=== PATIENT | female | born 1930 | race Two or more races ===

== ENCOUNTER 2017-08-10 12:53 | Inpatient (IN) | payer MEDICARE ==
[2017-08-10] MEDS ORDERED: DILTIAZEM 50 MG in SODIUM CHLORIDE 0.9% 40 ML IV ONE (13:19)
[2017-08-10 13:50] LABS: Basophils % (A) 0 %; Eosinophils % (A) 0 %; HCT 41.1 % (34.0-46.0); HGB 13.3 gm/dL (11.4-16.0); Lymphocytes # (A) 1.3 k/uL (1.0-4.8); Lymphocytes % (A) 13 %; MCH 30.1 pg (25.0-35.0); MCHC 32.3 g/dL (31.0-37.0); Mean Platelet Volume 7.3; Monocytes # (A) 0.6 k/uL (0-1.0); Monocytes % (A) 6 %; Neutrophils % (A) 80 %; Platelet Count 189 k/uL (150-450); RBC 4.42 m/uL (3.80-5.40); RDW 12.9 % (11.5-15.5)
[2017-08-10 13:56] LABS: Prothrombin Time 9.9 sec (9.0-12.0)
--- NOTE | 2017-08-10 13:57 | XR ---
EXAMINATION TYPE: XR chest 2V DATE OF EXAM: 08/10/2017 HISTORY: difficulty breathing. REFERENCE: Previous study dated 08/07/2014. FINDINGS: Lung volumes are prominent. There are chronic interstitial changes. There is no superimpose d pneumonia or edema. Pleural spaces are clear. The heart is mildly enlarged. IMPRESSION: 1. COPD AND CHRONIC INTERSTITIAL CHANGE. 2. MILD CARDIOMEGALY.
[2017-08-10 14:00] LABS: Albumin 3.7 g/dL (3.5-5.0); Potassium 3.9 mmol/L (3.5-5.1); Total Bilirubin 0.5 mg/dL (0.2-1.3); Total Protein 6.3 g/dL (6.3-8.2)
[2017-08-10 14:06] LABS: Partial Thromboplastin Time 19.4 sec (22.0-30.0)
--- NOTE | 2017-08-10 14:07 | ED ---
General Adult HPI - General Chief complaint: Shortness of Breath Stated complaint: AIMEE Time Seen by Provider: 08/10/17 12:54 Source: patient, EMS, RN notes reviewed, old records reviewed Mode of arrival: EMS - History of Present Illness Initial comments: This is an 87 female to the ER for evasive shortness of breath increased cough and congestion positive COPD no chest pain. Patient has multiple recent hospital admissions. No recent fevers. Patient denies active chest pain. She does admit to again continue shortness of breath, feels lightheaded, feels like her heart is racing. Patient does have history of atrial fibrillation, not currently on blood thinners - Related Data Home Medications Medication Instructions Recorded Confirmed Atenolol [Tenormin] 25 mg PO DAILY 08/07/14 08/10/17 Digoxin [Lanoxin] 125 mcg PO DAILY 08/07/14 08/10/17 Furosemide [Lasix] 40 mg PO DAILY 08/07/14 08/10/17 Insulin Glargine [Lantus] 32 unit SQ DAILY 08/07/14 08/10/17 Potassium Chloride [Klor-Con 10] 10 meq PO DAILY 08/07/14 08/10/17 clonazePAM [KlonoPIN] 1 mg PO TID 08/07/14 08/10/17 Allergies Allergy/AdvReac Type Severity Reaction Status Date / Time amoxicillin [From Augmentin] Allergy Unknown Verified 08/10/17 13:54 clavulanic acid Allergy Unknown Verified 08/10/17 13:54 [From Augmentin] levofloxacin [From Levaquin] Allergy Hives/Vomit Verified 08/10/17 13:54 ing Penicillins Allergy Rash/Hives Verified 08/10/17 13:54 Sulfa (Sulfonamide Allergy Confusion Verified 08/10/17 13:54 Antibiotics) MEGHAN Inhibitors AdvReac COUGHING Verified 08/10/17 13:54 albuterol AdvReac Rapid Verified 08/10/17 13:54 Heart Rate alprazolam [From Xanax] AdvReac Unknown Verified 08/10/17 13:54 candesartan [From Atacand] AdvReac Blood Verified 08/10/17 13:54 pressure drops carvedilol [From Coreg] AdvReac Hallucinati Verified 08/10/17 13:54 ons ciprofloxacin [From Cipro] AdvReac Vomiting Verified 08/10/17 13:54 ciprofloxacin HCl AdvReac Vomiting Verified 08/10/17 13:54 [From Cipro] clindamycin AdvReac Nausea & Verified 08/10/17 13:54 Vomiting codeine AdvReac Nausea Verified 08/10/17 13:54 doxycycline AdvReac shaking Verified 08/10/17 13:54 midazolam HCl [From Versed] AdvReac Confusion Verified 08/10/17 13:54 spironolactone AdvReac ANXIETY Verified 08/10/17 13:54 steroids AdvReac Confusion Uncoded 08/10/17 13:09 Review of Systems ROS Statement: Those systems with pertinent positive or pertinent negative responses have been documented in the HPI. ROS Other: All systems not noted in ROS Statement are negative. Past Medical History Past Medical History: Atrial Fibrillation, Chest Pain / Angina, Heart Failure, Diabetes Mellitus, Hyperlipidemia, Hypertension, Myocardial Infarction ([place]) Additional Past Medical History / Comment(s): bronchitis Last Myocardial Infarction Date:: 1994 History of Any Multi-Drug Resistant Organisms: None Reported Past Surgical History: Breast Surgery, Joint Replacement, Orthopedic Surgery, Tonsillectomy, Tubal Ligation Additional Past Surgical History / Comment(s): "negative stress test years ago" , benign breast tumors removed, total knee replacement right leg Past Anesthesia/Blood Transfusion Reactions: No Reported Reaction Past Psychological History: Anxiety Smoking Status: Never smoker Past Alcohol Use History: None Reported Past Drug Use History: None Reported - Past Family History Daughter(s) Family Medical History: Pulmonary Embolus General Exam General appearance: alert, anxious, in distress Head exam: Present: atraumatic, normocephalic, normal inspection Eye exam: Present: normal appearance, PERRL, EOMI. Absent: scleral icterus, conjunctival injection, periorbital swelling ENT exam: Present: normal exam, mucous membranes moist Neck exam: Present: normal inspection. Absent: tenderness, meningismus, lymphadenopathy Respiratory exam: Present: respiratory distress, wheezes, accessory muscle use, decreased breath sounds, prolonged expiratory. Absent: rales, rhonchi, stridor Cardiovascular Exam: Present: tachycardia, irregular rhythm, normal heart sounds. Absent: systolic murmur, diastolic murmur, rubs, gallop, clicks GI/Abdominal exam: Present: soft, normal bowel sounds. Absent: distended, tenderness, guarding, rebound, rigid Extremities exam: Present: normal inspection, full ROM, normal capillary refill. Absent: tenderness, pedal edema, joint swelling, calf tenderness Back exam: Present: normal inspection Neurological exam: Present: alert, oriented X3, CN II-XII intact Psychiatric exam: Present: normal affect, normal mood Skin exam: Present: warm, dry, intact, normal color. Absent: rash Course Vital Signs 08/10/17 13:09 Temperature 97.3 F L Pulse Rate 150 H Respiratory 26 H Rate O2 Sat by Pulse 99 Oximetry EKG Findings - EKG Comments: EKG Findings:: EKG shows A. fib with RVR rate 149, QRS 142, QTc 444 Medical Decision Making - Medical Decision Making 87 female the ER for evaluation of positive shortness of breath, and A. fib with RVR with active COPD. Patient be admitted for cardiopulmonary monitoring and evaluation treatment - Lab Data Result diagrams: 08/10/17 13:36 08/10/17 13:36 Lab Results 08/10/17 08/10/17 08/10/17 Range/Units 13:36 13:36 13:36 WBC 10.0 (3.8-10.6) k/uL RBC 4.42 (3.80-5.40) m/uL Hgb 13.3 (11.4-16.0) gm/dL Hct 41.1 (34.0-46.0) % MCV 93.0 (80.0-100.0) fL MCH 30.1 (25.0-35.0) pg MCHC 32.3 (31.0-37.0) g/dL RDW 12.9 (11.5-15.5) % Plt Count 189 (150-450) k/uL Neutrophils % 80 % Lymphocytes % 13 % Monocytes % 6 % Eosinophils % 0 % Basophils % 0 % Neutrophils # 8.0 H (1.3-7.7) k/uL Lymphocytes # 1.3 (1.0-4.8) k/uL Monocytes # 0.6 (0-1.0) k/uL Eosinophils # 0.0 (0-0.7) k/uL Basophils # 0.0 (0-0.2) k/uL PT 9.9 (9.0-12.0) sec INR 1.0 (<1.2) APTT 19.4 L (22.0-30.0) sec Sodium 139 (137-145) mmol/L Potassium 3.9 (3.5-5.1) mmol/L Chloride 102 (98-107) mmol/L Carbon Dioxide 24 (22-30) mmol/L Anion Gap 13 mmol/L BUN 31 H (7-17) mg/dL Creatinine 0.81 (0.52-1.04) mg/dL Est GFR (CKD-EPI)AfAm 77 (>60 ml/min/1.73 sqM) Est GFR (CKD-EPI)NonAf 67 (>60 ml/min/1.73 sqM) Glucose 316 H (74-99) mg/dL Calcium 9.0 (8.4-10.2) mg/dL Total Bilirubin 0.5 (0.2-1.3) mg/dL AST 220 H (14-36) U/L ALT 236 H (9-52) U/L Alkaline Phosphatase 56 (38-126) U/L Total Protein 6.3 (6.3-8.2) g/dL Albumin 3.7 (3.5-5.0) g/dL - Radiology Data Radiology results: report reviewed (Chest x-ray negative), image reviewed Critical Care Time Critical Care Time: Yes Total Critical Care Time: 31 Disposition Clinical Impression: Acute exacerbation of chronic obstructive airways disease, Atrial fibrillation with RVR Disposition: ADMITTED IP TO THIS HOSP Condition: Fair Referrals: Tamiko Lee MD [Primary Care Provider] - 1-2 days
[2017-08-10 14:23] LABS: Creatine Kinase MB 1.3 ng/mL (0.0-2.4)
[2017-08-10 14:25] LABS: Troponin I 0.051 ng/mL (0.000-0.034)
[2017-08-10] MEDS ORDERED: NITROGLYCERIN SL TABS 0.4 MG TAB SUBLINGUAL PRN (14:25)
[2017-08-10] MEDS ORDERED: ASPIRIN 81 MG PO STA (14:25)
[2017-08-10 15:23] LABS: Appearance,Urine Clear (Clear); Bilirubin,Urine Negative (Negative); Blood,Urine Negative (Negative); Color,Urine Colorless; Glucose,Urine (UA) 3+ (Negative); Ketones,Urine Negative (Negative); Leukocyte Esterase,Urine Negative (Negative); Nitrite,Urine Negative (Negative); Protein,Urine Negative (Negative); Specific Gravity,Urine 1.007 (1.001-1.035); Urobilinogen,Urine <2.0 mg/dL (<2.0)
[2017-08-10 17:24] LABS: Glucose,Whole Blood 220 mg/dL (75-99)
[2017-08-10] MEDS ORDERED: clonazePAM 1 MG TAB PO PRN (18:12)
[2017-08-10 20:49] LABS: Glucose,Whole Blood 256 mg/dL (75-99)
[2017-08-10 20:57] LABS: Creatine Kinase MB 1.6 ng/mL (0.0-2.4)
[2017-08-10 20:59] LABS: Troponin I 0.087 ng/mL (0.000-0.034)
[2017-08-10] MEDS: DILTIAZEM 50 MG in SODIUM CHLORIDE 0.9% 40 ML IV SCH (21:12)
[2017-08-10] MEDS ORDERED: DEXTROSE 5% IN WATER 100 ML with AMIODARONE 150 MG IV ONE (23:08)
[2017-08-10] MEDS ORDERED: LORazepam 2 MG/ML INJ IV PRN (23:58)
[2017-08-11 00:34] LABS: Glucose,Whole Blood 217 mg/dL (75-99)
[2017-08-11] MEDS: AMIODARONE 450 MG in DEXTROSE 5% IN WATER 250 ML IV SCH ×8 (00:38→22:13)
[2017-08-11] MEDS ORDERED: FUROSEMIDE 10 MG/ML 4 ML VIAL ONE (00:59)
[2017-08-11 01:32] LABS: Basophils # (A) 0.1 k/uL (0-0.2); Basophils % (A) 0 %; Eosinophils # (A) 0.1 k/uL (0-0.7); Eosinophils % (A) 0 %; HCT 43.3 % (34.0-46.0); HGB 14.3 gm/dL (11.4-16.0); Lymphocytes # (A) 3.8 k/uL (1.0-4.8); Lymphocytes % (A) 20 %; MCH 30.5 pg (25.0-35.0); MCHC 32.9 g/dL (31.0-37.0); MCV 92.5 fL (80.0-100.0); Mean Platelet Volume 7.2; Monocytes # (A) 1.3 k/uL (0-1.0); Monocytes % (A) 7 %; Neutrophils # (A) 13.6 k/uL (1.3-7.7); Neutrophils % (A) 71 %; Platelet Count 222 k/uL (150-450); RBC 4.68 m/uL (3.80-5.40); RDW 12.9 % (11.5-15.5); WBC 19.1 k/uL (3.8-10.6)
[2017-08-11 01:38] LABS: ABG Base Excess -3.4 mmol/L; ABG HCO3 25 mmol/L (21-25); ABG Oxygen Saturation 92.2 % (94-97); ABG PCO2 64 mmHg (35-45); ABG PO2 77 mmHg (83-108); ABG TCO2 27 mmol/L (19-24)
[2017-08-11 01:43] LABS: Calcium 9.7 mg/dL (8.4-10.2); Potassium 4.1 mmol/L (3.5-5.1)
[2017-08-11] MEDS ORDERED: PROPOFOL 100 ML IV ONE (01:55)
[2017-08-11 01:59] LABS: Glucose,Whole Blood 290 mg/dL (75-99)
[2017-08-11] MEDS ORDERED: ETOMIDATE 2 MG/ML 10 ML VIAL ONE (02:00)
[2017-08-11] MEDS ORDERED: SUCCINYLCHOLINE CHLORIDE 100 MG/5 ML SYR IV ONE (02:00)
--- NOTE | 2017-08-11 02:02 | XR ---
EXAMINATION TYPE: XR chest 1V portable DATE OF EXAM: 08/11/2017 COMPARISON: Yesterday HISTORY: Short of breath TECHNIQUE: Single frontal view of the chest is obtained. FINDINGS: There is pulmonary vascular congestion and pulmonary interstitial and alveolar edema. Thor acic aorta is atheromatous. There are chest leads. Heart appears not grossly enlarged. IMPRESSION: There is new pulmonary edema compared to yesterday and consistent with acute heart failu re.
[2017-08-11] MEDS ORDERED: SODIUM BICARB 8.4% 50 ML SYR (1 MEQ/ML) IV ONE (02:05)
[2017-08-11] MEDS ORDERED: SODIUM BICARB 8.4% 50 ML SYR (1 MEQ/ML) ONE (02:07)
[2017-08-11 02:10] LABS: Creatine Kinase MB 1.7 ng/mL (0.0-2.4)
[2017-08-11 02:17] LABS: Troponin I 0.081 ng/mL (0.000-0.034)
[2017-08-11] MEDS ORDERED: NALOXONE 0.4 MG/ML 1 ML VIAL IV PRN (02:41)
--- NOTE | 2017-08-11 02:42 | XR ---
EXAMINATION TYPE: XR chest 1V DATE OF EXAM: 08/11/2017 COMPARISON: 08/11/2017, 1 hour ago HISTORY: Check tube placement TECHNIQUE: Single frontal view of the chest is obtained. FINDINGS: Endotracheal tube is present and is 7 cm from the forrest. Nasogastric tube appears in good position. There is some pulmonary edema. There are chest leads. IMPRESSION: Pulmonary edema probably due to heart failure without change compared to the exam one ho ur ago. Endotracheal tube is somewhat high and could be advanced 2 cm.
[2017-08-11] MEDS ORDERED: NOREPINEPHRIN 4 MG-0.9% NS PMX 4 MG/250 ML ML IV ONE (03:06)
[2017-08-11] MEDS ORDERED: HEPARIN SODIUM,PORCINE 10,000 UNIT/ML 1 ML VIAL IV ONE (03:23)
[2017-08-11] MEDS ORDERED: HEPARIN SODIUM,PORCINE 5,000 UNIT/ML 1 ML VIAL IV PRN (03:23)
[2017-08-11] MEDS ORDERED: INSULIN ASPART 100 UNIT/ML 1 ML 10 ML VIAL SQ SCH ×2 (03:27→06:13)
[2017-08-11 03:30] LABS: Glucose,Whole Blood 285 mg/dL (75-99)
[2017-08-11 03:36] LABS: Cholesterol 186 mg/dL (<200); HDL Cholesterol 48 mg/dL (40-60); LDL Cholesterol,Calculated 100 mg/dL (0-99); Triglycerides 189 mg/dL (<150)
[2017-08-11] MEDS: DILTIAZEM 50 MG in SODIUM CHLORIDE 0.9% 40 ML IV SCH ×5 (03:46→19:56)
[2017-08-11] MEDS: PROPOFOL 1,000 MG in EMPTY BAG 1 BAG IV SCH ×4 (03:49→17:01)
[2017-08-11] MEDS: NOREPINEPHRIN 4 MG-0.9% NS PMX 4 MG/250 ML ML IV SCH ×4 (03:49→16:29)
[2017-08-11 03:59] LABS: Prothrombin Time 9.9 sec (9.0-12.0)
[2017-08-11] MEDS: HEPARIN SOD,PORK IN 0.45% NACL 25,000 UNIT in 0.45% NACL 1 500ML.BAG IV SCH ×2 (04:23→21:06)
[2017-08-11 04:47] LABS: Basophils % (A) 0 %; Eosinophils # (A) 0.1 k/uL (0-0.7); Eosinophils % (A) 0 %; HCT 39.4 % (34.0-46.0); HGB 13.1 gm/dL (11.4-16.0); Lymphocytes # (A) 0.8 k/uL (1.0-4.8); Lymphocytes % (A) 4 %; MCH 30.8 pg (25.0-35.0); MCHC 33.2 g/dL (31.0-37.0); MCV 92.7 fL (80.0-100.0); Mean Platelet Volume 7.1; Monocytes # (A) 1.8 k/uL (0-1.0); Monocytes % (A) 10 %; Neutrophils # (A) 15.5 k/uL (1.3-7.7); Neutrophils % (A) 85 %; Platelet Count 211 k/uL (150-450); RBC 4.25 m/uL (3.80-5.40); RDW 12.9 % (11.5-15.5); WBC 18.3 k/uL (3.8-10.6)
[2017-08-11 05:42] LABS: Magnesium 1.8 mg/dL (1.6-2.3); Phosphorus 4.1 mg/dL (2.5-4.5); Potassium 4.2 mmol/L (3.5-5.1)
[2017-08-11] MEDS ORDERED: RX INFO: IV CONTRAST WAS GIVEN 1 EACH MISC MISCELLANE PRN (05:58)
[2017-08-11 06:22] LABS: Glucose,Whole Blood 302 mg/dL (75-99)
--- NOTE | 2017-08-11 06:49 | XR ---
EXAMINATION TYPE: XR chest 1V portable DATE OF EXAM: 08/11/2017 HISTORY: Tube placement. REFERENCE: Previous study dated 08/11/2017. FINDINGS: The patient is ET tube has been advanced. Its tip is now 6 cm from the forrest. Lung volumes are prominent. Heart size is upper limits of normal. There is vascular congestion and mi ld interstitial change. There is some left basilar airspace disease. IMPRESSION: 1. COPD. 2. CONTINUING CHANGES OF CONGESTIVE HEART FAILURE. 3. LEFT BASILAR AIRSPACE DISEASE.
[2017-08-11 07:05] LABS: ABG Base Excess -0.1 mmol/L; ABG HCO3 25 mmol/L (21-25); ABG Oxygen Saturation 98.3 % (94-97); ABG PCO2 39 mmHg (35-45); ABG PH 7.41 (7.35-7.45); ABG PO2 97 mmHg (83-108); ABG TCO2 26 mmol/L (19-24)
[2017-08-11] MEDS ORDERED: Magnesium Replacement Protocol 1 EACH MISC MISCELLANE PRN (07:57)
[2017-08-11] MEDS ORDERED: INSULIN REGULAR BOLUS (FROM DRIP BAG) IV PRN (08:04)
[2017-08-11] MEDS: MAGNESIUM SULFATE-D5W PMX 1 GM in DEXTROSE/WATER 1 100ML.BAG IVPB SCH ×2 (08:50→09:59)
[2017-08-11] MEDS ORDERED: INSULIN DETEMIR 100 UNIT/ML 10 ML VIAL SQ SCH (09:00)
[2017-08-11] MEDS ORDERED: ATENOLOL 25 MG TAB PO SCH (09:00)
[2017-08-11] MEDS ORDERED: FUROSEMIDE 40 MG TAB PO SCH (09:00)
[2017-08-11] MEDS: FUROSEMIDE 10 MG/ML 4 ML VIAL IV SCH (09:14)
[2017-08-11] MEDS: cefTRIAXone IN SWFI 1,000 MG/10 ML SYRINGE IVP SCH (09:14)
[2017-08-11] MEDS: PANTOPRAZOLE 40 MG/10 ML VIAL IVP SCH (09:15)
[2017-08-11] MEDS: CHLORHEXIDINE GLUCONATE 15 ML CUP MUCOUS MEM SCH ×2 (09:15→21:06)
[2017-08-11] MEDS: POTASSIUM CHLORIDE ER 10 MEQ TAB.ER.PRT PO SCH (09:15)
[2017-08-11] MEDS: AZITHROMYCIN 500 MG in SODIUM CHLORIDE 0.9% 250 ML IVPB SCH (09:15)
[2017-08-11] MEDS: ASPIRIN 325 MG TAB PO SCH (09:16)
[2017-08-11] MEDS: DIGOXIN 125 MCG TAB PO SCH (09:16)
[2017-08-11] MEDS: ATORVASTATIN 80 MG TAB PO SCH (09:16)
[2017-08-11] MEDS: INSULIN REGULAR 100 UNIT in SODIUM CHLORIDE 0.9% 100 ML IV SCH (09:25)
[2017-08-11 09:26] LABS: Glucose,Whole Blood 218 mg/dL (75-99)
--- NOTE | 2017-08-11 09:45 | P.HPIM ---
History of Present Illness H&P Date: 08/11/17 Chief Complaint: Shortness of breath Yomaira Mcdonnell is an 87-year-old female well known to my practice who presented to [facility] emergency room with a chief complaint of worsening shortness of breath. She was evaluated in emergency room and was found to have atrial fibrillation with rapid ventricular response and evidence of acute exacerbation of congestive heart failure was pulmonary edema she was started on IV Cardizem drip and IV Lasix and was admitted to telemetry floor, cardiology consultation was requested. While on the telemetry floor patient continued to have rapid ventricular response with heart rate up to 140 bpm, Cardizem drip was increased from 5 mg/h to 10 mg/h, patient continued to have worsening shortness of breath through the night. Around 3 AM patient was having severe shortness of breath and evidence of oxygen desaturation, she was transferred to intensive care unit she was intubated and started on mechanical ventilation. consultation for Dr. Mark pulmonary critical care was initiated. Patient was seen on 08/11/2017 in intensive care unit she is intubated sedated maintained on mechanical ventilation she is requiring pressure support with IV levo fed, she is also on amiodarone drip, Cardizem drip, insulin drip, and IV heparin drip. Chest x-ray is revealing evidence of pulmonary edema, and by basilar infiltrates, patient is maintained on IV Lasix, she is also receiving IV Zithromax and IV Rocephin. EKG revealed atrial fibrillation was rapid ventricular response was a heart rate of 149, also revealed left bundle branch block, troponin level was slightly elevated at 0.087. Past Medical History Past Medical History: Atrial Fibrillation, Chest Pain / Angina, Heart Failure, Diabetes Mellitus, Hyperlipidemia, Hypertension, Myocardial Infarction ([place]) Additional Past Medical History / Comment(s): bronchitis Last Myocardial Infarction Date:: 1994 History of Any Multi-Drug Resistant Organisms: None Reported Past Surgical History: Breast Surgery, Joint Replacement, Orthopedic Surgery, Tonsillectomy, Tubal Ligation Additional Past Surgical History / Comment(s): "negative stress test years ago" , benign breast tumors removed, total knee replacement right leg Past Anesthesia/Blood Transfusion Reactions: No Reported Reaction Past Psychological History: Anxiety Smoking Status: Never smoker Past Alcohol Use History: None Reported Past Drug Use History: None Reported - Past Family History Daughter(s) Family Medical History: Pulmonary Embolus Medications and Allergies Home Medications Medication Instructions Recorded Confirmed Type Atenolol [Tenormin] 25 mg PO DAILY 08/07/14 08/10/17 History Digoxin [Lanoxin] 125 mcg PO DAILY 08/07/14 08/10/17 History Furosemide [Lasix] 40 mg PO DAILY 08/07/14 08/10/17 History Insulin Glargine [Lantus] 32 unit SQ DAILY 08/07/14 08/10/17 History Potassium Chloride [Klor-Con 10] 10 meq PO DAILY 08/07/14 08/10/17 History clonazePAM [KlonoPIN] 1 mg PO TID PRN 08/07/14 08/10/17 History Allergies Allergy/AdvReac Type Severity Reaction Status Date / Time amoxicillin [From Augmentin] Allergy Unknown Verified 08/10/17 13:54 clavulanic acid Allergy Unknown Verified 08/10/17 13:54 [From Augmentin] levofloxacin [From Levaquin] Allergy Hives/Vomit Verified 08/10/17 13:54 ing Penicillins Allergy Rash/Hives Verified 08/10/17 13:54 Sulfa (Sulfonamide Allergy Confusion Verified 08/10/17 13:54 Antibiotics) MEGHAN Inhibitors AdvReac COUGHING Verified 08/10/17 13:54 albuterol AdvReac Rapid Verified 08/10/17 13:54 Heart Rate alprazolam [From Xanax] AdvReac Unknown Verified 08/10/17 13:54 candesartan [From Atacand] AdvReac Blood Verified 08/10/17 13:54 pressure drops carvedilol [From Coreg] AdvReac Hallucinati Verified 08/10/17 13:54 ons ciprofloxacin [From Cipro] AdvReac Vomiting Verified 08/10/17 13:54 ciprofloxacin HCl AdvReac Vomiting Verified 08/10/17 13:54 [From Cipro] clindamycin AdvReac Nausea & Verified 08/10/17 13:54 Vomiting codeine AdvReac Nausea Verified 08/10/17 13:54 doxycycline AdvReac shaking Verified 08/10/17 13:54 midazolam HCl [From Versed] AdvReac Confusion Verified 08/10/17 13:54 spironolactone AdvReac ANXIETY Verified 08/10/17 13:54 steroids AdvReac Confusion Uncoded 08/10/17 13:09 Physical Exam Vitals: Vital Signs Temp Pulse Pulse Pulse Resp BP BP 08/11/17 07:00 94 28 H 08/11/17 06:30 77 27 H 08/11/17 06:00 100 28 H 08/11/17 05:30 99 27 H 08/11/17 05:00 108 H 146 H 148 H 27 H 08/11/17 04:30 91 24 08/11/17 04:00 98.2 F 139 H 26 H 08/11/17 03:30 113 H 26 H 08/11/17 03:00 139 H 31 H 79/59 08/11/17 02:30 142 H 19 82/51 08/11/17 02:00 148 H 135/80 08/11/17 01:46 145 H 08/11/17 01:30 154/105 08/11/17 00:45 148 H 22 124/74 08/11/17 00:30 150 H 22 123/78 08/11/17 00:15 150 H 22 127/90 08/10/17 23:00 98.6 F 138 H 22 93/60 08/10/17 20:00 97.9 F 146 H 140 H 20 123/80 08/10/17 16:00 97.6 F 146 H 16 105/78 08/10/17 14:57 97.7 F 140 H 16 148/78 08/10/17 14:56 97.6 F 144 H 18 105/78 08/10/17 14:26 08/10/17 13:15 26 H 08/10/17 13:09 97.3 F L 150 H 26 H Pulse Ox 08/11/17 07:00 97 08/11/17 06:30 97 08/11/17 06:00 96 08/11/17 05:30 99 08/11/17 05:00 98 08/11/17 04:30 98 08/11/17 04:00 100 08/11/17 03:30 100 08/11/17 03:00 99 08/11/17 02:30 97 08/11/17 02:00 95 08/11/17 01:46 08/11/17 01:30 08/11/17 00:45 08/11/17 00:30 08/11/17 00:15 08/10/17 23:00 94 L 08/10/17 20:00 92 L 08/10/17 16:00 94 L 08/10/17 14:57 96 08/10/17 14:56 94 L 08/10/17 14:26 95 08/10/17 13:15 08/10/17 13:09 99 Intake and Output 08/10/17 08/11/17 08/11/17 22:59 06:59 14:59 Intake Total 360 315.084 Output Total 295 Balance 360 20.084 Intake: Intake, IV Titration 315.084 Amount Amiodarone 450 mg In 203.151 Dextrose 5% in Water 250 ml @ 1 MG/MIN 34.53 mls/ hr IV .Q7H31M [facility] Rx#: [id number] Diltiazem 50 mg In Sodium 73.667 Chloride 0.9% 40 ml @ 10 MG/HR 10 mls/hr IV .Q5H [facility] Rx#:[id number] Propofol 1,000 mg In 38.266 Empty Bag 1 bag @ Titrate IV .Q0M [facility] Rx#: [id number] Oral 360 Output: Urine 295 Other: Voiding Method Bedside Commode Bedside Commode Incontinent Incontinent ABP, PAP, CO, CI - Last 8 Hours Arterial Blood Pressure 93/51 Arterial Blood Pressure 114/55 Arterial Blood Pressure 101/45 Arterial Blood Pressure 93/57 Arterial Blood Pressure 99/53 Arterial Blood Pressure 108/59 Arterial Blood Pressure 83/63 Arterial Blood Pressure 99/60 Arterial Blood Pressure 73/40 Patient is intubated sedated maintained on mechanical ventilation HEENT head normocephalic and atraumatic Neck is supple no JVD no goiter no lymphadenopathy Chest exam reveals a few scattered crackles bilaterally no wheezing Cardiac exam reveals irregular heart sounds no gallops no murmurs Abdomen is soft nontender no organomegaly with normal bowel sounds Extremity exam reveals no edema with palpable peripheral pulses Results CBC & Chem 7: 08/11/17 04:35 08/11/17 04:35 Labs: Abnormal Lab Results - Last 24 Hours (Table) 08/10/17 08/10/17 08/10/17 Range/Units 13:30 13:36 13:36 WBC (3.8-10.6) k/uL Neutrophils # 8.0 H (1.3-7.7) k/uL Lymphocytes # (1.0-4.8) k/uL Monocytes # (0-1.0) k/uL APTT (22.0-30.0) sec D-Dimer (<0.60) mg/L FEU ABG pH (7.35-7.45) ABG pCO2 (35-45) mmHg ABG pO2 (83-108) mmHg ABG Total CO2 (19-24) mmol/L ABG O2 Saturation (94-97) % BUN (7-17) mg/dL Glucose (74-99) mg/dL POC Glucose (mg/dL) (75-99) mg/dL Phosphorus (2.5-4.5) mg/dL AST (14-36) U/L ALT (9-52) U/L Total Creatine Kinase (30-135) U/L Troponin I 0.051 H* (0.000-0.034) ng/mL Triglycerides (<150) mg/dL LDL Cholesterol, Calc (0-99) mg/dL Urine Glucose (UA) 3+ H (Negative) 08/10/17 08/10/17 08/10/17 Range/Units 13:36 13:36 17:19 WBC (3.8-10.6) k/uL Neutrophils # (1.3-7.7) k/uL Lymphocytes # (1.0-4.8) k/uL Monocytes # (0-1.0) k/uL APTT 19.4 L (22.0-30.0) sec D-Dimer (<0.60) mg/L FEU ABG pH (7.35-7.45) ABG pCO2 (35-45) mmHg ABG pO2 (83-108) mmHg ABG Total CO2 (19-24) mmol/L ABG O2 Saturation (94-97) % BUN 31 H (7-17) mg/dL Glucose 316 H (74-99) mg/dL POC Glucose (mg/dL) 220 H (75-99) mg/dL Phosphorus (2.5-4.5) mg/dL AST 220 H (14-36) U/L ALT 236 H (9-52) U/L Total Creatine Kinase (30-135) U/L Troponin I (0.000-0.034) ng/mL Triglycerides (<150) mg/dL LDL Cholesterol, Calc (0-99) mg/dL Urine Glucose (UA) (Negative) 08/10/17 08/10/17 08/11/17 Range/Units 19:51 20:44 00:12 WBC (3.8-10.6) k/uL Neutrophils # (1.3-7.7) k/uL Lymphocytes # (1.0-4.8) k/uL Monocytes # (0-1.0) k/uL APTT (22.0-30.0) sec D-Dimer (<0.60) mg/L FEU ABG pH (7.35-7.45) ABG pCO2 (35-45) mmHg ABG pO2 (83-108) mmHg ABG Total CO2 (19-24) mmol/L ABG O2 Saturation (94-97) % BUN (7-17) mg/dL Glucose (74-99) mg/dL POC Glucose (mg/dL) 256 H 217 H (75-99) mg/dL Phosphorus (2.5-4.5) mg/dL AST (14-36) U/L ALT (9-52) U/L Total Creatine Kinase (30-135) U/L Troponin I 0.087 H* (0.000-0.034) ng/mL Triglycerides (<150) mg/dL LDL Cholesterol, Calc (0-99) mg/dL Urine Glucose (UA) (Negative) 08/11/17 08/11/17 08/11/17 Range/Units 01:12 01:12 01:12 WBC (3.8-10.6) k/uL Neutrophils # (1.3-7.7) k/uL Lymphocytes # (1.0-4.8) k/uL Monocytes # (0-1.0) k/uL APTT (22.0-30.0) sec D-Dimer 6.82 H (<0.60) mg/L FEU ABG pH (7.35-7.45) ABG pCO2 (35-45) mmHg ABG pO2 (83-108) mmHg ABG Total CO2 (19-24) mmol/L ABG O2 Saturation (94-97) % BUN (7-17) mg/dL Glucose (74-99) mg/dL POC Glucose (mg/dL) (75-99) mg/dL Phosphorus (2.5-4.5) mg/dL AST (14-36) U/L ALT (9-52) U/L Total Creatine Kinase 147 H (30-135) U/L Troponin I 0.081 H* (0.000-0.034) ng/mL Triglycerides 189 H (<150) mg/dL LDL Cholesterol, Calc 100 H (0-99) mg/dL Urine Glucose (UA) (Negative) 08/11/17 08/11/17 08/11/17 Range/Units 01:12 01:12 01:12 WBC 19.1 H (3.8-10.6) k/uL Neutrophils # 13.6 H (1.3-7.7) k/uL Lymphocytes # (1.0-4.8) k/uL Monocytes # 1.3 H (0-1.0) k/uL APTT 19.0 L (22.0-30.0) sec D-Dimer (<0.60) mg/L FEU ABG pH (7.35-7.45) ABG pCO2 (35-45) mmHg ABG pO2 (83-108) mmHg ABG Total CO2 (19-24) mmol/L ABG O2 Saturation (94-97) % BUN 30 H (7-17) mg/dL Glucose 278 H (74-99) mg/dL POC Glucose (mg/dL) (75-99) mg/dL Phosphorus 5.0 H (2.5-4.5) mg/dL AST (14-36) U/L ALT (9-52) U/L Total Creatine Kinase (30-135) U/L Troponin I (0.000-0.034) ng/mL Triglycerides (<150) mg/dL LDL Cholesterol, Calc (0-99) mg/dL Urine Glucose (UA) (Negative) 08/11/17 08/11/17 08/11/17 Range/Units 01:36 01:46 03:28 WBC (3.8-10.6) k/uL Neutrophils # (1.3-7.7) k/uL Lymphocytes # (1.0-4.8) k/uL Monocytes # (0-1.0) k/uL APTT (22.0-30.0) sec D-Dimer (<0.60) mg/L FEU ABG pH 7.20 L* (7.35-7.45) ABG pCO2 64 H (35-45) mmHg ABG pO2 77 L (83-108) mmHg ABG Total CO2 27 H (19-24) mmol/L ABG O2 Saturation 92.2 L (94-97) % BUN (7-17) mg/dL Glucose (74-99) mg/dL POC Glucose (mg/dL) 290 H 285 H (75-99) mg/dL Phosphorus (2.5-4.5) mg/dL AST (14-36) U/L ALT (9-52) U/L Total Creatine Kinase (30-135) U/L Troponin I (0.000-0.034) ng/mL Triglycerides (<150) mg/dL LDL Cholesterol, Calc (0-99) mg/dL Urine Glucose (UA) (Negative) 08/11/17 08/11/17 08/11/17 Range/Units 04:35 04:35 06:20 WBC 18.3 H (3.8-10.6) k/uL Neutrophils # 15.5 H (1.3-7.7) k/uL Lymphocytes # 0.8 L (1.0-4.8) k/uL Monocytes # 1.8 H (0-1.0) k/uL APTT (22.0-30.0) sec D-Dimer (<0.60) mg/L FEU ABG pH (7.35-7.45) ABG pCO2 (35-45) mmHg ABG pO2 (83-108) mmHg ABG Total CO2 (19-24) mmol/L ABG O2 Saturation (94-97) % BUN 32 H (7-17) mg/dL Glucose 310 H (74-99) mg/dL POC Glucose (mg/dL) 302 H (75-99) mg/dL Phosphorus (2.5-4.5) mg/dL AST (14-36) U/L ALT (9-52) U/L Total Creatine Kinase (30-135) U/L Troponin I (0.000-0.034) ng/mL Triglycerides (<150) mg/dL LDL Cholesterol, Calc (0-99) mg/dL Urine Glucose (UA) (Negative) 08/11/17 08/11/17 Range/Units 07:03 09:25 WBC (3.8-10.6) k/uL Neutrophils # (1.3-7.7) k/uL Lymphocytes # (1.0-4.8) k/uL Monocytes # (0-1.0) k/uL APTT (22.0-30.0) sec D-Dimer (<0.60) mg/L FEU ABG pH (7.35-7.45) ABG pCO2 (35-45) mmHg ABG pO2 (83-108) mmHg ABG Total CO2 26 H (19-24) mmol/L ABG O2 Saturation 98.3 H (94-97) % BUN (7-17) mg/dL Glucose (74-99) mg/dL POC Glucose (mg/dL) 218 H (75-99) mg/dL Phosphorus (2.5-4.5) mg/dL AST (14-36) U/L ALT (9-52) U/L Total Creatine Kinase (30-135) U/L Troponin I (0.000-0.034) ng/mL Triglycerides (<150) mg/dL LDL Cholesterol, Calc (0-99) mg/dL Urine Glucose (UA) (Negative) Thrombosis Risk Factor Assmnt - Choose All That Apply Each Risk Factor Represents 3 Points: Age 75 years or older Thrombosis Risk Factor Assessment Total Risk Factor Score: 3 Thrombosis Risk Factor Assessment Level: Moderate Risk Assessment and Plan Plan: #1 acute hypoxic respiratory failure, requiring intubation and mechanical ventilation #2 atrial fibrillation with rapid ventricular response heart rate is improving currently maintained on amiodarone drip and Cardizem drip #3 acute congestive heart failure exacerbation with evidence of pulmonary edema. Cardiology consultation requested echocardiogram requested the results are still pending #4 Bibasilar infiltrate, rule out pneumonia patient was started on IV Rocephin and IV Zithromax awaiting further evaluation. #5 elevated d-dimer at 6.82 patient is maintained on IV heparin, will have further evaluation for pulmonary embolism once her condition has improved, she will need to be on anticoagulation for atrial fibrillation regardless of testing results for pulmonary embolism. #6 underlying history of hypertension #7 underlying history of diabetes mellitus #8 underlying history of anxiety disorder At this time medication and labs were reviewed continue was current management, case was discussed was critical care this morning Case was also discussed with daughter Saumya at bedside, will continue with full code at this time per daughter.
[2017-08-11 10:14] LABS: Glucose,Whole Blood 187 mg/dL (75-99)
[2017-08-11 11:10] LABS: Glucose,Whole Blood 167 mg/dL (75-99)
[2017-08-11 12:01] LABS: Glucose,Whole Blood 134 mg/dL (75-99)
--- NOTE | 2017-08-11 12:17 | P.CNPUL ---
History of Present Illness Consult date: 08/11/17 Requesting physician: Tamiko Lee Reason for consult: other (Acute hypoxic respiratory failure) Chief complaint: Shortness of breath History of present illness: This is an 87-year-old female with history of multiple medical problems including chronic atrial fibrillation, congestive heart failure, previous [place], hypertension, diabetes, patient presented to the ER with a few days' history of increased shortness of breath. No fever no chills no hemoptysis no chest pain. Patient was noted to be in atrial fibrillation with RVR, and her chest x-ray was suggestive of pulmonary edema. Patient was placed on Cardizem drip, admitted to a monitor bed on telemetry, and cardiac consultation was initiated. Her clinical status course over on selective deteriorated, patient developed worsening atrial fibrillation with RVR rate of 130 up to 150, patient also developed profound shortness of breath, and worsening chest x-ray consistent with worsening pulmonary edema. Patient was transferred to the ICU, I was notified about this patient, and I recommended immediate intubation. Patient was placed on mechanical ventilation, and she remains on mechanical ventilation at this point. Her ventilator settings are tidal volume of 400 assist control rate of 14 FiO2 of 40% and PEEP of 5. Her ABG this morning showed a pO2 of 97 pCO2 of 39 pH of 7.47. Patient is requiring levo fed, she is presently on 16 mcg/m of levo fed, she is also requiring Cardizem drip, amiodarone drip, she is on propofol drip and on insulin drip. Urine output is reasonable. And she is fully sedated at this point. Patient is also on heparin mostly for atrial fibrillation, possibility of thrombus embolic disease and pulmonary embolism is felt to be less likely, however is not entirely ruled out, and the patient is not stable enough at this point to send for CT angiogram of the chest. Hence we 'll continue heparin, and continue ventilatory support. Review of Systems ROS unobtainable: due to endotracheal tube (No family members available at bedside.) Past Medical History Past Medical History: Atrial Fibrillation, Chest Pain / Angina, Heart Failure, Diabetes Mellitus, Hyperlipidemia, Hypertension, Myocardial Infarction ([place]) Additional Past Medical History / Comment(s): bronchitis Last Myocardial Infarction Date:: 1994 History of Any Multi-Drug Resistant Organisms: None Reported Past Surgical History: Breast Surgery, Joint Replacement, Orthopedic Surgery, Tonsillectomy, Tubal Ligation Additional Past Surgical History / Comment(s): "negative stress test years ago" , benign breast tumors removed, total knee replacement right leg Past Anesthesia/Blood Transfusion Reactions: No Reported Reaction Past Psychological History: Anxiety Smoking Status: Never smoker Past Alcohol Use History: None Reported Past Drug Use History: None Reported - Past Family History Daughter(s) Family Medical History: Pulmonary Embolus Medications and Allergies Home Medications Medication Instructions Recorded Confirmed Type Atenolol [Tenormin] 25 mg PO DAILY 08/07/14 08/10/17 History Digoxin [Lanoxin] 125 mcg PO DAILY 08/07/14 08/10/17 History Furosemide [Lasix] 40 mg PO DAILY 08/07/14 08/10/17 History Insulin Glargine [Lantus] 32 unit SQ DAILY 08/07/14 08/10/17 History Potassium Chloride [Klor-Con 10] 10 meq PO DAILY 08/07/14 08/10/17 History clonazePAM [KlonoPIN] 1 mg PO TID PRN 08/07/14 08/10/17 History Allergies Allergy/AdvReac Type Severity Reaction Status Date / Time amoxicillin [From Augmentin] Allergy Unknown Verified 08/10/17 13:54 clavulanic acid Allergy Unknown Verified 08/10/17 13:54 [From Augmentin] levofloxacin [From Levaquin] Allergy Hives/Vomit Verified 08/10/17 13:54 ing Penicillins Allergy Rash/Hives Verified 08/10/17 13:54 Sulfa (Sulfonamide Allergy Confusion Verified 08/10/17 13:54 Antibiotics) MEGHAN Inhibitors AdvReac COUGHING Verified 08/10/17 13:54 albuterol AdvReac Rapid Verified 08/10/17 13:54 Heart Rate alprazolam [From Xanax] AdvReac Unknown Verified 08/10/17 13:54 candesartan [From Atacand] AdvReac Blood Verified 08/10/17 13:54 pressure drops carvedilol [From Coreg] AdvReac Hallucinati Verified 08/10/17 13:54 ons ciprofloxacin [From Cipro] AdvReac Vomiting Verified 08/10/17 13:54 ciprofloxacin HCl AdvReac Vomiting Verified 08/10/17 13:54 [From Cipro] clindamycin AdvReac Nausea & Verified 08/10/17 13:54 Vomiting codeine AdvReac Nausea Verified 08/10/17 13:54 doxycycline AdvReac shaking Verified 08/10/17 13:54 midazolam HCl [From Versed] AdvReac Confusion Verified 08/10/17 13:54 spironolactone AdvReac ANXIETY Verified 08/10/17 13:54 steroids AdvReac Confusion Uncoded 08/10/17 13:09 Physical Exam Vitals: Vital Signs Temp Pulse Pulse Pulse Resp BP BP 08/11/17 11:30 94 28 H 08/11/17 11:00 93 29 H 08/11/17 10:30 87 29 H 08/11/17 10:00 97 28 H 08/11/17 09:30 115 H 29 H 08/11/17 09:00 98 26 H 08/11/17 08:30 111 H 30 H 08/11/17 08:00 98.6 F 90 24 08/11/17 07:00 94 28 H 08/11/17 06:30 77 27 H 08/11/17 06:00 100 28 H 08/11/17 05:30 99 27 H 08/11/17 05:00 108 H 146 H 148 H 27 H 08/11/17 04:30 91 24 08/11/17 04:00 98.2 F 139 H 26 H 08/11/17 03:30 113 H 26 H 08/11/17 03:00 139 H 31 H 79/59 08/11/17 02:30 142 H 19 82/51 08/11/17 02:00 148 H 135/80 08/11/17 01:46 145 H 08/11/17 01:30 154/105 08/11/17 00:45 148 H 22 124/74 08/11/17 00:30 150 H 22 123/78 08/11/17 00:15 150 H 22 127/90 08/10/17 23:00 98.6 F 138 H 22 93/60 08/10/17 20:00 97.9 F 146 H 140 H 20 123/80 08/10/17 16:00 97.6 F 146 H 16 105/78 08/10/17 14:57 97.7 F 140 H 16 148/78 08/10/17 14:56 97.6 F 144 H 18 105/78 08/10/17 14:26 08/10/17 13:15 26 H 08/10/17 13:09 97.3 F L 150 H 26 H Pulse Ox 08/11/17 11:30 99 08/11/17 11:00 99 08/11/17 10:30 99 08/11/17 10:00 99 08/11/17 09:30 100 08/11/17 09:00 98 08/11/17 08:30 98 08/11/17 08:00 98 08/11/17 07:00 97 08/11/17 06:30 97 08/11/17 06:00 96 08/11/17 05:30 99 08/11/17 05:00 98 08/11/17 04:30 98 08/11/17 04:00 100 08/11/17 03:30 100 08/11/17 03:00 99 08/11/17 02:30 97 08/11/17 02:00 95 08/11/17 01:46 08/11/17 01:30 08/11/17 00:45 08/11/17 00:30 08/11/17 00:15 08/10/17 23:00 94 L 08/10/17 20:00 92 L 08/10/17 16:00 94 L 08/10/17 14:57 96 08/10/17 14:56 94 L 08/10/17 14:26 95 08/10/17 13:15 08/10/17 13:09 99 Intake and Output 08/10/17 08/11/17 08/11/17 22:59 06:59 14:59 Intake Total 360 315.084 995.244 Output Total 295 555 Balance 360 20.084 440.244 Intake: IV 550 0.9 KVO Carrier 100 Azithromycin 500 mg In 250 Sodium Chloride 0.9% 250 ml @ 125 mls/hr IVPB DAILY [facility] Rx#:[id number] Magnesium Sulfate-D5w Pmx 200 1 gm In Dextrose/Water 1 100ml.bag @ 100 mls/hr IVPB Q1H [facility] Rx#: [id number] Intake, IV Titration 315.084 445.244 Amount Amiodarone 450 mg In 203.151 55.849 Dextrose 5% in Water 250 ml @ 1 MG/MIN 34.53 mls/ hr IV .Q7H31M [facility] Rx#: [id number] Diltiazem 50 mg In Sodium 73.667 26.333 Chloride 0.9% 40 ml @ 10 MG/HR 10 mls/hr IV .Q5H [facility] Rx#:[id number] Norepinephrin 4 mg-0.9% 265.937 Ns Pmx 4 mg In 250 ml @ Titrate IV .Q0M [facility] Rx#: [id number] Propofol 1,000 mg In 38.266 97.125 Empty Bag 1 bag @ Titrate IV .Q0M [facility] Rx#: [id number] Oral 360 Output: Urine 295 555 Other: Voiding Method Bedside Commode Bedside Commode Indwelling Catheter Incontinent Incontinent Weight 88.451 kg ABP, PAP, CO, CI - Last 8 Hours Arterial Blood Pressure 94/43 Arterial Blood Pressure 99/49 Arterial Blood Pressure 94/49 Arterial Blood Pressure 102/52 Arterial Blood Pressure 111/51 Arterial Blood Pressure 94/53 Arterial Blood Pressure 113/52 Arterial Blood Pressure 114/49 Arterial Blood Pressure 93/51 Arterial Blood Pressure 114/55 Arterial Blood Pressure 101/45 Arterial Blood Pressure 93/57 Arterial Blood Pressure 99/53 Arterial Blood Pressure 108/59 Physical Exam: Revealed a 87-year-old female intubated, on mechanical ventilation, sedated, in no distress. Head: Atraumatic, normocephalic. Eyes: PERRLA, EOMI, no icterus. HEENT:moist mucous membranes.[Neck is supple.] [No neck masses.] [No thyromegaly.] [No JVD.]endotracheal tube is intact. Chest: [fine crackles at the bases, no rhonchi, no wheezes.] Cardiac Exam: [irregular irregular rhythm, tachycardic,Normal S1 and S2, no S3 gallop, 2/6 systolic murmur thought the precordium.r.] Abdomen: [Soft, nontender, no megaly, no rebound, no guarding, normal bowel sounds.] Extremities: [No clubbing, trace of bipedaledema, no cyanosis.] Neurological Exam: patient is fully sedated on propofol, cannot perform neurological examination. Psychiatric: Cannot be performed. Musculoskeletal: Cannot be performed. Results - Laboratory Findings CBC and BMP: 08/11/17 04:35 08/11/17 04:35 ABG ABG pH 7.41 (7.35-7.45) 08/11/17 07:03 ABG pCO2 39 mmHg (35-45) 08/11/17 07:03 ABG pO2 97 mmHg (83-108) 08/11/17 07:03 ABG O2 Saturation 98.3 % (94-97) H 08/11/17 07:03 PT/INR, D-dimer PT 9.9 sec (9.0-12.0) 08/11/17 01:12 INR 1.0 (<1.2) 08/11/17 01:12 D-Dimer 6.82 mg/L FEU (<0.60) H 08/11/17 01:12 Abnormal lab findings: Abnormal Labs 08/10/17 08/10/17 08/10/17 13:30 13:36 13:36 WBC Neutrophils # 8.0 H Lymphocytes # Monocytes # APTT D-Dimer ABG pH ABG pCO2 ABG pO2 ABG Total CO2 ABG O2 Saturation BUN Glucose POC Glucose (mg/dL) Phosphorus AST ALT Total Creatine Kinase Troponin I 0.051 H* Triglycerides LDL Cholesterol, Calc Urine Glucose (UA) 3+ H 08/10/17 08/10/17 08/10/17 13:36 13:36 17:19 WBC Neutrophils # Lymphocytes # Monocytes # APTT 19.4 L D-Dimer ABG pH ABG pCO2 ABG pO2 ABG Total CO2 ABG O2 Saturation BUN 31 H Glucose 316 H POC Glucose (mg/dL) 220 H Phosphorus AST 220 H ALT 236 H Total Creatine Kinase Troponin I Triglycerides LDL Cholesterol, Calc Urine Glucose (UA) 08/10/17 08/10/17 08/11/17 19:51 20:44 00:12 WBC Neutrophils # Lymphocytes # Monocytes # APTT D-Dimer ABG pH ABG pCO2 ABG pO2 ABG Total CO2 ABG O2 Saturation BUN Glucose POC Glucose (mg/dL) 256 H 217 H Phosphorus AST ALT Total Creatine Kinase Troponin I 0.087 H* Triglycerides LDL Cholesterol, Calc Urine Glucose (UA) 08/11/17 08/11/17 08/11/17 01:12 01:12 01:12 WBC Neutrophils # Lymphocytes # Monocytes # APTT D-Dimer 6.82 H ABG pH ABG pCO2 ABG pO2 ABG Total CO2 ABG O2 Saturation BUN Glucose POC Glucose (mg/dL) Phosphorus AST ALT Total Creatine Kinase 147 H Troponin I 0.081 H* Triglycerides 189 H LDL Cholesterol, Calc 100 H Urine Glucose (UA) 08/11/17 08/11/17 08/11/17 01:12 01:12 01:12 WBC 19.1 H Neutrophils # 13.6 H Lymphocytes # Monocytes # 1.3 H APTT 19.0 L D-Dimer ABG pH ABG pCO2 ABG pO2 ABG Total CO2 ABG O2 Saturation BUN 30 H Glucose 278 H POC Glucose (mg/dL) Phosphorus 5.0 H AST ALT Total Creatine Kinase Troponin I Triglycerides LDL Cholesterol, Calc Urine Glucose (UA) 08/11/17 08/11/17 08/11/17 01:36 01:46 03:28 WBC Neutrophils # Lymphocytes # Monocytes # APTT D-Dimer ABG pH 7.20 L* ABG pCO2 64 H ABG pO2 77 L ABG Total CO2 27 H ABG O2 Saturation 92.2 L BUN Glucose POC Glucose (mg/dL) 290 H 285 H Phosphorus AST ALT Total Creatine Kinase Troponin I Triglycerides LDL Cholesterol, Calc Urine Glucose (UA) 08/11/17 08/11/17 08/11/17 04:35 04:35 06:20 WBC 18.3 H Neutrophils # 15.5 H Lymphocytes # 0.8 L Monocytes # 1.8 H APTT D-Dimer ABG pH ABG pCO2 ABG pO2 ABG Total CO2 ABG O2 Saturation BUN 32 H Glucose 310 H POC Glucose (mg/dL) 302 H Phosphorus AST ALT Total Creatine Kinase Troponin I Triglycerides LDL Cholesterol, Calc Urine Glucose (UA) 08/11/17 08/11/17 08/11/17 07:03 09:25 10:11 WBC Neutrophils # Lymphocytes # Monocytes # APTT D-Dimer ABG pH ABG pCO2 ABG pO2 ABG Total CO2 26 H ABG O2 Saturation 98.3 H BUN Glucose POC Glucose (mg/dL) 218 H 187 H Phosphorus AST ALT Total Creatine Kinase Troponin I Triglycerides LDL Cholesterol, Calc Urine Glucose (UA) 08/11/17 08/11/17 08/11/17 10:45 11:09 12:00 WBC Neutrophils # Lymphocytes # Monocytes # APTT 100.8 H* D-Dimer ABG pH ABG pCO2 ABG pO2 ABG Total CO2 ABG O2 Saturation BUN Glucose POC Glucose (mg/dL) 167 H 134 H Phosphorus AST ALT Total Creatine Kinase Troponin I Triglycerides LDL Cholesterol, Calc Urine Glucose (UA) - Diagnostic Findings Chest x-ray: image reviewed (chest x-ray was reviewed, showed mostly COPD, changes of congestive heart failure,difficult to rule out possible underlying bibasilar airspace disease. However I believe the findings are mostly findings of congestive heart failure.) Assessment and Plan Assessment: impression: 1 acute hypoxic respiratory failure requiring intubation and mechanical ventilation. 2 acute congestive heart failure mostly secondary to atrial fibrillation and RVR , and possible underlying systolic dysfunction. 3 atrial fibrillation with RVR, presently on amiodarone and Cardizem drip. Seems to be a bit better controlled since admission to the ICU. 4 possible underlying pneumonia, however clinically it is felt to be less likely. If present, it is likely to be community-acquired, patient is empirically on antibiotics. 5 multiple comorbidities including history of hypertension, type 2 diabetes, and history of underlying anxiety disorder. 6 elevated d-dimer, nonspecific, however the patient is presently on heparin, not stable enough to arrange for CT angiogram of the chest at this point, but this is to be considered in the next 24 hours depending on her overall clinical status and on her renal profile. In the meantime continue heparin as per protocol. Recommendation: Continue ventilatory support, hemodynamic support, patient is requiring norepinephrine presently at 16 g. Nutritional support, antiarrhythmic medications including amiodarone and Cardizem empiric antibiotics for presumptive by basilar airspace disease although clinically felt to be less likely.continue GI prophylaxis. Continue heparin. Will follow closely. Cardiology was consulted. Critical care time is 40 minutes. Time with Patient: Greater than 30
--- NOTE | 2017-08-11 12:22 | P.CRDCN ---
History of Present Illness Consult date: 08/11/17 Chief complaint: Shortness of breath History of present illness: This is a pleasant 87-year-old female patient with a past medical history significant for severe cardiomyopathy based on an echocardiogram was performed in 2014, chronic atrial fibrillation, hypertension, dyslipidemia, presented to the emergency room complaining of shortness of breath. Currently the patient is intubated and she is on ventilatory. The history was taken from the chart as well as from her son who was bit side. The shortness of breath started about 3 days ago and has gotten worse since. She did not have any symptoms of chest pain or chest discomfort. When she presented to the emergency room, she was in mild respiratory distress and she was in A. fib with RVR. Initially the patient was admitted to the selective floor and she was started on Cardizem drip but apparently the shortness of breath get worse and the patient developed acute respiratory failure required intubation and mechanical ventilation. Beside that she was hypotensive requiring vasopressors was Levophed. The chest x-ray showed findings consistent with CHF. The cardiac enzymes are slightly abnormal. Currently the patient continues to be hemodynamically unstable and she continues to be on Levophed. Beside that she is on Cardizem as well as she is on amiodarone. She is in atrial fibrillation with heart rate around 90 beats per minutes. I am going to wean her from the Cardizem drip and continue the amiodarone at this point in view of the hemodynamic instability. Past Medical History Past Medical History: Atrial Fibrillation, Chest Pain / Angina, Heart Failure, Diabetes Mellitus, Hyperlipidemia, Hypertension, Myocardial Infarction (ID) Additional Past Medical History / Comment(s): bronchitis Last Myocardial Infarction Date:: 1994 History of Any Multi-Drug Resistant Organisms: None Reported Past Surgical History: Breast Surgery, Joint Replacement, Orthopedic Surgery, Tonsillectomy, Tubal Ligation Additional Past Surgical History / Comment(s): "negative stress test years ago" , benign breast tumors removed, total knee replacement right leg Past Anesthesia/Blood Transfusion Reactions: No Reported Reaction Past Psychological History: Anxiety Smoking Status: Never smoker Past Alcohol Use History: None Reported Past Drug Use History: None Reported - Past Family History Daughter(s) Family Medical History: Pulmonary Embolus Medications and Allergies Home Medications Medication Instructions Recorded Confirmed Type Atenolol [Tenormin] 25 mg PO DAILY 08/07/14 08/10/17 History Digoxin [Lanoxin] 125 mcg PO DAILY 08/07/14 08/10/17 History Furosemide [Lasix] 40 mg PO DAILY 08/07/14 08/10/17 History Insulin Glargine [Lantus] 32 unit SQ DAILY 08/07/14 08/10/17 History Potassium Chloride [Klor-Con 10] 10 meq PO DAILY 08/07/14 08/10/17 History clonazePAM [KlonoPIN] 1 mg PO TID PRN 08/07/14 08/10/17 History Allergies Allergy/AdvReac Type Severity Reaction Status Date / Time amoxicillin [From Augmentin] Allergy Unknown Verified 08/10/17 13:54 clavulanic acid Allergy Unknown Verified 08/10/17 13:54 [From Augmentin] levofloxacin [From Levaquin] Allergy Hives/Vomit Verified 08/10/17 13:54 ing Penicillins Allergy Rash/Hives Verified 08/10/17 13:54 Sulfa (Sulfonamide Allergy Confusion Verified 08/10/17 13:54 Antibiotics) MEGHAN Inhibitors AdvReac COUGHING Verified 08/10/17 13:54 albuterol AdvReac Rapid Verified 08/10/17 13:54 Heart Rate alprazolam [From Xanax] AdvReac Unknown Verified 08/10/17 13:54 candesartan [From Atacand] AdvReac Blood Verified 08/10/17 13:54 pressure drops carvedilol [From Coreg] AdvReac Hallucinati Verified 08/10/17 13:54 ons ciprofloxacin [From Cipro] AdvReac Vomiting Verified 08/10/17 13:54 ciprofloxacin HCl AdvReac Vomiting Verified 08/10/17 13:54 [From Cipro] clindamycin AdvReac Nausea & Verified 08/10/17 13:54 Vomiting codeine AdvReac Nausea Verified 08/10/17 13:54 doxycycline AdvReac shaking Verified 08/10/17 13:54 midazolam HCl [From Versed] AdvReac Confusion Verified 08/10/17 13:54 spironolactone AdvReac ANXIETY Verified 08/10/17 13:54 steroids AdvReac Confusion Uncoded 08/10/17 13:09 Physical Exam Vitals: Vital Signs Temp Pulse Pulse Pulse Resp BP BP 08/11/17 11:30 94 28 H 08/11/17 11:00 93 29 H 08/11/17 10:30 87 29 H 08/11/17 10:00 97 28 H 08/11/17 09:30 115 H 29 H 08/11/17 09:00 98 26 H 08/11/17 08:30 111 H 30 H 08/11/17 08:00 98.6 F 90 24 08/11/17 07:00 94 28 H 08/11/17 06:30 77 27 H 08/11/17 06:00 100 28 H 08/11/17 05:30 99 27 H 08/11/17 05:00 108 H 146 H 148 H 27 H 08/11/17 04:30 91 24 08/11/17 04:00 98.2 F 139 H 26 H 08/11/17 03:30 113 H 26 H 08/11/17 03:00 139 H 31 H 79/59 08/11/17 02:30 142 H 19 82/51 08/11/17 02:00 148 H 135/80 08/11/17 01:46 145 H 08/11/17 01:30 154/105 08/11/17 00:45 148 H 22 124/74 08/11/17 00:30 150 H 22 123/78 08/11/17 00:15 150 H 22 127/90 08/10/17 23:00 98.6 F 138 H 22 93/60 08/10/17 20:00 97.9 F 146 H 140 H 20 123/80 08/10/17 16:00 97.6 F 146 H 16 105/78 08/10/17 14:57 97.7 F 140 H 16 148/78 08/10/17 14:56 97.6 F 144 H 18 105/78 08/10/17 14:26 08/10/17 13:15 26 H 08/10/17 13:09 97.3 F L 150 H 26 H Pulse Ox 08/11/17 11:30 99 08/11/17 11:00 99 08/11/17 10:30 99 08/11/17 10:00 99 08/11/17 09:30 100 08/11/17 09:00 98 08/11/17 08:30 98 08/11/17 08:00 98 08/11/17 07:00 97 08/11/17 06:30 97 08/11/17 06:00 96 08/11/17 05:30 99 08/11/17 05:00 98 08/11/17 04:30 98 08/11/17 04:00 100 08/11/17 03:30 100 08/11/17 03:00 99 08/11/17 02:30 97 08/11/17 02:00 95 08/11/17 01:46 08/11/17 01:30 08/11/17 00:45 08/11/17 00:30 08/11/17 00:15 08/10/17 23:00 94 L 08/10/17 20:00 92 L 08/10/17 16:00 94 L 08/10/17 14:57 96 08/10/17 14:56 94 L 08/10/17 14:26 95 08/10/17 13:15 08/10/17 13:09 99 Intake and Output 08/10/17 08/11/17 08/11/17 22:59 06:59 14:59 Intake Total 360 315.084 995.244 Output Total 295 555 Balance 360 20.084 440.244 Intake: IV 550 0.9 KVO Carrier 100 Azithromycin 500 mg In 250 Sodium Chloride 0.9% 250 ml @ 125 mls/hr IVPB DAILY [facility] Rx#:[id number] Magnesium Sulfate-D5w Pmx 200 1 gm In Dextrose/Water 1 100ml.bag @ 100 mls/hr IVPB Q1H [facility] Rx#: [id number] Intake, IV Titration 315.084 445.244 Amount Amiodarone 450 mg In 203.151 55.849 Dextrose 5% in Water 250 ml @ 1 MG/MIN 34.53 mls/ hr IV .Q7H31M [facility] Rx#: [id number] Diltiazem 50 mg In Sodium 73.667 26.333 Chloride 0.9% 40 ml @ 10 MG/HR 10 mls/hr IV .Q5H [facility] Rx#:[id number] Norepinephrin 4 mg-0.9% 265.937 Ns Pmx 4 mg In 250 ml @ Titrate IV .Q0M [facility] Rx#: [id number] Propofol 1,000 mg In 38.266 97.125 Empty Bag 1 bag @ Titrate IV .Q0M [facility] Rx#: [id number] Oral 360 Output: Urine 295 555 Other: Voiding Method Bedside Commode Bedside Commode Indwelling Catheter Incontinent Incontinent Weight 88.451 kg ABP, PAP, CO, CI - Last 8 Hours Arterial Blood Pressure 94/43 Arterial Blood Pressure 99/49 Arterial Blood Pressure 94/49 Arterial Blood Pressure 102/52 Arterial Blood Pressure 111/51 Arterial Blood Pressure 94/53 Arterial Blood Pressure 113/52 Arterial Blood Pressure 114/49 Arterial Blood Pressure 93/51 Arterial Blood Pressure 114/55 Arterial Blood Pressure 101/45 Arterial Blood Pressure 93/57 Arterial Blood Pressure 99/53 Arterial Blood Pressure 108/59 - Constitutional General appearance: no acute distress - Respiratory Respiratory: bilateral: diminished - Cardiovascular Rhythm: irregularly irregular Heart sounds: normal: S1, S2 Results 08/11/17 04:35 08/11/17 04:35 Cardiac Enzymes 08/10/17 08/10/17 08/10/17 Range/Units 13:36 13:36 19:51 AST 220 H (14-36) U/L CK-MB (CK-2) 1.3 1.6 (0.0-2.4) ng/mL Troponin I 0.051 H* 0.087 H* (0.000-0.034) ng/mL 08/11/17 Range/Units 01:12 AST (14-36) U/L CK-MB (CK-2) 1.7 (0.0-2.4) ng/mL Troponin I 0.081 H* (0.000-0.034) ng/mL Coagulation 08/10/17 08/11/17 08/11/17 Range/Units 13:36 01:12 10:45 PT 9.9 9.9 (9.0-12.0) sec APTT 19.4 L 19.0 L 100.8 H* (22.0-30.0) sec Lipids 08/11/17 Range/Units 01:12 Triglycerides 189 H (<150) mg/dL Cholesterol 186 (<200) mg/dL HDL Cholesterol 48 (40-60) mg/dL CBC 08/10/17 08/11/17 08/11/17 Range/Units 13:36 01:12 04:35 WBC 10.0 19.1 H 18.3 H (3.8-10.6) k/uL RBC 4.42 4.68 4.25 (3.80-5.40) m/uL Hgb 13.3 14.3 13.1 (11.4-16.0) gm/dL Hct 41.1 43.3 39.4 (34.0-46.0) % Plt Count 189 222 211 (150-450) k/uL Comprehensive Metabolic Panel 08/10/17 08/11/17 08/11/17 Range/Units 13:36 01:12 04:35 Sodium 139 143 142 (137-145) mmol/L Potassium 3.9 4.1 4.2 (3.5-5.1) mmol/L Chloride 102 104 103 (98-107) mmol/L Carbon Dioxide 24 23 24 (22-30) mmol/L BUN 31 H 30 H 32 H (7-17) mg/dL Creatinine 0.81 0.90 0.98 (0.52-1.04) mg/dL Glucose 316 H 278 H 310 H (74-99) mg/dL Calcium 9.0 9.7 9.0 (8.4-10.2) mg/dL AST 220 H (14-36) U/L ALT 236 H (9-52) U/L Alkaline Phosphatase 56 (38-126) U/L Total Protein 6.3 (6.3-8.2) g/dL Albumin 3.7 (3.5-5.0) g/dL Current Medications Generic Name Dose Route Start Last Admin Trade Name Freq PRN Reason Stop Dose Admin Aspirin 325 mg 08/11/17 09:00 08/11/17 09:16 Aspirin PO 325 mg DAILY [facility] Administration Atorvastatin Calcium 80 mg 08/11/17 09:00 08/11/17 09:16 Lipitor PO 80 mg DAILY [facility] Administration Ceftriaxone Sodium 1,000 mg 08/11/17 09:00 08/11/17 09:14 Rocephin IVP 1,000 mg Q24HR [facility] Administration Chlorhexidine Gluconate 15 ml 08/11/17 09:00 08/11/17 09:15 Peridex MUCOUS MEM 15 ml BID [facility] Administration Clonazepam 1 mg 08/10/17 18:12 08/10/17 20:35 Klonopin PO 1 mg TID PRN Administration Anxiety Digoxin 125 mcg 08/11/17 09:00 08/11/17 09:16 Lanoxin PO 125 mcg DAILY [facility] Administration Furosemide 40 mg 08/11/17 09:00 08/11/17 09:14 Lasix IV 40 mg DAILY [facility] Administration Heparin Sodium (Porcine) 0 unit 08/11/17 03:23 Heparin IV PER PROTOCOL PRN Low PTT Protocol Diltiazem HCl 50 mg/ Sodium 50 mls @ 10 mls/hr 08/10/17 20:30 08/11/17 11:33 Chloride IV 5 mg/hr .Q5H [facility] 5 mls/hr 10 MG/HR Administration Amiodarone HCl 450 mg/ 259 mls @ 34.53 mls/hr 08/10/17 23:15 08/11/17 11:32 Dextrose/Water IV 08/11/17 23:08 0.5 mg/min .Q7H31M [facility] 17.26 mls/hr Protocol Administration 1 MG/MIN Propofol 1,000 mg/ IV Solution 100 mls @ 0 mls/hr 08/11/17 02:45 08/11/17 11: 48 IV 34.85 mcg/kg/min .Q0M [facility] 18.5 mls/hr Protocol Administration Titrate Heparin Sodium/Sodium Chloride 500 mls @ 31.84 mls/hr 08/11/17 03:30 04:23 25,000 unit/ Sodium Chloride IV 18 units/kg/hr .[id number] [facility] 31.84 mls/hr Protocol Administration 18 UNITS/KG/HR Norepinephrine Bitartrate 4 mg in 250 mls @ 0 mls/hr 08/11/17 03:30 08/11/17 11:49 Levophed-0.9% Nacl 4 Mg/250ml Pmx IV 17 mcg/min .Q0M [facility] 63.75 mls/hr Protocol Titration Titrate Insulin Human Regular 100 unit 101 mls @ 0 mls/hr 08/11/17 08:30 08/11/17 09: 25 / Sodium Chloride IV 4 units/hr .Q0M [facility] 4.04 mls/hr Protocol Administration Per Protocol Azithromycin 500 mg/ Sodium 250 mls @ 125 mls/hr 08/11/17 09:00 08/11/17 09: 15 Chloride IVPB 125 mls/hr DAILY [facility] Administration Lorazepam 0.5 mg 08/10/17 23:58 08/11/17 00:41 Ativan IV 0.5 mg Q4HR PRN Administration Anxiety Miscellaneous Information 1 each 08/11/17 05:58 Rx Info: Iv Contrast Was Given MISCELLANE 08/13/17 05:59 DAILY PRN Per Protocol Miscellaneous Information 1 each 08/11/17 07:57 Magnesium Per Protocol MISCELLANE DAILY PRN Per Protocol Protocol Naloxone HCl 0.2 mg 08/11/17 02:41 Narcan IV Q2M PRN Opioid Reversal Nitroglycerin 0.4 mg 08/10/17 14:25 Nitrostat SUBLINGUAL Q5M PRN Chest Pain Pantoprazole Sodium 40 mg 08/11/17 09:00 08/11/17 09:15 Protonix IVP 40 mg DAILY [facility] Administration Potassium Chloride 10 meq 08/11/17 09:00 08/11/17 09:15 K-Dur 10 PO Not Given DAILY [facility] Intake and Output 08/10/17 08/11/17 08/11/17 22:59 06:59 14:59 Intake Total 360 315.084 995.244 Output Total 295 555 Balance 360 20.084 440.244 Intake: IV 550 0.9 KVO Carrier 100 Azithromycin 500 mg In 250 Sodium Chloride 0.9% 250 ml @ 125 mls/hr IVPB DAILY [facility] Rx#:[id number] Magnesium Sulfate-D5w Pmx 200 1 gm In Dextrose/Water 1 100ml.bag @ 100 mls/hr IVPB Q1H [facility] Rx#: [id number] Intake, IV Titration 315.084 445.244 Amount Amiodarone 450 mg In 203.151 55.849 Dextrose 5% in Water 250 ml @ 1 MG/MIN 34.53 mls/ hr IV .Q7H31M [facility] Rx#: [id number] Diltiazem 50 mg In Sodium 73.667 26.333 Chloride 0.9% 40 ml @ 10 MG/HR 10 mls/hr IV .Q5H [facility] Rx#:[id number] Norepinephrin 4 mg-0.9% 265.937 Ns Pmx 4 mg In 250 ml @ Titrate IV .Q0M [facility] Rx#: [id number] Propofol 1,000 mg In 38.266 97.125 Empty Bag 1 bag @ Titrate IV .Q0M [facility] Rx#: [id number] Oral 360 Output: Urine 295 555 Other: Voiding Method Bedside Commode Bedside Commode Indwelling Catheter Incontinent Incontinent Weight 88.451 kg Patient Weight 08/12/17 06:59 Weight 88.451 kg 08/11/17 04:35 08/11/17 04:35 Assessment and Plan Assessment: Assessment #1 acute hypoxic respiratory failure #2 congestive heart failure exacerbation secondary to systolic dysfunction #3 atrial fibrillation with a rapid ventricular response #4 infiltrate on the chest x-ray likely related to pneumonia #5 shock likely to be septic #6 abnormal d-dimer #7 known severe cardiomyopathy Plan #1 try to wean the patient from the vasopressin at this point of time #2 I will discontinue the Cardizem IV and continue the amiodarone at this point #3 continue the IV heparin for anticoagulation for possible PE which is unlikely #4 follow-up with the patient. Thank you for allowing us participate in her care and we'll continue following up with the patient.
[2017-08-11 13:06] LABS: Glucose,Whole Blood 128 mg/dL (75-99)
[2017-08-11] MEDS ORDERED: ACETAMINOPHEN IV (For NPO) 1,000 MG in EMPTY BAG 1 BAG IVPB PRN (13:34)
[2017-08-11 14:13] LABS: Glucose,Whole Blood 155 mg/dL (75-99)
[2017-08-11] MEDS ORDERED: SODIUM CHLORIDE 0.9% 250 ML IV ONE (15:05)
[2017-08-11 15:10] LABS: Glucose,Whole Blood 163 mg/dL (75-99)
[2017-08-11 16:15] LABS: Glucose,Whole Blood 192 mg/dL (75-99)
[2017-08-11 17:04] LABS: Glucose,Whole Blood 180 mg/dL (75-99)
[2017-08-11 18:13] LABS: Glucose,Whole Blood 179 mg/dL (75-99)
[2017-08-11 18:16] LABS: Hemoglobin A1C 7.2 % (4.0-6.0)
[2017-08-11 19:16] LABS: Glucose,Whole Blood 168 mg/dL (75-99)
[2017-08-11 20:06] LABS: Glucose,Whole Blood 171 mg/dL (75-99)
[2017-08-11] MEDS: AMIODARONE 200 MG TAB PO SCH (21:06)
[2017-08-11 21:17] LABS: Glucose,Whole Blood 176 mg/dL (75-99)
[2017-08-11 22:13] LABS: Glucose,Whole Blood 186 mg/dL (75-99)
[2017-08-11 23:19] LABS: Glucose,Whole Blood 176 mg/dL (75-99)
[2017-08-12 00:05] LABS: Glucose,Whole Blood 180 mg/dL (75-99)
[2017-08-12 02:10] LABS: Glucose,Whole Blood 185 mg/dL (75-99)
[2017-08-12 03:01] LABS: Glucose,Whole Blood 154 mg/dL (75-99)
[2017-08-12] MEDS: DILTIAZEM 50 MG in SODIUM CHLORIDE 0.9% 40 ML IV SCH ×5 (03:39→23:08)
[2017-08-12 04:09] LABS: Glucose,Whole Blood 156 mg/dL (75-99)
[2017-08-12 04:44] LABS: Basophils % (A) 0 %; Eosinophils # (A) 0.1 k/uL (0-0.7); Eosinophils % (A) 1 %; HCT 37.3 % (34.0-46.0); HGB 12.8 gm/dL (11.4-16.0); Lymphocytes # (A) 2.5 k/uL (1.0-4.8); Lymphocytes % (A) 17 %; MCH 31.3 pg (25.0-35.0); MCHC 34.2 g/dL (31.0-37.0); MCV 91.5 fL (80.0-100.0); Mean Platelet Volume 6.8; Monocytes # (A) 1.2 k/uL (0-1.0); Monocytes % (A) 8 %; Neutrophils # (A) 10.6 k/uL (1.3-7.7); Neutrophils % (A) 72 %; Platelet Count 210 k/uL (150-450); RBC 4.08 m/uL (3.80-5.40); RDW 13.4 % (11.5-15.5); WBC 14.8 k/uL (3.8-10.6)
[2017-08-12 05:35] LABS: Glucose,Whole Blood 167 mg/dL (75-99)
[2017-08-12] MEDS: PROPOFOL 1,000 MG in EMPTY BAG 1 BAG IV SCH ×2 (05:35→09:29)
[2017-08-12] MEDS: NOREPINEPHRIN 4 MG-0.9% NS PMX 4 MG/250 ML ML IV SCH ×2 (05:35→19:29)
[2017-08-12 05:41] LABS: Calcium 8.4 mg/dL (8.4-10.2); Magnesium 2.5 mg/dL (1.6-2.3); Phosphorus 2.3 mg/dL (2.5-4.5); Potassium 3.7 mmol/L (3.5-5.1)
[2017-08-12] MEDS ORDERED: Potassium Replacement Protocol 1 EACH MISC MISCELLANE PRN (06:03)
[2017-08-12] MEDS ORDERED: POTASSIUM BICARBONATE/CIT AC 20 MEQ TABLET.EFF NG-TUBE SCH (07:00)
[2017-08-12 07:10] LABS: Glucose,Whole Blood 147 mg/dL (75-99)
[2017-08-12 07:51] LABS: ABG Base Excess 1.9 mmol/L; ABG HCO3 26 mmol/L (21-25); ABG Oxygen Saturation 97.9 % (94-97); ABG PCO2 39 mmHg (35-45); ABG PH 7.43 (7.35-7.45); ABG PO2 90 mmHg (83-108); ABG TCO2 27 mmol/L (19-24)
--- NOTE | 2017-08-12 07:56 | P.PN ---
Subjective Progress Note Date: 08/12/17 Principal diagnosis: Acute respiratory failure This is a pleasant 87-year-old female patient with a past medical history significant for severe cardiomyopathy based on an echocardiogram was performed in 2014, chronic atrial fibrillation, hypertension, dyslipidemia, presented to the emergency room complaining of shortness of breath. Currently the patient is intubated and she is on ventilatory. The history was taken from the chart as well as from her son who was bit side. The shortness of breath started about 3 days ago and has gotten worse since. She did not have any symptoms of chest pain or chest discomfort. When she presented to the emergency room, she was in mild respiratory distress and she was in A. fib with RVR. Initially the patient was admitted to the selective floor and she was started on Cardizem drip but apparently the shortness of breath get worse and the patient developed acute respiratory failure required intubation and mechanical ventilation. Beside that she was hypotensive requiring vasopressors was Levophed. The chest x-ray showed findings consistent with CHF. The cardiac enzymes are slightly abnormal. On follow-up with the patient today on 08/12/2017, she continues to be hemodynamically unstable and she continues to be on Levophed. Beside that she is on Cardizem as well as she is on amiodarone. She continues to be in atrial fibrillation with heart rate around 120 beats per minutes. She continues to be in acute respiratory failure and requiring 40% FiO2. I am going to increase the dose of Cardizem to 15 mg per hour. Continue amiodarone. Continue heparin. Follow-up on the chest x-ray which was performed earlier today. And follow-up with the patient. Objective - Vital Signs Vital signs: Vital Signs Temp 102.0 F H 08/12/17 07:00 Pulse 128 H 08/12/17 07:00 Resp 28 H 08/12/17 07:00 BP 79/59 08/11/17 03:00 Pulse Ox 98 08/12/17 07:00 Intake & Output 08/11/17 08/12/17 08/12/17 18:59 06:59 18:59 Intake Total 2278.298 1452.432 40 Output Total 990 460 60 Balance 1288.298 992.432 -20 Weight 88.451 kg 92.1 kg Intake: IV 870 311.84 10 0.9 250 mL bolus 250 0.9 KVO Carrier 170 120 10 Azithromycin 500 mg In 250 Sodium Chloride 0.9% 250 ml @ 125 mls/hr IVPB DAILY [facility] Rx#:[id number] Diltiazem 50 mg In Sodium 160 Chloride 0.9% 40 ml @ 10 MG/HR 10 mls/hr IV .Q5H [facility] Rx#:[id number] Heparin Sod,Pork in 0.45% 31.84 NaCl 25,000 unit In 0.45 % NaCl 1 500ml.bag @ 18 UNITS/KG/HR 31.84 mls/hr IV .[id number] [facility] Rx#: [id number] Magnesium Sulfate-D5w Pmx 200 1 gm In Dextrose/Water 1 100ml.bag @ 100 mls/hr IVPB Q1H [facility] Rx#: [id number] Intake, IV Titration 1198.298 630.592 Amount Amiodarone 450 mg In 55.849 Dextrose 5% in Water 250 ml @ 1 MG/MIN 34.53 mls/ hr IV .Q7H31M [facility] Rx#: [id number] Diltiazem 50 mg In Sodium 76.333 57 Chloride 0.9% 40 ml @ 10 MG/HR 10 mls/hr IV .Q5H [facility] Rx#:[id number] Heparin Sod,Pork in 0.45% 252.067 204.281 NaCl 25,000 unit In 0.45 % NaCl 1 500ml.bag @ 18 UNITS/KG/HR 31.84 mls/hr IV .[id number] [facility] Rx#: [id number] Insulin Regular 100 unit 18.174 19.311 In Sodium Chloride 0.9% 100 ml @ Per Protocol IV .Q0M [facility] Rx#:[id number] Norepinephrin 4 mg-0.9% 598.750 250 Ns Pmx 4 mg In 250 ml @ Titrate IV .Q0M [facility] Rx#: [id number] Propofol 1,000 mg In 197.125 100 Empty Bag 1 bag @ Titrate IV .Q0M [facility] Rx#: [id number] Tube Feeding 160 410 30 Other 50 100 Output: Urine 990 460 60 Other: Voiding Method Indwelling Catheter Indwelling Catheter ABP, PAP, CO, CI - Last Documented Arterial Blood Pressure 101/51 - Constitutional General appearance: Present: no acute distress - Respiratory Respiratory: bilateral: diminished - Cardiovascular Rhythm: irregularly irregular Heart sounds: normal: S1, S2 - Labs CBC & Chem 7: 08/12/17 04:30 08/12/17 04:30 Labs: Abnormal Lab Results - Last 24 Hours (Table) 08/11/17 08/11/17 08/11/17 Range/Units 04:35 09:25 10:11 WBC (3.8-10.6) k/uL Neutrophils # (1.3-7.7) k/uL Monocytes # (0-1.0) k/uL APTT (22.0-30.0) sec BUN (7-17) mg/dL Glucose (74-99) mg/dL POC Glucose (mg/dL) 218 H 187 H (75-99) mg/dL Hemoglobin A1c 7.2 H (4.0-6.0) % Plasma Lactic Acid Jonathan (0.7-2.0) mmol/L Phosphorus (2.5-4.5) mg/dL Magnesium (1.6-2.3) mg/dL 08/11/17 08/11/17 08/11/17 Range/Units 10:45 11:09 12:00 WBC (3.8-10.6) k/uL Neutrophils # (1.3-7.7) k/uL Monocytes # (0-1.0) k/uL APTT 100.8 H* (22.0-30.0) sec BUN (7-17) mg/dL Glucose (74-99) mg/dL POC Glucose (mg/dL) 167 H 134 H (75-99) mg/dL Hemoglobin A1c (4.0-6.0) % Plasma Lactic Acid Jonathan (0.7-2.0) mmol/L Phosphorus (2.5-4.5) mg/dL Magnesium (1.6-2.3) mg/dL 08/11/17 08/11/17 08/11/17 Range/Units 13:03 14:11 15:08 WBC (3.8-10.6) k/uL Neutrophils # (1.3-7.7) k/uL Monocytes # (0-1.0) k/uL APTT (22.0-30.0) sec BUN (7-17) mg/dL Glucose (74-99) mg/dL POC Glucose (mg/dL) 128 H 155 H 163 H (75-99) mg/dL Hemoglobin A1c (4.0-6.0) % Plasma Lactic Acid Jonathan (0.7-2.0) mmol/L Phosphorus (2.5-4.5) mg/dL Magnesium (1.6-2.3) mg/dL 08/11/17 08/11/17 08/11/17 Range/Units 15:30 16:14 17:02 WBC (3.8-10.6) k/uL Neutrophils # (1.3-7.7) k/uL Monocytes # (0-1.0) k/uL APTT (22.0-30.0) sec BUN (7-17) mg/dL Glucose (74-99) mg/dL POC Glucose (mg/dL) 192 H 180 H (75-99) mg/dL Hemoglobin A1c (4.0-6.0) % Plasma Lactic Acid Jonathan 2.3 H* (0.7-2.0) mmol/L Phosphorus (2.5-4.5) mg/dL Magnesium (1.6-2.3) mg/dL 08/11/17 08/11/17 08/11/17 Range/Units 18:10 19:05 19:14 WBC (3.8-10.6) k/uL Neutrophils # (1.3-7.7) k/uL Monocytes # (0-1.0) k/uL APTT 58.1 H (22.0-30.0) sec BUN (7-17) mg/dL Glucose (74-99) mg/dL POC Glucose (mg/dL) 179 H 168 H (75-99) mg/dL Hemoglobin A1c (4.0-6.0) % Plasma Lactic Acid Jonathan (0.7-2.0) mmol/L Phosphorus (2.5-4.5) mg/dL Magnesium (1.6-2.3) mg/dL 08/11/17 08/11/17 08/11/17 Range/Units 19:19 20:05 21:16 WBC (3.8-10.6) k/uL Neutrophils # (1.3-7.7) k/uL Monocytes # (0-1.0) k/uL APTT (22.0-30.0) sec BUN (7-17) mg/dL Glucose (74-99) mg/dL POC Glucose (mg/dL) 171 H 176 H (75-99) mg/dL Hemoglobin A1c (4.0-6.0) % Plasma Lactic Acid Jonathan 2.1 H* (0.7-2.0) mmol/L Phosphorus (2.5-4.5) mg/dL Magnesium (1.6-2.3) mg/dL 08/11/17 08/11/17 08/12/17 Range/Units 22:12 23:16 00:03 WBC (3.8-10.6) k/uL Neutrophils # (1.3-7.7) k/uL Monocytes # (0-1.0) k/uL APTT (22.0-30.0) sec BUN (7-17) mg/dL Glucose (74-99) mg/dL POC Glucose (mg/dL) 186 H 176 H 180 H (75-99) mg/dL Hemoglobin A1c (4.0-6.0) % Plasma Lactic Acid Jonathan (0.7-2.0) mmol/L Phosphorus (2.5-4.5) mg/dL Magnesium (1.6-2.3) mg/dL 08/12/17 08/12/17 08/12/17 Range/Units 02:09 02:59 04:07 WBC (3.8-10.6) k/uL Neutrophils # (1.3-7.7) k/uL Monocytes # (0-1.0) k/uL APTT (22.0-30.0) sec BUN (7-17) mg/dL Glucose (74-99) mg/dL POC Glucose (mg/dL) 185 H 154 H 156 H (75-99) mg/dL Hemoglobin A1c (4.0-6.0) % Plasma Lactic Acid Jonathan (0.7-2.0) mmol/L Phosphorus (2.5-4.5) mg/dL Magnesium (1.6-2.3) mg/dL 08/12/17 08/12/17 08/12/17 Range/Units 04:30 04:30 05:33 WBC 14.8 H (3.8-10.6) k/uL Neutrophils # 10.6 H (1.3-7.7) k/uL Monocytes # 1.2 H (0-1.0) k/uL APTT (22.0-30.0) sec BUN 22 H (7-17) mg/dL Glucose 174 H (74-99) mg/dL POC Glucose (mg/dL) 167 H (75-99) mg/dL Hemoglobin A1c (4.0-6.0) % Plasma Lactic Acid Jonathan (0.7-2.0) mmol/L Phosphorus 2.3 L (2.5-4.5) mg/dL Magnesium 2.5 H (1.6-2.3) mg/dL 08/12/17 08/12/17 Range/Units 05:37 07:08 WBC (3.8-10.6) k/uL Neutrophils # (1.3-7.7) k/uL Monocytes # (0-1.0) k/uL APTT 44.0 H (22.0-30.0) sec BUN (7-17) mg/dL Glucose (74-99) mg/dL POC Glucose (mg/dL) 147 H (75-99) mg/dL Hemoglobin A1c (4.0-6.0) % Plasma Lactic Acid Jonathan (0.7-2.0) mmol/L Phosphorus (2.5-4.5) mg/dL Magnesium (1.6-2.3) mg/dL Assessment and Plan Assessment: Assessment #1 acute hypoxic respiratory failure #2 congestive heart failure exacerbation secondary to systolic dysfunction #3 atrial fibrillation with a rapid ventricular response #4 infiltrate on the chest x-ray likely related to pneumonia #5 shock likely to be septic #6 abnormal d-dimer #7 known severe cardiomyopathy Plan #1 try to wean the patient from the vasopressin at this point of time #2 the right wean the patient from the Cardizem. #3 continue the IV heparin for anticoagulation for possible PE which is unlikely #4 follow-up with the patient. #5 follow-up on the chest x-ray Thank you for allowing us participate in her care and we'll continue following up with the patient.
--- NOTE | 2017-08-12 08:11 | XR ---
EXAMINATION TYPE: XR chest 1V portable DATE OF EXAM: 08/12/2017 COMPARISON: Prior chest 08/21/2017 HISTORY: Intubated TECHNIQUE: Single frontal view of the chest is obtained. FINDINGS: Endotracheal tube and NG tube are overlying appropriate positions. There are overlying car diac leads. No evident pneumothorax. Basilar increased density persists. Patient is rotated, heart si ze is likely stable. Interstitium mildly increased. Prominent lung volumes are stable. IMPRESSION: Findings are similar to prior exam. There may be basilar effusions and associated atelec tasis versus pneumonia or edema. Correlate for possible volume overload, pulmonary venous hypertensio n and interstitial edema. Follow-up recommended.
[2017-08-12 08:13] LABS: Glucose,Whole Blood 149 mg/dL (75-99)
[2017-08-12] MEDS: INSULIN REGULAR 100 UNIT in SODIUM CHLORIDE 0.9% 100 ML IV SCH (08:27)
[2017-08-12] MEDS: PANTOPRAZOLE 40 MG/10 ML VIAL IVP SCH (08:37)
[2017-08-12] MEDS: ASPIRIN 325 MG TAB PO SCH (08:37)
[2017-08-12] MEDS: CHLORHEXIDINE GLUCONATE 15 ML CUP MUCOUS MEM SCH ×2 (08:37→23:08)
[2017-08-12] MEDS: DIGOXIN 125 MCG TAB PO SCH (08:37)
[2017-08-12] MEDS: FUROSEMIDE 10 MG/ML 4 ML VIAL IV SCH (08:37)
[2017-08-12] MEDS: ATORVASTATIN 80 MG TAB PO SCH (08:37)
[2017-08-12] MEDS: AMIODARONE 200 MG TAB PO SCH ×2 (08:37→20:05)
[2017-08-12] MEDS: POTASSIUM CHLORIDE ER 10 MEQ TAB.ER.PRT PO SCH (08:38)
[2017-08-12] MEDS: AZITHROMYCIN 500 MG in SODIUM CHLORIDE 0.9% 250 ML IVPB SCH (08:41)
[2017-08-12] MEDS: cefTRIAXone IN SWFI 1,000 MG/10 ML SYRINGE IVP SCH (08:41)
[2017-08-12 09:03] LABS: Glucose,Whole Blood 136 mg/dL (75-99)
[2017-08-12] MEDS ORDERED: Phosphorus Replacement Protoco 1 EACH MISC MISCELLANE PRN (09:35)
--- NOTE | 2017-08-12 09:46 | P.PN ---
Subjective Progress Note Date: 08/12/17 Principal diagnosis: Respiratory failure Progress note dated 08/12/2017 This is an 87-year-old female seen by my partner yesterday with acute hypoxemic respiratory failure, requiring intubation and mechanical ventilation. Respiratory failure was thought related to acute congestive heart failure with secondary atrial fibrillation and RVR. There may also be systolic dysfunction as well. The patient also has a possibility of a pneumonia although it was felt to be less likely. In addition, the patient has a history of benign essential hypertension type 2 diabetes and chronic anxiety disorder. The patient was also thought to have possibly have had a pulmonary embolism because of an elevated d-dimer. The patient's currently already on heparin for his her atrial fibrillation. I will get Dopplers of the lower extremities but no need to proceed with CT angiogram at this time. Currently, the patient is on the mechanical ventilator. The mechanical ventilator settings include the assist control mode rate of 14 tidal volume 400 FiO2 40% and a PEEP of 5. Arterial blood gases show a PaO2 of 90 a PaCO2 of 39 and a pH of 7.43. We will increase the rate up to 24 and decreased the tidal volume from 400 to 350. Currently, the patient's on a saline IV at 10 mL an hour heparin infusion via weightbase protocol norepinephrine at 22 mics per minute, Cardizem drip at 15 mg an hour, insulin drip at 1.5 units per hour propofol 45 mics per kilogram per minute and vital high protein at 35 with a goal of 50 mL per hour. The patient will definitely have a daily interuption of sedation today a random cortisol level and Dopplers of the lower extremities. Objective - Vital Signs Vital signs: Vital Signs Temp 102.0 F H 08/12/17 07:00 Pulse 128 H 08/12/17 07:00 Resp 28 H 08/12/17 07:00 BP 79/59 08/11/17 03:00 Pulse Ox 98 08/12/17 07:00 Intake & Output 08/11/17 08/12/17 08/12/17 18:59 06:59 18:59 Intake Total 2278.298 1452.432 208.033 Output Total 990 460 60 Balance 1288.298 992.432 148.033 Weight 88.451 kg 92.1 kg Intake: IV 870 311.84 10 0.9 250 mL bolus 250 0.9 KVO Carrier 170 120 10 Azithromycin 500 mg In 250 Sodium Chloride 0.9% 250 ml @ 125 mls/hr IVPB DAILY [facility] Rx#:[id number] Diltiazem 50 mg In Sodium 160 Chloride 0.9% 40 ml @ 10 MG/HR 10 mls/hr IV .Q5H [facility] Rx#:[id number] Heparin Sod,Pork in 0.45% 31.84 NaCl 25,000 unit In 0.45 % NaCl 1 500ml.bag @ 18 UNITS/KG/HR 31.84 mls/hr IV .[id number] [facility] Rx#: [id number] Magnesium Sulfate-D5w Pmx 200 1 gm In Dextrose/Water 1 100ml.bag @ 100 mls/hr IVPB Q1H [facility] Rx#: [id number] Intake, IV Titration 1198.298 630.592 168.033 Amount Amiodarone 450 mg In 55.849 Dextrose 5% in Water 250 ml @ 1 MG/MIN 34.53 mls/ hr IV .Q7H31M [facility] Rx#: [id number] Diltiazem 50 mg In Sodium 76.333 57 47.833 Chloride 0.9% 40 ml @ 10 MG/HR 10 mls/hr IV .Q5H [facility] Rx#:[id number] Heparin Sod,Pork in 0.45% 252.067 204.281 NaCl 25,000 unit In 0.45 % NaCl 1 500ml.bag @ 18 UNITS/KG/HR 31.84 mls/hr IV .[id number] [facility] Rx#: [id number] Insulin Regular 100 unit 18.174 19.311 26.600 In Sodium Chloride 0.9% 100 ml @ Per Protocol IV .Q0M [facility] Rx#:[id number] Norepinephrin 4 mg-0.9% 598.750 250 Ns Pmx 4 mg In 250 ml @ Titrate IV .Q0M [facility] Rx#: [id number] Propofol 1,000 mg In 197.125 100 93.6 Empty Bag 1 bag @ Titrate IV .Q0M [facility] Rx#: [id number] Tube Feeding 160 410 30 Other 50 100 Output: Urine 990 460 60 Other: Voiding Method Indwelling Catheter Indwelling Catheter ABP, PAP, CO, CI - Last Documented Arterial Blood Pressure 101/51 - Exam No acute distress, she is sedated, with an orally placed endotracheal tube and NG tube. HEENT examination is grossly unremarkable. Mucous membranes are moist. Neck supple. Full range of motion. No adenopathy thyromegaly or neck vein distention. Cardiovascular examination reveals regular rhythm rate. S1-S2 normal. No S3 or S4. No discernible murmur noted. Lungs reveal diffuse coarse rhonchi. A few scattered crackles are noted. Breath sounds are diminished throughout but equal bilaterally. Abdomen soft bowel sounds are heard. No masses or tenderness. Extremities are intact. No cyanosis clubbing or edema. Skin is without rash or lesion. Neurologic examination is very difficult to assess. - Labs CBC & Chem 7: 08/12/17 04:30 08/12/17 04:30 Labs: Abnormal Lab Results - Last 24 Hours (Table) 08/11/17 08/11/17 08/11/17 Range/Units 04:35 10:11 10:45 WBC (3.8-10.6) k/uL Neutrophils # (1.3-7.7) k/uL Monocytes # (0-1.0) k/uL APTT 100.8 H* (22.0-30.0) sec ABG HCO3 (21-25) mmol/L ABG Total CO2 (19-24) mmol/L ABG O2 Saturation (94-97) % BUN (7-17) mg/dL Glucose (74-99) mg/dL POC Glucose (mg/dL) 187 H (75-99) mg/dL Hemoglobin A1c 7.2 H (4.0-6.0) % Plasma Lactic Acid Jonathan (0.7-2.0) mmol/L Phosphorus (2.5-4.5) mg/dL Magnesium (1.6-2.3) mg/dL 08/11/17 08/11/17 08/11/17 Range/Units 11:09 12:00 13:03 WBC (3.8-10.6) k/uL Neutrophils # (1.3-7.7) k/uL Monocytes # (0-1.0) k/uL APTT (22.0-30.0) sec ABG HCO3 (21-25) mmol/L ABG Total CO2 (19-24) mmol/L ABG O2 Saturation (94-97) % BUN (7-17) mg/dL Glucose (74-99) mg/dL POC Glucose (mg/dL) 167 H 134 H 128 H (75-99) mg/dL Hemoglobin A1c (4.0-6.0) % Plasma Lactic Acid Jonathan (0.7-2.0) mmol/L Phosphorus (2.5-4.5) mg/dL Magnesium (1.6-2.3) mg/dL 08/11/17 08/11/17 08/11/17 Range/Units 14:11 15:08 15:30 WBC (3.8-10.6) k/uL Neutrophils # (1.3-7.7) k/uL Monocytes # (0-1.0) k/uL APTT (22.0-30.0) sec ABG HCO3 (21-25) mmol/L ABG Total CO2 (19-24) mmol/L ABG O2 Saturation (94-97) % BUN (7-17) mg/dL Glucose (74-99) mg/dL POC Glucose (mg/dL) 155 H 163 H (75-99) mg/dL Hemoglobin A1c (4.0-6.0) % Plasma Lactic Acid Jonathan 2.3 H* (0.7-2.0) mmol/L Phosphorus (2.5-4.5) mg/dL Magnesium (1.6-2.3) mg/dL 08/11/17 08/11/17 08/11/17 Range/Units 16:14 17:02 18:10 WBC (3.8-10.6) k/uL Neutrophils # (1.3-7.7) k/uL Monocytes # (0-1.0) k/uL APTT (22.0-30.0) sec ABG HCO3 (21-25) mmol/L ABG Total CO2 (19-24) mmol/L ABG O2 Saturation (94-97) % BUN (7-17) mg/dL Glucose (74-99) mg/dL POC Glucose (mg/dL) 192 H 180 H 179 H (75-99) mg/dL Hemoglobin A1c (4.0-6.0) % Plasma Lactic Acid Jonathan (0.7-2.0) mmol/L Phosphorus (2.5-4.5) mg/dL Magnesium (1.6-2.3) mg/dL 08/11/17 08/11/17 08/11/17 Range/Units 19:05 19:14 19:19 WBC (3.8-10.6) k/uL Neutrophils # (1.3-7.7) k/uL Monocytes # (0-1.0) k/uL APTT 58.1 H (22.0-30.0) sec ABG HCO3 (21-25) mmol/L ABG Total CO2 (19-24) mmol/L ABG O2 Saturation (94-97) % BUN (7-17) mg/dL Glucose (74-99) mg/dL POC Glucose (mg/dL) 168 H (75-99) mg/dL Hemoglobin A1c (4.0-6.0) % Plasma Lactic Acid Jonathan 2.1 H* (0.7-2.0) mmol/L Phosphorus (2.5-4.5) mg/dL Magnesium (1.6-2.3) mg/dL 08/11/17 08/11/17 08/11/17 Range/Units 20:05 21:16 22:12 WBC (3.8-10.6) k/uL Neutrophils # (1.3-7.7) k/uL Monocytes # (0-1.0) k/uL APTT (22.0-30.0) sec ABG HCO3 (21-25) mmol/L ABG Total CO2 (19-24) mmol/L ABG O2 Saturation (94-97) % BUN (7-17) mg/dL Glucose (74-99) mg/dL POC Glucose (mg/dL) 171 H 176 H 186 H (75-99) mg/dL Hemoglobin A1c (4.0-6.0) % Plasma Lactic Acid Jonathan (0.7-2.0) mmol/L Phosphorus (2.5-4.5) mg/dL Magnesium (1.6-2.3) mg/dL 08/11/17 08/12/17 08/12/17 Range/Units 23:16 00:03 02:09 WBC (3.8-10.6) k/uL Neutrophils # (1.3-7.7) k/uL Monocytes # (0-1.0) k/uL APTT (22.0-30.0) sec ABG HCO3 (21-25) mmol/L ABG Total CO2 (19-24) mmol/L ABG O2 Saturation (94-97) % BUN (7-17) mg/dL Glucose (74-99) mg/dL POC Glucose (mg/dL) 176 H 180 H 185 H (75-99) mg/dL Hemoglobin A1c (4.0-6.0) % Plasma Lactic Acid Jonathan (0.7-2.0) mmol/L Phosphorus (2.5-4.5) mg/dL Magnesium (1.6-2.3) mg/dL 08/12/17 08/12/17 08/12/17 Range/Units 02:59 04:07 04:30 WBC 14.8 H (3.8-10.6) k/uL Neutrophils # 10.6 H (1.3-7.7) k/uL Monocytes # 1.2 H (0-1.0) k/uL APTT (22.0-30.0) sec ABG HCO3 (21-25) mmol/L ABG Total CO2 (19-24) mmol/L ABG O2 Saturation (94-97) % BUN (7-17) mg/dL Glucose (74-99) mg/dL POC Glucose (mg/dL) 154 H 156 H (75-99) mg/dL Hemoglobin A1c (4.0-6.0) % Plasma Lactic Acid Jonathan (0.7-2.0) mmol/L Phosphorus (2.5-4.5) mg/dL Magnesium (1.6-2.3) mg/dL 08/12/17 08/12/17 08/12/17 Range/Units 04:30 05:33 05:37 WBC (3.8-10.6) k/uL Neutrophils # (1.3-7.7) k/uL Monocytes # (0-1.0) k/uL APTT 44.0 H (22.0-30.0) sec ABG HCO3 (21-25) mmol/L ABG Total CO2 (19-24) mmol/L ABG O2 Saturation (94-97) % BUN 22 H (7-17) mg/dL Glucose 174 H (74-99) mg/dL POC Glucose (mg/dL) 167 H (75-99) mg/dL Hemoglobin A1c (4.0-6.0) % Plasma Lactic Acid Jonathan (0.7-2.0) mmol/L Phosphorus 2.3 L (2.5-4.5) mg/dL Magnesium 2.5 H (1.6-2.3) mg/dL 08/12/17 08/12/17 08/12/17 Range/Units 07:08 07:45 08:10 WBC (3.8-10.6) k/uL Neutrophils # (1.3-7.7) k/uL Monocytes # (0-1.0) k/uL APTT (22.0-30.0) sec ABG HCO3 26 H (21-25) mmol/L ABG Total CO2 27 H (19-24) mmol/L ABG O2 Saturation 97.9 H (94-97) % BUN (7-17) mg/dL Glucose (74-99) mg/dL POC Glucose (mg/dL) 147 H 149 H (75-99) mg/dL Hemoglobin A1c (4.0-6.0) % Plasma Lactic Acid Jonathan (0.7-2.0) mmol/L Phosphorus (2.5-4.5) mg/dL Magnesium (1.6-2.3) mg/dL 08/12/17 Range/Units 09:01 WBC (3.8-10.6) k/uL Neutrophils # (1.3-7.7) k/uL Monocytes # (0-1.0) k/uL APTT (22.0-30.0) sec ABG HCO3 (21-25) mmol/L ABG Total CO2 (19-24) mmol/L ABG O2 Saturation (94-97) % BUN (7-17) mg/dL Glucose (74-99) mg/dL POC Glucose (mg/dL) 136 H (75-99) mg/dL Hemoglobin A1c (4.0-6.0) % Plasma Lactic Acid Jonathan (0.7-2.0) mmol/L Phosphorus (2.5-4.5) mg/dL Magnesium (1.6-2.3) mg/dL Assessment and Plan Assessment: Acute hypoxemic respiratory failure requiring intubation and mechanical ventilation, likely secondary to acute congestive heart failure as well as atrial fibrillation and RVR and possible underlying systolic dysfunction, and/ or possible pneumonia. Acute congestive heart failure Atrial fibrillation with RVR Possible underlying pneumonia Benign essential hypertension Type 2 diabetes History of anxiety disorder Plan: Plan dated 08/12/2017 The patient today will have a DIS, a random cortisol level and Dopplers of the lower extremities. She is not likely to be weaned today as she still receiving quite a bit of medication. We did make some vent changes increasing the rate from 14 up to 24 and decreasing the tidal volume from 400 down to 350. X-rays labs and medications are all reviewed. We'll continue to wean the norepinephrine. No additional recommendations are made. Prognosis is guarded. Critical care time is 37 minutes. Time with Patient: Greater than 30
[2017-08-12] MEDS ORDERED: POTASSIUM PHOSPHATE 10 MMOL in SODIUM CHLORIDE 0.9% 250 ML IV ONE (10:00)
[2017-08-12 10:01] LABS: Glucose,Whole Blood 173 mg/dL (75-99)
[2017-08-12] MEDS: HEPARIN SOD,PORK IN 0.45% NACL 25,000 UNIT in 0.45% NACL 1 500ML.BAG IV SCH (11:31)
[2017-08-12 11:32] LABS: Glucose,Whole Blood 175 mg/dL (75-99)
[2017-08-12 12:56] LABS: Glucose,Whole Blood 185 mg/dL (75-99)
[2017-08-12 13:10] LABS: Glucose,Whole Blood 173 mg/dL (75-99)
--- NOTE | 2017-08-12 13:50 | US ---
EXAMINATION TYPE: US venous doppler duplex LE BI DATE OF EXAM: 08/12/2017 12:40 PM COMPARISON: NONE CLINICAL HISTORY: elevated d-dimer, unstable for CTA. Elevated d dimer, exam done portable in ICU, pa tient on vent SIDE PERFORMED: Bilateral TECHNIQUE: The lower extremity deep venous system is examined utilizing real time linear array sonog marlene with graded compression, doppler sonography and color-flow sonography. 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 IMPRESSION: Exam is somewhat limited. No evident deep venous thrombosis at or above the knees. 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
--- NOTE | 2017-08-12 14:09 | P.PN ---
Subjective Progress Note Date: 08/12/17 Yomaira Mcdonnell is an 87-year-old female well known to my practice who presented to [facility] emergency room with a chief complaint of worsening shortness of breath. She was evaluated in emergency room and was found to have atrial fibrillation with rapid ventricular response and evidence of acute exacerbation of congestive heart failure was pulmonary edema she was started on IV Cardizem drip and IV Lasix and was admitted to telemetry floor, cardiology consultation was requested. While on the telemetry floor patient continued to have rapid ventricular response with heart rate up to 140 bpm, Cardizem drip was increased from 5 mg/h to 10 mg/h, patient continued to have worsening shortness of breath through the night. Around 3 AM patient was having severe shortness of breath and evidence of oxygen desaturation, she was transferred to intensive care unit she was intubated and started on mechanical ventilation. consultation for Dr. Mark pulmonary critical care was initiated. Patient was seen on 08/11/2017 in intensive care unit she is intubated sedated maintained on mechanical ventilation she is requiring pressure support with IV levo fed, she is also on amiodarone drip, Cardizem drip, insulin drip, and IV heparin drip. Chest x-ray is revealing evidence of pulmonary edema, and by basilar infiltrates, patient is maintained on IV Lasix, she is also receiving IV Zithromax and IV Rocephin. EKG revealed atrial fibrillation was rapid ventricular response was a heart rate of 149, also revealed left bundle branch block, troponin level was slightly elevated at 0.087. On 08/12/2017 patient remains intubated sedated maintained on mechanical ventilation, vent setting is assist control rate of 24 tidal volume 350 FiO2 of 40% and PEEP of 5 patient still requiring norepinephrine drip, Cardizem drip, insulin drip, she also has an NG tube and is receiving protein supplement. Her 2 daughters are at bedside, and are aware of condition. Objective - Vital Signs Vital signs: Vital Signs Temp 99.3 F 08/12/17 12:00 Pulse 133 H 08/12/17 13:00 Resp 29 H 08/12/17 13:00 BP 79/59 08/11/17 03:00 Pulse Ox 96 08/12/17 13:00 Intake & Output 08/11/17 08/12/17 08/12/17 18:59 06:59 18:59 Intake Total 2278.298 1452.432 391.870 Output Total 990 460 940 Balance 1288.298 992.432 -548.130 Weight 88.451 kg 92.1 kg Intake: IV 870 311.84 90 0.9 250 mL bolus 250 0.9 KVO Carrier 170 120 60 Azithromycin 500 mg In 250 Sodium Chloride 0.9% 250 ml @ 125 mls/hr IVPB DAILY [facility] Rx#:[id number] Diltiazem 50 mg In Sodium 160 30 Chloride 0.9% 40 ml @ 10 MG/HR 10 mls/hr IV .Q5H [facility] Rx#:[id number] Heparin Sod,Pork in 0.45% 31.84 NaCl 25,000 unit In 0.45 % NaCl 1 500ml.bag @ 18 UNITS/KG/HR 31.84 mls/hr IV .[id number] [facility] Rx#: [id number] Magnesium Sulfate-D5w Pmx 200 1 gm In Dextrose/Water 1 100ml.bag @ 100 mls/hr IVPB Q1H [facility] Rx#: [id number] Intake, IV Titration 1198.298 630.592 241.870 Amount Amiodarone 450 mg In 55.849 Dextrose 5% in Water 250 ml @ 1 MG/MIN 34.53 mls/ hr IV .Q7H31M [facility] Rx#: [id number] Diltiazem 50 mg In Sodium 76.333 57 47.833 Chloride 0.9% 40 ml @ 10 MG/HR 10 mls/hr IV .Q5H [facility] Rx#:[id number] Heparin Sod,Pork in 0.45% 252.067 204.281 NaCl 25,000 unit In 0.45 % NaCl 1 500ml.bag @ 18 UNITS/KG/HR 31.84 mls/hr IV .[id number] [facility] Rx#: [id number] Insulin Regular 100 unit 18.174 19.311 26.600 In Sodium Chloride 0.9% 100 ml @ Per Protocol IV .Q0M [facility] Rx#:[id number] Norepinephrin 4 mg-0.9% 598.750 250 Ns Pmx 4 mg In 250 ml @ Titrate IV .Q0M [facility] Rx#: [id number] Propofol 1,000 mg In 197.125 100 167.437 Empty Bag 1 bag @ Titrate IV .Q0M [facility] Rx#: [id number] Tube Feeding 160 410 60 Other 50 100 Output: Urine 990 460 940 Other: Voiding Method Indwelling Catheter Indwelling Catheter Indwelling Catheter ABP, PAP, CO, CI - Last Documented Arterial Blood Pressure 107/65 - Exam Patient is intubated sedated maintained on mechanical ventilation HEENT head normocephalic and atraumatic Neck is supple no JVD no goiter no lymphadenopathy Chest exam reveals a few scattered crackles bilaterally no wheezing Cardiac exam reveals irregular heart sounds no gallops no murmurs Abdomen is soft nontender no organomegaly with normal bowel sounds Extremity exam reveals no edema with palpable peripheral pulses - Labs CBC & Chem 7: 08/12/17 04:30 08/12/17 04:30 Labs: Abnormal Lab Results - Last 24 Hours (Table) 08/11/17 08/11/17 08/11/17 Range/Units 04:35 14:11 15:08 WBC (3.8-10.6) k/uL Neutrophils # (1.3-7.7) k/uL Monocytes # (0-1.0) k/uL APTT (22.0-30.0) sec ABG HCO3 (21-25) mmol/L ABG Total CO2 (19-24) mmol/L ABG O2 Saturation (94-97) % BUN (7-17) mg/dL Glucose (74-99) mg/dL POC Glucose (mg/dL) 155 H 163 H (75-99) mg/dL Hemoglobin A1c 7.2 H (4.0-6.0) % Plasma Lactic Acid Jonathan (0.7-2.0) mmol/L Phosphorus (2.5-4.5) mg/dL Magnesium (1.6-2.3) mg/dL 08/11/17 08/11/17 08/11/17 Range/Units 15:30 16:14 17:02 WBC (3.8-10.6) k/uL Neutrophils # (1.3-7.7) k/uL Monocytes # (0-1.0) k/uL APTT (22.0-30.0) sec ABG HCO3 (21-25) mmol/L ABG Total CO2 (19-24) mmol/L ABG O2 Saturation (94-97) % BUN (7-17) mg/dL Glucose (74-99) mg/dL POC Glucose (mg/dL) 192 H 180 H (75-99) mg/dL Hemoglobin A1c (4.0-6.0) % Plasma Lactic Acid Jonathan 2.3 H* (0.7-2.0) mmol/L Phosphorus (2.5-4.5) mg/dL Magnesium (1.6-2.3) mg/dL 08/11/17 08/11/17 08/11/17 Range/Units 18:10 19:05 19:14 WBC (3.8-10.6) k/uL Neutrophils # (1.3-7.7) k/uL Monocytes # (0-1.0) k/uL APTT 58.1 H (22.0-30.0) sec ABG HCO3 (21-25) mmol/L ABG Total CO2 (19-24) mmol/L ABG O2 Saturation (94-97) % BUN (7-17) mg/dL Glucose (74-99) mg/dL POC Glucose (mg/dL) 179 H 168 H (75-99) mg/dL Hemoglobin A1c (4.0-6.0) % Plasma Lactic Acid Jonathan (0.7-2.0) mmol/L Phosphorus (2.5-4.5) mg/dL Magnesium (1.6-2.3) mg/dL 08/11/17 08/11/17 08/11/17 Range/Units 19:19 20:05 21:16 WBC (3.8-10.6) k/uL Neutrophils # (1.3-7.7) k/uL Monocytes # (0-1.0) k/uL APTT (22.0-30.0) sec ABG HCO3 (21-25) mmol/L ABG Total CO2 (19-24) mmol/L ABG O2 Saturation (94-97) % BUN (7-17) mg/dL Glucose (74-99) mg/dL POC Glucose (mg/dL) 171 H 176 H (75-99) mg/dL Hemoglobin A1c (4.0-6.0) % Plasma Lactic Acid Jonathan 2.1 H* (0.7-2.0) mmol/L Phosphorus (2.5-4.5) mg/dL Magnesium (1.6-2.3) mg/dL 08/11/17 08/11/17 08/12/17 Range/Units 22:12 23:16 00:03 WBC (3.8-10.6) k/uL Neutrophils # (1.3-7.7) k/uL Monocytes # (0-1.0) k/uL APTT (22.0-30.0) sec ABG HCO3 (21-25) mmol/L ABG Total CO2 (19-24) mmol/L ABG O2 Saturation (94-97) % BUN (7-17) mg/dL Glucose (74-99) mg/dL POC Glucose (mg/dL) 186 H 176 H 180 H (75-99) mg/dL Hemoglobin A1c (4.0-6.0) % Plasma Lactic Acid Jonathan (0.7-2.0) mmol/L Phosphorus (2.5-4.5) mg/dL Magnesium (1.6-2.3) mg/dL 08/12/17 08/12/17 08/12/17 Range/Units 02:09 02:59 04:07 WBC (3.8-10.6) k/uL Neutrophils # (1.3-7.7) k/uL Monocytes # (0-1.0) k/uL APTT (22.0-30.0) sec ABG HCO3 (21-25) mmol/L ABG Total CO2 (19-24) mmol/L ABG O2 Saturation (94-97) % BUN (7-17) mg/dL Glucose (74-99) mg/dL POC Glucose (mg/dL) 185 H 154 H 156 H (75-99) mg/dL Hemoglobin A1c (4.0-6.0) % Plasma Lactic Acid Jonathan (0.7-2.0) mmol/L Phosphorus (2.5-4.5) mg/dL Magnesium (1.6-2.3) mg/dL 08/12/17 08/12/17 08/12/17 Range/Units 04:30 04:30 05:33 WBC 14.8 H (3.8-10.6) k/uL Neutrophils # 10.6 H (1.3-7.7) k/uL Monocytes # 1.2 H (0-1.0) k/uL APTT (22.0-30.0) sec ABG HCO3 (21-25) mmol/L ABG Total CO2 (19-24) mmol/L ABG O2 Saturation (94-97) % BUN 22 H (7-17) mg/dL Glucose 174 H (74-99) mg/dL POC Glucose (mg/dL) 167 H (75-99) mg/dL Hemoglobin A1c (4.0-6.0) % Plasma Lactic Acid Jonathan (0.7-2.0) mmol/L Phosphorus 2.3 L (2.5-4.5) mg/dL Magnesium 2.5 H (1.6-2.3) mg/dL 08/12/17 08/12/17 08/12/17 Range/Units 05:37 07:08 07:45 WBC (3.8-10.6) k/uL Neutrophils # (1.3-7.7) k/uL Monocytes # (0-1.0) k/uL APTT 44.0 H (22.0-30.0) sec ABG HCO3 26 H (21-25) mmol/L ABG Total CO2 27 H (19-24) mmol/L ABG O2 Saturation 97.9 H (94-97) % BUN (7-17) mg/dL Glucose (74-99) mg/dL POC Glucose (mg/dL) 147 H (75-99) mg/dL Hemoglobin A1c (4.0-6.0) % Plasma Lactic Acid Jonathan (0.7-2.0) mmol/L Phosphorus (2.5-4.5) mg/dL Magnesium (1.6-2.3) mg/dL 08/12/17 08/12/17 08/12/17 Range/Units 08:10 09:01 09:59 WBC (3.8-10.6) k/uL Neutrophils # (1.3-7.7) k/uL Monocytes # (0-1.0) k/uL APTT (22.0-30.0) sec ABG HCO3 (21-25) mmol/L ABG Total CO2 (19-24) mmol/L ABG O2 Saturation (94-97) % BUN (7-17) mg/dL Glucose (74-99) mg/dL POC Glucose (mg/dL) 149 H 136 H 173 H (75-99) mg/dL Hemoglobin A1c (4.0-6.0) % Plasma Lactic Acid Jonathan (0.7-2.0) mmol/L Phosphorus (2.5-4.5) mg/dL Magnesium (1.6-2.3) mg/dL 08/12/17 08/12/17 08/12/17 Range/Units 11:30 12:46 13:08 WBC (3.8-10.6) k/uL Neutrophils # (1.3-7.7) k/uL Monocytes # (0-1.0) k/uL APTT (22.0-30.0) sec ABG HCO3 (21-25) mmol/L ABG Total CO2 (19-24) mmol/L ABG O2 Saturation (94-97) % BUN (7-17) mg/dL Glucose (74-99) mg/dL POC Glucose (mg/dL) 175 H 185 H 173 H (75-99) mg/dL Hemoglobin A1c (4.0-6.0) % Plasma Lactic Acid Jonathan (0.7-2.0) mmol/L Phosphorus (2.5-4.5) mg/dL Magnesium (1.6-2.3) mg/dL 08/12/17 Range/Units 13:30 WBC (3.8-10.6) k/uL Neutrophils # (1.3-7.7) k/uL Monocytes # (0-1.0) k/uL APTT 69.4 H (22.0-30.0) sec ABG HCO3 (21-25) mmol/L ABG Total CO2 (19-24) mmol/L ABG O2 Saturation (94-97) % BUN (7-17) mg/dL Glucose (74-99) mg/dL POC Glucose (mg/dL) (75-99) mg/dL Hemoglobin A1c (4.0-6.0) % Plasma Lactic Acid Jonathan (0.7-2.0) mmol/L Phosphorus (2.5-4.5) mg/dL Magnesium (1.6-2.3) mg/dL Assessment and Plan Plan: #1 acute hypoxic respiratory failure, requiring intubation and mechanical ventilation, vent setting adjusted by Dr. Echeverria #2 atrial fibrillation with rapid ventricular response heart rate is improving currently maintained on amiodarone drip and Cardizem drip #3 acute congestive heart failure exacerbation with evidence of pulmonary edema. Cardiology consultation requested echocardiogram requested the results are still pending #4 Bibasilar infiltrate, rule out pneumonia patient was started on IV Rocephin and IV Zithromax awaiting further evaluation. #5 elevated d-dimer at 6.82 patient is maintained on IV heparin, will have further evaluation for pulmonary embolism once her condition has improved, she will need to be on anticoagulation for atrial fibrillation regardless of testing results for pulmonary embolism. #6 underlying history of hypertension #7 underlying history of diabetes mellitus #8 underlying history of anxiety disorder Condition is critical and prognosis is guarded family at bedside and aware of patient's condition and prognosis Will follow closely
[2017-08-12 14:29] LABS: Glucose,Whole Blood 194 mg/dL (75-99)
[2017-08-12 15:06] LABS: Glucose,Whole Blood 178 mg/dL (75-99)
[2017-08-12 16:02] LABS: Glucose,Whole Blood 222 mg/dL (75-99)
[2017-08-12 17:17] LABS: Glucose,Whole Blood 227 mg/dL (75-99)
[2017-08-12 18:30] LABS: Glucose,Whole Blood 195 mg/dL (75-99)
[2017-08-12 18:58] LABS: Glucose,Whole Blood 180 mg/dL (75-99)
[2017-08-12 20:05] LABS: Glucose,Whole Blood 186 mg/dL (75-99)
[2017-08-12 21:07] LABS: Glucose,Whole Blood 197 mg/dL (75-99)
[2017-08-12 22:23] LABS: Glucose,Whole Blood 191 mg/dL (75-99)
[2017-08-12 23:14] LABS: Glucose,Whole Blood 190 mg/dL (75-99)
[2017-08-12 23:50] LABS: Glucose,Whole Blood 171 mg/dL (75-99)
[2017-08-13 00:40] LABS: Glucose,Whole Blood 167 mg/dL (75-99)
[2017-08-13 00:53] LABS: Glucose,Whole Blood 176 mg/dL (75-99)
[2017-08-13 02:04] LABS: Glucose,Whole Blood 164 mg/dL (75-99)
[2017-08-13 03:08] LABS: Glucose,Whole Blood 158 mg/dL (75-99)
[2017-08-13] MEDS: PROPOFOL 1,000 MG in EMPTY BAG 1 BAG IV SCH ×6 (03:09→21:44)
[2017-08-13] MEDS: NOREPINEPHRIN 4 MG-0.9% NS PMX 4 MG/250 ML ML IV SCH ×5 (03:10→21:45)
[2017-08-13 04:36] LABS: ABG Base Excess 1.2 mmol/L; ABG HCO3 26 mmol/L (21-25); ABG Oxygen Saturation 97.7 % (94-97); ABG PCO2 41 mmHg (35-45); ABG PH 7.41 (7.35-7.45); ABG PO2 87 mmHg (83-108); ABG TCO2 27 mmol/L (19-24)
[2017-08-13] MEDS: HEPARIN SOD,PORK IN 0.45% NACL 25,000 UNIT in 0.45% NACL 1 500ML.BAG IV SCH ×2 (04:40→11:03)
[2017-08-13] MEDS: DILTIAZEM 50 MG in SODIUM CHLORIDE 0.9% 40 ML IV SCH ×5 (04:40→21:45)
[2017-08-13 05:18] LABS: Glucose,Whole Blood 171 mg/dL (75-99)
[2017-08-13 05:43] LABS: Basophils % (A) 0 %; Eosinophils # (A) 0.2 k/uL (0-0.7); Eosinophils % (A) 1 %; HCT 35.6 % (34.0-46.0); HGB 11.5 gm/dL (11.4-16.0); Lymphocytes # (A) 1.3 k/uL (1.0-4.8); Lymphocytes % (A) 11 %; MCH 30.1 pg (25.0-35.0); MCHC 32.3 g/dL (31.0-37.0); MCV 93.3 fL (80.0-100.0); Mean Platelet Volume 7.1; Monocytes % (A) 8 %; Neutrophils # (A) 9.5 k/uL (1.3-7.7); Neutrophils % (A) 78 %; Platelet Count 183 k/uL (150-450); RBC 3.82 m/uL (3.80-5.40); RDW 13.6 % (11.5-15.5); WBC 12.2 k/uL (3.8-10.6)
[2017-08-13 06:12] LABS: Glucose,Whole Blood 175 mg/dL (75-99)
[2017-08-13 06:19] LABS: Calcium 8.1 mg/dL (8.4-10.2); Magnesium 2.4 mg/dL (1.6-2.3); Phosphorus 2.8 mg/dL (2.5-4.5)
[2017-08-13 08:01] LABS: Glucose,Whole Blood 164 mg/dL (75-99)
--- NOTE | 2017-08-13 08:04 | XR ---
EXAMINATION TYPE: XR chest 1V portable DATE OF EXAM: 08/13/2017 COMPARISON: 08/12/2017 HISTORY: SOB, Follow Up FINDINGS: Indwelling tubes and catheters are unchanged. No change in bibasilar opacities. Stable appearance of the cardio-mediastinal structures at this time. Pleural effusion unchanged. IMPRESSION: 1. Stable portable chest. Clinical correlation and follow up until resolution is recommended.
[2017-08-13] MEDS ORDERED: HYDROCORTISONE SUCCINATE 100 MG/2 ML VIAL IV STA (08:11)
[2017-08-13] MEDS: cefTRIAXone IN SWFI 1,000 MG/10 ML SYRINGE IVP SCH (08:33)
[2017-08-13] MEDS: CHLORHEXIDINE GLUCONATE 15 ML CUP MUCOUS MEM SCH ×2 (08:34→20:22)
[2017-08-13] MEDS: AMIODARONE 200 MG TAB PO SCH ×2 (08:34→20:21)
[2017-08-13] MEDS: AZITHROMYCIN 500 MG in SODIUM CHLORIDE 0.9% 250 ML IVPB SCH (08:34)
[2017-08-13] MEDS: ASPIRIN 325 MG TAB PO SCH (08:34)
[2017-08-13] MEDS: DIGOXIN 125 MCG TAB PO SCH (08:34)
[2017-08-13] MEDS: FUROSEMIDE 10 MG/ML 4 ML VIAL IV SCH (08:34)
[2017-08-13] MEDS: ATORVASTATIN 80 MG TAB PO SCH (08:34)
[2017-08-13] MEDS: PANTOPRAZOLE 40 MG/10 ML VIAL IVP SCH (08:35)
[2017-08-13] MEDS: POTASSIUM CHLORIDE ER 10 MEQ TAB.ER.PRT PO SCH (08:35)
--- NOTE | 2017-08-13 08:52 | P.PN ---
Subjective Progress Note Date: 08/13/17 Principal diagnosis: Respiratory failure Progress note dated 08/12/2017 This is an 87-year-old female seen by my partner yesterday with acute hypoxemic respiratory failure, requiring intubation and mechanical ventilation. Respiratory failure was thought related to acute congestive heart failure with secondary atrial fibrillation and RVR. There may also be systolic dysfunction as well. The patient also has a possibility of a pneumonia although it was felt to be less likely. In addition, the patient has a history of benign essential hypertension type 2 diabetes and chronic anxiety disorder. The patient was also thought to have possibly have had a pulmonary embolism because of an elevated d-dimer. The patient's currently already on heparin for his her atrial fibrillation. I will get Dopplers of the lower extremities but no need to proceed with CT angiogram at this time. Currently, the patient is on the mechanical ventilator. The mechanical ventilator settings include the assist control mode rate of 14 tidal volume 400 FiO2 40% and a PEEP of 5. Arterial blood gases show a PaO2 of 90 a PaCO2 of 39 and a pH of 7.43. We will increase the rate up to 24 and decreased the tidal volume from 400 to 350. Currently, the patient's on a saline IV at 10 mL an hour heparin infusion via weightbase protocol norepinephrine at 22 mics per minute, Cardizem drip at 15 mg an hour, insulin drip at 1.5 units per hour propofol 45 mics per kilogram per minute and vital high protein at 35 with a goal of 50 mL per hour. The patient will definitely have a daily interuption of sedation today a random cortisol level and Dopplers of the lower extremities. Progress note dated 08/13/2017 This is an 87-year-old female seen by my partner over the weekend. She came with acute hypoxemic respiratory failure which required intubation and mechanical ventilation. Her respiratory failure was thought be related to underlying acute congestive heart failure was secondary atrial fibrillation and RVR. The patient may also have some systolic dysfunction as well. Pneumonia was thought to be possibility but seems less likely. The patient does have a history of benign essential hypertension, type 2 diabetes and chronic anxiety disorder. Dopplers of the lower extremities were negative. 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 I did alert the girls today to talk to the family about CODE STATUS. In addition, her cortisol level was only 20 she did not respond to 100 mg of hydrocortisone IV push. Hence, relative adrenal insufficiency seems unlikely. The patient is on the assist control mode rate of 24 tidal volume 350 FiO2 of 40% and PEEP of 5. Arterial blood gases show a PaO2 of 87 paCO2 of 41 and a pH of 7.41. Currently , she is on Cardizem drip at 15 mg an hour, heparin via weightbase protocol norepinephrine is 16 mics per minute propofol at 50 mics per kilogram per minute insulin at 5 units an hour and a saline IV at 10 mL an hour. She's also getting vital AF at 47 with a goal of 47 mL per hour. Today's chest x-ray shows evidence of fluid overload with bilateral effusions and fluid in the minor fissure. She also has cardiomegaly. She did not to do well today on her daily interruption of sedation. Not yet ready to wean. Objective - Vital Signs Vital signs: Vital Signs Temp 98.8 F 08/13/17 04:00 Pulse 103 H 08/13/17 07:00 Resp 24 08/13/17 07:00 BP 79/59 08/11/17 03:00 Pulse Ox 98 08/13/17 07:00 Intake & Output 08/12/17 08/13/17 08/13/17 18:59 06:59 18:59 Intake Total 8477.353 0317.250 243.75 Output Total 1160 382 25 Balance 848.383 1366.250 218.75 Weight 94 kg Intake: IV 140 120 10 0.9 KVO Carrier 110 120 10 Diltiazem 50 mg In Sodium 30 Chloride 0.9% 40 ml @ 10 MG/HR 10 mls/hr IV .Q5H [facility] Rx#:[id number] Intake, IV Titration 1100.421 519.250 186.75 Amount Diltiazem 50 mg In Sodium 97.833 145.5 50 Chloride 0.9% 40 ml @ 10 MG/HR 10 mls/hr IV .Q5H [facility] Rx#:[id number] Heparin Sod,Pork in 0.45% 500 NaCl 25,000 unit In 0.45 % NaCl 1 500ml.bag @ 18 UNITS/KG/HR 31.84 mls/hr IV .[id number] [facility] Rx#: [id number] Insulin Regular 100 unit 58.988 21.625 In Sodium Chloride 0.9% 100 ml @ Per Protocol IV .Q0M [facility] Rx#:[id number] Norepinephrin 4 mg-0.9% 250 352.125 36.75 Ns Pmx 4 mg In 250 ml @ Titrate IV .Q0M [facility] Rx#: [id number] Propofol 1,000 mg In 193.600 100 Empty Bag 1 bag @ Titrate IV .Q0M [facility] Rx#: [id number] Tube Feeding 60 698 47 Other 150 Output: Urine 1160 382 25 Other: Voiding Method Indwelling Catheter Indwelling Catheter ABP, PAP, CO, CI - Last Documented Arterial Blood Pressure 103/37 - Exam No acute distress, she is sedated, with an orally placed endotracheal tube and NG tube. HEENT examination is grossly unremarkable. Mucous membranes are moist. Neck supple. Full range of motion. No adenopathy thyromegaly or neck vein distention. Cardiovascular examination reveals regular rhythm rate. S1-S2 normal. No S3 or S4. No discernible murmur noted. Lungs reveal diffuse coarse rhonchi. A few scattered crackles are noted. Breath sounds are diminished throughout but equal bilaterally. Abdomen soft bowel sounds are heard. No masses or tenderness. Extremities are intact. No cyanosis clubbing or edema. Skin is without rash or lesion. Neurologic examination is very difficult to assess. - Labs CBC & Chem 7: 08/13/17 05:26 08/13/17 05:26 Labs: Abnormal Lab Results - Last 24 Hours (Table) 08/12/17 08/12/17 08/12/17 Range/Units 09:01 09:59 11:30 WBC (3.8-10.6) k/uL Neutrophils # (1.3-7.7) k/uL APTT (22.0-30.0) sec ABG HCO3 (21-25) mmol/L ABG Total CO2 (19-24) mmol/L ABG O2 Saturation (94-97) % Chloride (98-107) mmol/L BUN (7-17) mg/dL Glucose (74-99) mg/dL POC Glucose (mg/dL) 136 H 173 H 175 H (75-99) mg/dL Calcium (8.4-10.2) mg/dL Magnesium (1.6-2.3) mg/dL 08/12/17 08/12/17 08/12/17 Range/Units 12:46 13:08 13:30 WBC (3.8-10.6) k/uL Neutrophils # (1.3-7.7) k/uL APTT 69.4 H (22.0-30.0) sec ABG HCO3 (21-25) mmol/L ABG Total CO2 (19-24) mmol/L ABG O2 Saturation (94-97) % Chloride (98-107) mmol/L BUN (7-17) mg/dL Glucose (74-99) mg/dL POC Glucose (mg/dL) 185 H 173 H (75-99) mg/dL Calcium (8.4-10.2) mg/dL Magnesium (1.6-2.3) mg/dL 08/12/17 08/12/17 08/12/17 Range/Units 14:11 15:04 16:01 WBC (3.8-10.6) k/uL Neutrophils # (1.3-7.7) k/uL APTT (22.0-30.0) sec ABG HCO3 (21-25) mmol/L ABG Total CO2 (19-24) mmol/L ABG O2 Saturation (94-97) % Chloride (98-107) mmol/L BUN (7-17) mg/dL Glucose (74-99) mg/dL POC Glucose (mg/dL) 194 H 178 H 222 H (75-99) mg/dL Calcium (8.4-10.2) mg/dL Magnesium (1.6-2.3) mg/dL 08/12/17 08/12/17 08/12/17 Range/Units 17:15 18:28 18:57 WBC (3.8-10.6) k/uL Neutrophils # (1.3-7.7) k/uL APTT (22.0-30.0) sec ABG HCO3 (21-25) mmol/L ABG Total CO2 (19-24) mmol/L ABG O2 Saturation (94-97) % Chloride (98-107) mmol/L BUN (7-17) mg/dL Glucose (74-99) mg/dL POC Glucose (mg/dL) 227 H 195 H 180 H (75-99) mg/dL Calcium (8.4-10.2) mg/dL Magnesium (1.6-2.3) mg/dL 08/12/17 08/12/17 08/12/17 Range/Units 20:04 21:06 22:21 WBC (3.8-10.6) k/uL Neutrophils # (1.3-7.7) k/uL APTT (22.0-30.0) sec ABG HCO3 (21-25) mmol/L ABG Total CO2 (19-24) mmol/L ABG O2 Saturation (94-97) % Chloride (98-107) mmol/L BUN (7-17) mg/dL Glucose (74-99) mg/dL POC Glucose (mg/dL) 186 H 197 H 191 H (75-99) mg/dL Calcium (8.4-10.2) mg/dL Magnesium (1.6-2.3) mg/dL 08/12/17 08/12/17 08/13/17 Range/Units 23:12 23:48 00:39 WBC (3.8-10.6) k/uL Neutrophils # (1.3-7.7) k/uL APTT (22.0-30.0) sec ABG HCO3 (21-25) mmol/L ABG Total CO2 (19-24) mmol/L ABG O2 Saturation (94-97) % Chloride (98-107) mmol/L BUN (7-17) mg/dL Glucose (74-99) mg/dL POC Glucose (mg/dL) 190 H 171 H 167 H (75-99) mg/dL Calcium (8.4-10.2) mg/dL Magnesium (1.6-2.3) mg/dL 08/13/17 08/13/17 08/13/17 Range/Units 00:51 02:03 03:06 WBC (3.8-10.6) k/uL Neutrophils # (1.3-7.7) k/uL APTT (22.0-30.0) sec ABG HCO3 (21-25) mmol/L ABG Total CO2 (19-24) mmol/L ABG O2 Saturation (94-97) % Chloride (98-107) mmol/L BUN (7-17) mg/dL Glucose (74-99) mg/dL POC Glucose (mg/dL) 176 H 164 H 158 H (75-99) mg/dL Calcium (8.4-10.2) mg/dL Magnesium (1.6-2.3) mg/dL 08/13/17 08/13/17 08/13/17 Range/Units 04:31 05:16 05:26 WBC 12.2 H (3.8-10.6) k/uL Neutrophils # 9.5 H (1.3-7.7) k/uL APTT (22.0-30.0) sec ABG HCO3 26 H (21-25) mmol/L ABG Total CO2 27 H (19-24) mmol/L ABG O2 Saturation 97.7 H (94-97) % Chloride (98-107) mmol/L BUN (7-17) mg/dL Glucose (74-99) mg/dL POC Glucose (mg/dL) 171 H (75-99) mg/dL Calcium (8.4-10.2) mg/dL Magnesium (1.6-2.3) mg/dL 08/13/17 08/13/17 08/13/17 Range/Units 05:26 06:00 06:11 WBC (3.8-10.6) k/uL Neutrophils # (1.3-7.7) k/uL APTT 57.2 H (22.0-30.0) sec ABG HCO3 (21-25) mmol/L ABG Total CO2 (19-24) mmol/L ABG O2 Saturation (94-97) % Chloride 109 H (98-107) mmol/L BUN 20 H (7-17) mg/dL Glucose 175 H (74-99) mg/dL POC Glucose (mg/dL) 175 H (75-99) mg/dL Calcium 8.1 L (8.4-10.2) mg/dL Magnesium 2.4 H (1.6-2.3) mg/dL 08/13/17 Range/Units 07:59 WBC (3.8-10.6) k/uL Neutrophils # (1.3-7.7) k/uL APTT (22.0-30.0) sec ABG HCO3 (21-25) mmol/L ABG Total CO2 (19-24) mmol/L ABG O2 Saturation (94-97) % Chloride (98-107) mmol/L BUN (7-17) mg/dL Glucose (74-99) mg/dL POC Glucose (mg/dL) 164 H (75-99) mg/dL Calcium (8.4-10.2) mg/dL Magnesium (1.6-2.3) mg/dL Microbiology - Last 24 Hours (Table) 08/12/17 13:43 Gram Stain - Preliminary Sputum Sputum Culture - Preliminary 08/12/17 13:43 Urine Culture - Preliminary Urine,Catheterized Assessment and Plan Assessment: Acute hypoxemic respiratory failure requiring intubation and mechanical ventilation, likely secondary to acute congestive heart failure as well as atrial fibrillation and RVR and possible underlying systolic dysfunction, and/ or possible pneumonia. Acute congestive heart failure Atrial fibrillation with RVR Possible underlying pneumonia Benign essential hypertension Type 2 diabetes History of anxiety disorder Plan: Plan dated 08/12/2017 The patient today will have a DIS, a random cortisol level and Dopplers of the lower extremities. She is not likely to be weaned today as she still receiving quite a bit of medication. We did make some vent changes increasing the rate from 14 up to 24 and decreasing the tidal volume from 400 down to 350. X-rays labs and medications are all reviewed. We'll continue to wean the norepinephrine. No additional recommendations are made. Prognosis is guarded. Critical care time is 37 minutes. Plan dated 08/13/2017 The patient did not respond to 100 mg of hydrocortisone IV push. The blood pressure did not improve. The patient's vent settings are appropriate. She still remains on lots of medications Coumadin Cardizem and heparin norepinephrine propofol insulin and saline IV. She is getting nourishment. Labs x-rays a medications are reviewed. Chest x-ray is consistent with fluid overload. We'll continue to follow. Prognosis is not good. We'll have a nurse talk with the family today about CODE STATUS. Critical care time 36 minutes Time with Patient: Greater than 30
--- NOTE | 2017-08-13 09:54 | P.PN ---
Subjective Progress Note Date: 08/13/17 Principal diagnosis: Acute respiratory failure This is a pleasant 87-year-old female patient with a past medical history significant for severe cardiomyopathy based on an echocardiogram was performed in 2014, chronic atrial fibrillation, hypertension, dyslipidemia, presented to the emergency room complaining of shortness of breath. Currently the patient is intubated and she is on ventilatory. The history was taken from the chart as well as from her son who was bit side. The shortness of breath started about 3 days ago and has gotten worse since. She did not have any symptoms of chest pain or chest discomfort. When she presented to the emergency room, she was in mild respiratory distress and she was in A. fib with RVR. Initially the patient was admitted to the selective floor and she was started on Cardizem drip but apparently the shortness of breath get worse and the patient developed acute respiratory failure required intubation and mechanical ventilation. Beside that she was hypotensive requiring vasopressors was Levophed. The chest x-ray showed findings consistent with CHF. The cardiac enzymes are slightly abnormal. On follow-up with the patient today on 08/13/2017, she continues to be hemodynamically unstable and she continues to be on Levophed. Beside that she is on Cardizem as well as she is on amiodarone. She continues to be in atrial fibrillation with heart rate around 110 beats per minutes. She continues to be in acute respiratory failure and requiring 40% FiO2. I am going to repeat the BMP. The chest x-ray today showed right pleural effusion. Hopefully by tomorrow was able to stop the Lasix and try to decrease the dose of Levophed on her. Objective - Vital Signs Vital signs: Vital Signs Temp 98.8 F 08/13/17 04:00 Pulse 103 H 08/13/17 07:00 Resp 24 08/13/17 07:00 BP 79/59 08/11/17 03:00 Pulse Ox 98 08/13/17 07:00 Intake & Output 08/12/17 08/13/17 08/13/17 18:59 06:59 18:59 Intake Total 8725.197 4851.250 413.75 Output Total 1160 382 25 Balance 152.619 0999.250 388.75 Weight 94 kg Intake: IV 140 120 10 0.9 KVO Carrier 110 120 10 Diltiazem 50 mg In Sodium 30 Chloride 0.9% 40 ml @ 10 MG/HR 10 mls/hr IV .Q5H [facility] Rx#:[id number] Intake, IV Titration 1100.421 519.250 356.75 Amount Diltiazem 50 mg In Sodium 97.833 145.5 50 Chloride 0.9% 40 ml @ 10 MG/HR 10 mls/hr IV .Q5H [facility] Rx#:[id number] Heparin Sod,Pork in 0.45% 500 NaCl 25,000 unit In 0.45 % NaCl 1 500ml.bag @ 18 UNITS/KG/HR 31.84 mls/hr IV .[id number] [facility] Rx#: [id number] Insulin Regular 100 unit 58.988 21.625 In Sodium Chloride 0.9% 100 ml @ Per Protocol IV .Q0M [facility] Rx#:[id number] Norepinephrin 4 mg-0.9% 250 352.125 206.75 Ns Pmx 4 mg In 250 ml @ Titrate IV .Q0M [facility] Rx#: [id number] Propofol 1,000 mg In 193.600 100 Empty Bag 1 bag @ Titrate IV .Q0M [facility] Rx#: [id number] Tube Feeding 60 698 47 Other 150 Output: Urine 1160 382 25 Other: Voiding Method Indwelling Catheter Indwelling Catheter ABP, PAP, CO, CI - Last Documented Arterial Blood Pressure 103/37 - Constitutional General appearance: Present: no acute distress - Respiratory Respiratory: bilateral: diminished - Cardiovascular Rhythm: irregularly irregular Heart sounds: normal: S1, S2 - Labs CBC & Chem 7: 08/13/17 05:26 08/13/17 05:26 Labs: Abnormal Lab Results - Last 24 Hours (Table) 08/12/17 08/12/17 08/12/17 Range/Units 09:59 11:30 12:46 WBC (3.8-10.6) k/uL Neutrophils # (1.3-7.7) k/uL APTT (22.0-30.0) sec ABG HCO3 (21-25) mmol/L ABG Total CO2 (19-24) mmol/L ABG O2 Saturation (94-97) % Chloride (98-107) mmol/L BUN (7-17) mg/dL Glucose (74-99) mg/dL POC Glucose (mg/dL) 173 H 175 H 185 H (75-99) mg/dL Calcium (8.4-10.2) mg/dL Magnesium (1.6-2.3) mg/dL 08/12/17 08/12/17 08/12/17 Range/Units 13:08 13:30 14:11 WBC (3.8-10.6) k/uL Neutrophils # (1.3-7.7) k/uL APTT 69.4 H (22.0-30.0) sec ABG HCO3 (21-25) mmol/L ABG Total CO2 (19-24) mmol/L ABG O2 Saturation (94-97) % Chloride (98-107) mmol/L BUN (7-17) mg/dL Glucose (74-99) mg/dL POC Glucose (mg/dL) 173 H 194 H (75-99) mg/dL Calcium (8.4-10.2) mg/dL Magnesium (1.6-2.3) mg/dL 08/12/17 08/12/17 08/12/17 Range/Units 15:04 16:01 17:15 WBC (3.8-10.6) k/uL Neutrophils # (1.3-7.7) k/uL APTT (22.0-30.0) sec ABG HCO3 (21-25) mmol/L ABG Total CO2 (19-24) mmol/L ABG O2 Saturation (94-97) % Chloride (98-107) mmol/L BUN (7-17) mg/dL Glucose (74-99) mg/dL POC Glucose (mg/dL) 178 H 222 H 227 H (75-99) mg/dL Calcium (8.4-10.2) mg/dL Magnesium (1.6-2.3) mg/dL 08/12/17 08/12/17 08/12/17 Range/Units 18:28 18:57 20:04 WBC (3.8-10.6) k/uL Neutrophils # (1.3-7.7) k/uL APTT (22.0-30.0) sec ABG HCO3 (21-25) mmol/L ABG Total CO2 (19-24) mmol/L ABG O2 Saturation (94-97) % Chloride (98-107) mmol/L BUN (7-17) mg/dL Glucose (74-99) mg/dL POC Glucose (mg/dL) 195 H 180 H 186 H (75-99) mg/dL Calcium (8.4-10.2) mg/dL Magnesium (1.6-2.3) mg/dL 08/12/17 08/12/17 08/12/17 Range/Units 21:06 22:21 23:12 WBC (3.8-10.6) k/uL Neutrophils # (1.3-7.7) k/uL APTT (22.0-30.0) sec ABG HCO3 (21-25) mmol/L ABG Total CO2 (19-24) mmol/L ABG O2 Saturation (94-97) % Chloride (98-107) mmol/L BUN (7-17) mg/dL Glucose (74-99) mg/dL POC Glucose (mg/dL) 197 H 191 H 190 H (75-99) mg/dL Calcium (8.4-10.2) mg/dL Magnesium (1.6-2.3) mg/dL 08/12/17 08/13/17 08/13/17 Range/Units 23:48 00:39 00:51 WBC (3.8-10.6) k/uL Neutrophils # (1.3-7.7) k/uL APTT (22.0-30.0) sec ABG HCO3 (21-25) mmol/L ABG Total CO2 (19-24) mmol/L ABG O2 Saturation (94-97) % Chloride (98-107) mmol/L BUN (7-17) mg/dL Glucose (74-99) mg/dL POC Glucose (mg/dL) 171 H 167 H 176 H (75-99) mg/dL Calcium (8.4-10.2) mg/dL Magnesium (1.6-2.3) mg/dL 08/13/17 08/13/17 08/13/17 Range/Units 02:03 03:06 04:31 WBC (3.8-10.6) k/uL Neutrophils # (1.3-7.7) k/uL APTT (22.0-30.0) sec ABG HCO3 26 H (21-25) mmol/L ABG Total CO2 27 H (19-24) mmol/L ABG O2 Saturation 97.7 H (94-97) % Chloride (98-107) mmol/L BUN (7-17) mg/dL Glucose (74-99) mg/dL POC Glucose (mg/dL) 164 H 158 H (75-99) mg/dL Calcium (8.4-10.2) mg/dL Magnesium (1.6-2.3) mg/dL 08/13/17 08/13/17 08/13/17 Range/Units 05:16 05:26 05:26 WBC 12.2 H (3.8-10.6) k/uL Neutrophils # 9.5 H (1.3-7.7) k/uL APTT (22.0-30.0) sec ABG HCO3 (21-25) mmol/L ABG Total CO2 (19-24) mmol/L ABG O2 Saturation (94-97) % Chloride 109 H (98-107) mmol/L BUN 20 H (7-17) mg/dL Glucose 175 H (74-99) mg/dL POC Glucose (mg/dL) 171 H (75-99) mg/dL Calcium 8.1 L (8.4-10.2) mg/dL Magnesium 2.4 H (1.6-2.3) mg/dL 08/13/17 08/13/17 08/13/17 Range/Units 06:00 06:11 07:59 WBC (3.8-10.6) k/uL Neutrophils # (1.3-7.7) k/uL APTT 57.2 H (22.0-30.0) sec ABG HCO3 (21-25) mmol/L ABG Total CO2 (19-24) mmol/L ABG O2 Saturation (94-97) % Chloride (98-107) mmol/L BUN (7-17) mg/dL Glucose (74-99) mg/dL POC Glucose (mg/dL) 175 H 164 H (75-99) mg/dL Calcium (8.4-10.2) mg/dL Magnesium (1.6-2.3) mg/dL Microbiology - Last 24 Hours (Table) 08/12/17 13:43 Gram Stain - Preliminary Sputum Sputum Culture - Preliminary 08/12/17 13:43 Urine Culture - Preliminary Urine,Catheterized Assessment and Plan Assessment: Assessment #1 acute hypoxic respiratory failure #2 congestive heart failure exacerbation secondary to systolic dysfunction #3 atrial fibrillation with a rapid ventricular response #4 infiltrate on the chest x-ray likely related to pneumonia #5 shock likely to be septic #6 abnormal d-dimer #7 known severe cardiomyopathy Plan #1 try to wean the patient from the vasopressin at this point of time Number to repeat the BNP #3 continue the IV heparin for anticoagulation. #4 follow-up with the patient. Thank you for allowing us participate in her care and we'll continue following up with the patient.
[2017-08-13 10:29] LABS: Glucose,Whole Blood 202 mg/dL (75-99)
[2017-08-13] MEDS: INSULIN REGULAR 100 UNIT in SODIUM CHLORIDE 0.9% 100 ML IV SCH (10:30)
[2017-08-13 11:14] LABS: Glucose,Whole Blood 173 mg/dL (75-99)
[2017-08-13 12:59] LABS: Glucose,Whole Blood 173 mg/dL (75-99)
--- NOTE | 2017-08-13 13:09 | P.PN ---
Subjective Progress Note Date: 08/13/17 Yomaira Mcdonnell is an 87-year-old female well known to my practice who presented to [facility] emergency room with a chief complaint of worsening shortness of breath. She was evaluated in emergency room and was found to have atrial fibrillation with rapid ventricular response and evidence of acute exacerbation of congestive heart failure was pulmonary edema she was started on IV Cardizem drip and IV Lasix and was admitted to telemetry floor, cardiology consultation was requested. While on the telemetry floor patient continued to have rapid ventricular response with heart rate up to 140 bpm, Cardizem drip was increased from 5 mg/h to 10 mg/h, patient continued to have worsening shortness of breath through the night. Around 3 AM patient was having severe shortness of breath and evidence of oxygen desaturation, she was transferred to intensive care unit she was intubated and started on mechanical ventilation. consultation for Dr. Mark pulmonary critical care was initiated. Patient was seen on 08/11/2017 in intensive care unit she is intubated sedated maintained on mechanical ventilation she is requiring pressure support with IV levo fed, she is also on amiodarone drip, Cardizem drip, insulin drip, and IV heparin drip. Chest x-ray is revealing evidence of pulmonary edema, and by basilar infiltrates, patient is maintained on IV Lasix, she is also receiving IV Zithromax and IV Rocephin. EKG revealed atrial fibrillation was rapid ventricular response was a heart rate of 149, also revealed left bundle branch block, troponin level was slightly elevated at 0.087. On 08/12/2017 patient remains intubated sedated maintained on mechanical ventilation, vent setting is assist control rate of 24 tidal volume 350 FiO2 of 40% and PEEP of 5 patient still requiring norepinephrine drip, Cardizem drip, insulin drip, she also has an NG tube and is receiving protein supplement. Her 2 daughters are at bedside, and are aware of condition. 08/13/2017 patient remains intubated. Did not tolerate sedation holiday. She is currently in restarted on sedation. She still requiring vasopressor and Cardizem drip. Patient remains in atrial fibrillation heart rate in the 100s. Objective - Vital Signs Vital signs: Vital Signs Temp 98.1 F 08/13/17 12:00 Pulse 110 H 08/13/17 12:00 Resp 24 08/13/17 12:00 BP 79/59 08/11/17 03:00 Pulse Ox 96 08/13/17 12:00 Intake & Output 08/12/17 08/13/17 08/13/17 18:59 06:59 18:59 Intake Total 6523.641 4227.250 1270.946 Output Total 1160 382 735 Balance 049.699 5132.250 535.946 Weight 94 kg Intake: IV 140 120 300 0.9 KVO Carrier 110 120 50 Azithromycin 500 mg In 250 Sodium Chloride 0.9% 250 ml @ 125 mls/hr IVPB DAILY [facility] Rx#:[id number] Diltiazem 50 mg In Sodium 30 Chloride 0.9% 40 ml @ 10 MG/HR 10 mls/hr IV .Q5H [facility] Rx#:[id number] Intake, IV Titration 1100.421 519.250 685.946 Amount Diltiazem 50 mg In Sodium 97.833 145.5 97 Chloride 0.9% 40 ml @ 10 MG/HR 10 mls/hr IV .Q5H [facility] Rx#:[id number] Heparin Sod,Pork in 0.45% 500 169.35 NaCl 25,000 unit In 0.45 % NaCl 1 500ml.bag @ 18 UNITS/KG/HR 31.84 mls/hr IV .H24Q48M [facility] Rx#: [id number] Insulin Regular 100 unit 58.988 21.625 50.313 In Sodium Chloride 0.9% 100 ml @ Per Protocol IV .Q0M [facility] Rx#:[id number] Norepinephrin 4 mg-0.9% 250 352.125 206.75 Ns Pmx 4 mg In 250 ml @ Titrate IV .Q0M [facility] Rx#: [id number] Propofol 1,000 mg In 193.600 162.533 Empty Bag 1 bag @ Titrate IV .Q0M [facility] Rx#: [id number] Tube Feeding 60 698 235 Other 150 50 Output: Urine 1160 382 735 Other: Voiding Method Indwelling Catheter Indwelling Catheter Indwelling Catheter ABP, PAP, CO, CI - Last Documented Arterial Blood Pressure 110/45 - Exam Head normocephalic Neck supple Lungs clear to auscultation bilaterally no wheezing or crackles Heart irregular. A. fib on monitor Abdomen is soft nontender nondistended positive bowel sounds no hepatosplenomegaly Extremities no edema Neuro intubated and sedated - Labs CBC & Chem 7: 08/13/17 05:26 08/13/17 05:26 Labs: Abnormal Lab Results - Last 24 Hours (Table) 08/12/17 08/12/17 08/12/17 Range/Units 13:08 13:30 14:11 WBC (3.8-10.6) k/uL Neutrophils # (1.3-7.7) k/uL APTT 69.4 H (22.0-30.0) sec ABG HCO3 (21-25) mmol/L ABG Total CO2 (19-24) mmol/L ABG O2 Saturation (94-97) % Chloride (98-107) mmol/L BUN (7-17) mg/dL Glucose (74-99) mg/dL POC Glucose (mg/dL) 173 H 194 H (75-99) mg/dL Calcium (8.4-10.2) mg/dL Magnesium (1.6-2.3) mg/dL 08/12/17 08/12/17 08/12/17 Range/Units 15:04 16:01 17:15 WBC (3.8-10.6) k/uL Neutrophils # (1.3-7.7) k/uL APTT (22.0-30.0) sec ABG HCO3 (21-25) mmol/L ABG Total CO2 (19-24) mmol/L ABG O2 Saturation (94-97) % Chloride (98-107) mmol/L BUN (7-17) mg/dL Glucose (74-99) mg/dL POC Glucose (mg/dL) 178 H 222 H 227 H (75-99) mg/dL Calcium (8.4-10.2) mg/dL Magnesium (1.6-2.3) mg/dL 08/12/17 08/12/17 08/12/17 Range/Units 18:28 18:57 20:04 WBC (3.8-10.6) k/uL Neutrophils # (1.3-7.7) k/uL APTT (22.0-30.0) sec ABG HCO3 (21-25) mmol/L ABG Total CO2 (19-24) mmol/L ABG O2 Saturation (94-97) % Chloride (98-107) mmol/L BUN (7-17) mg/dL Glucose (74-99) mg/dL POC Glucose (mg/dL) 195 H 180 H 186 H (75-99) mg/dL Calcium (8.4-10.2) mg/dL Magnesium (1.6-2.3) mg/dL 08/12/17 08/12/17 08/12/17 Range/Units 21:06 22:21 23:12 WBC (3.8-10.6) k/uL Neutrophils # (1.3-7.7) k/uL APTT (22.0-30.0) sec ABG HCO3 (21-25) mmol/L ABG Total CO2 (19-24) mmol/L ABG O2 Saturation (94-97) % Chloride (98-107) mmol/L BUN (7-17) mg/dL Glucose (74-99) mg/dL POC Glucose (mg/dL) 197 H 191 H 190 H (75-99) mg/dL Calcium (8.4-10.2) mg/dL Magnesium (1.6-2.3) mg/dL 08/12/17 08/13/17 08/13/17 Range/Units 23:48 00:39 00:51 WBC (3.8-10.6) k/uL Neutrophils # (1.3-7.7) k/uL APTT (22.0-30.0) sec ABG HCO3 (21-25) mmol/L ABG Total CO2 (19-24) mmol/L ABG O2 Saturation (94-97) % Chloride (98-107) mmol/L BUN (7-17) mg/dL Glucose (74-99) mg/dL POC Glucose (mg/dL) 171 H 167 H 176 H (75-99) mg/dL Calcium (8.4-10.2) mg/dL Magnesium (1.6-2.3) mg/dL 08/13/17 08/13/17 08/13/17 Range/Units 02:03 03:06 04:31 WBC (3.8-10.6) k/uL Neutrophils # (1.3-7.7) k/uL APTT (22.0-30.0) sec ABG HCO3 26 H (21-25) mmol/L ABG Total CO2 27 H (19-24) mmol/L ABG O2 Saturation 97.7 H (94-97) % Chloride (98-107) mmol/L BUN (7-17) mg/dL Glucose (74-99) mg/dL POC Glucose (mg/dL) 164 H 158 H (75-99) mg/dL Calcium (8.4-10.2) mg/dL Magnesium (1.6-2.3) mg/dL 08/13/17 08/13/17 08/13/17 Range/Units 05:16 05:26 05:26 WBC 12.2 H (3.8-10.6) k/uL Neutrophils # 9.5 H (1.3-7.7) k/uL APTT (22.0-30.0) sec ABG HCO3 (21-25) mmol/L ABG Total CO2 (19-24) mmol/L ABG O2 Saturation (94-97) % Chloride 109 H (98-107) mmol/L BUN 20 H (7-17) mg/dL Glucose 175 H (74-99) mg/dL POC Glucose (mg/dL) 171 H (75-99) mg/dL Calcium 8.1 L (8.4-10.2) mg/dL Magnesium 2.4 H (1.6-2.3) mg/dL 08/13/17 08/13/17 08/13/17 Range/Units 06:00 06:11 07:59 WBC (3.8-10.6) k/uL Neutrophils # (1.3-7.7) k/uL APTT 57.2 H (22.0-30.0) sec ABG HCO3 (21-25) mmol/L ABG Total CO2 (19-24) mmol/L ABG O2 Saturation (94-97) % Chloride (98-107) mmol/L BUN (7-17) mg/dL Glucose (74-99) mg/dL POC Glucose (mg/dL) 175 H 164 H (75-99) mg/dL Calcium (8.4-10.2) mg/dL Magnesium (1.6-2.3) mg/dL 08/13/17 08/13/17 08/13/17 Range/Units 10:27 11:13 12:47 WBC (3.8-10.6) k/uL Neutrophils # (1.3-7.7) k/uL APTT (22.0-30.0) sec ABG HCO3 (21-25) mmol/L ABG Total CO2 (19-24) mmol/L ABG O2 Saturation (94-97) % Chloride (98-107) mmol/L BUN (7-17) mg/dL Glucose (74-99) mg/dL POC Glucose (mg/dL) 202 H 173 H 173 H (75-99) mg/dL Calcium (8.4-10.2) mg/dL Magnesium (1.6-2.3) mg/dL Microbiology - Last 24 Hours (Table) 08/12/17 13:43 Gram Stain - Preliminary Sputum Sputum Culture - Preliminary 08/12/17 13:43 Urine Culture - Preliminary Urine,Catheterized Assessment and Plan Assessment: #1 acute hypoxic respiratory failure secondary to congestive heart failure, atrial fibrillation with RVR and possible pneumonia. Patient is requiring intubation and mechanical ventilation, vent setting adjusted by Dr. Tang #2 atrial fibrillation with rapid ventricular response heart rate is improving currently maintained on amiodarone drip and Cardizem drip #3 acute congestive heart failure exacerbation with evidence of pulmonary edema. Cardiology consultation requested echocardiogram requested the results are still pending #4 Bibasilar infiltrate, rule out pneumonia patient was started on IV Rocephin and IV Zithromax awaiting further evaluation. #5 elevated d-dimer at 6.82 patient is maintained on IV heparin, will have further evaluation for pulmonary embolism once her condition has improved, she will need to be on anticoagulation for atrial fibrillation regardless of testing results for pulmonary embolism. #6 underlying history of hypertension #7 underlying history of diabetes mellitus: Discontinue insulin drip. Restart Levemir 20 units at bedtime with sliding scale coverage every 6 hours #8 underlying history of anxiety disorder Condition is critical and prognosis is guarded Nursing staff will be addressing CODE STATUS with family when power of claims attorney is present I performed an examination of the patient and discussed their management with the physician Museum Curator. I have reviewed the Physician Museum Curator's notes and agree with the documented findings and plan of care
[2017-08-13] MEDS ORDERED: INSULIN ASPART 100 UNIT/ML 1 ML 10 ML VIAL SQ SCH (13:15)
[2017-08-13 15:29] LABS: Glucose,Whole Blood 203 mg/dL (75-99)
--- NOTE | 2017-08-13 17:52 | ECHOF ---
Referral Reason:afib MEASUREMENTS -------- HEIGHT: 165.1 cm WEIGHT: 93.9 kg BP: IVSd: 0.9 cm (0.6 - 1.1) LVIDd: 4.2 cm (3.9 - 5.3) LVPWd: 1.3 cm (0.6 - 1.1) IVSs: 1.5 cm LVIDs: 3.3 cm LVPWs: 2.2 cm LAESV Index (A-L): 31.37 ml/m Ao Diam: 3.0 cm (2.0 - 3.7) LA Diam: 3.4 cm (2.7 - 3.8) AV Cusp: 1.1 cm (1.5 - 2.6) EPSS: 1.1 cm AV maxP.54 mmHg AV meanP.13 mmHg RAP: 5.00 mmHg RVSP: 45.80 mmHg MV EF SLOPE: 53.86 mm/s (70 - 150) MV EXCURSION: 10.54 mm (> 18.000) FINDINGS -------- Atrial fibrillation. This was a technically good study. The left ventricular size is normal. There is borderline concentric left ventricular hypertrophy. There is severe global hypokinesis of LV . Overall left ventricular systolic function is severely impaired with, an EF between 20 - 25 %. The right ventricle is normal in size and function. LA is midly dilated 29-33ml/m2. The right atrium is normal in size. Aortic valve is trileaflet and is severely thickened. There is [id number] aortic stenosis p resent. Peak/mean gradient across the Aortic Valve is 36.54mmHg / 21.13mmHg. The mitral valve leaflets are mildly thickened. Mild mitral annular calcification present. Mild m itral regurgitation is present. Moderate tricuspid regurgitation present. There is mild pulmonary hypertension. The right ventric ular systolic pressure, as measured by Doppler, is 45.80mmHg. Pulmonic valve appears structurally normal. The aortic root size is normal. Normal inferior vena cava with normal inspiratory collapse consistent with estimated right atrial pre ssure of 5 mmHg. There is a small, generalized pericardial effusion present. Large Pleural Effusion. CONCLUSIONS -------- 1. Atrial fibrillation. 2. This was a technically good study. 3. The left ventricular size is normal. 4. There is borderline concentric left ventricular hypertrophy. 5. There is severe global hypokinesis of LV . 6. Overall left ventricular systolic function is severely impaired with, an EF between 20 - 25 %. 7. The right ventricle is normal in size and function. 8. LA is midly dilated 29-33ml/m2. 9. The right atrium is normal in size. 10. Aortic valve is trileaflet and is severely thickened. 11. There is [id number] aortic stenosis present. 12. Peak/mean gradient across the Aortic Valve is 36.54mmHg / 21.13mmHg. 13. The mitral valve leaflets are mildly thickened. 14. Mild mitral annular calcification present. 15. Mild mitral regurgitation is present. 16. Moderate tricuspid regurgitation present. 17. There is mild pulmonary hypertension. 18. The right ventricular systolic pressure, as measured by Doppler, is 45.80mmHg. 19. Pulmonic valve appears structurally normal. 20. The aortic root size is normal. 21. Normal inferior vena cava with normal inspiratory collapse consistent with estimated right atrial pressure of 5 mmHg. 22. There is a small, generalized pericardial effusion present. 23. Large Pleural Effusion. FRUIT AND VEGETABLE INSPECTOR: Thu Shukla RDCS
[2017-08-13 18:03] LABS: Glucose,Whole Blood 250 mg/dL (75-99)
[2017-08-13] MEDS: INSULIN ASPART 100 UNIT/ML 1 ML 10 ML VIAL SQ SCH (19:17)
[2017-08-13] MEDS: INSULIN DETEMIR 100 UNIT/ML 10 ML VIAL SQ SCH (20:22)
[2017-08-14 00:22] LABS: Glucose,Whole Blood 217 mg/dL (75-99)
[2017-08-14] MEDS: INSULIN ASPART 100 UNIT/ML 1 ML 10 ML VIAL SQ SCH ×4 (00:29→18:59)
[2017-08-14] MEDS: PROPOFOL 1,000 MG in EMPTY BAG 1 BAG IV SCH ×6 (01:37→21:20)
[2017-08-14] MEDS: NOREPINEPHRIN 4 MG-0.9% NS PMX 4 MG/250 ML ML IV SCH ×6 (01:37→19:42)
[2017-08-14 04:38] LABS: ABG Base Excess 1.5 mmol/L; ABG HCO3 26 mmol/L (21-25); ABG Oxygen Saturation 96.7 % (94-97); ABG PCO2 42 mmHg (35-45); ABG PH 7.41 (7.35-7.45); ABG PO2 77 mmHg (83-108); ABG TCO2 28 mmol/L (19-24)
[2017-08-14 05:01] LABS: Basophils % (A) 0 %; Eosinophils # (A) 0.1 k/uL (0-0.7); Eosinophils % (A) 1 %; HCT 34.6 % (34.0-46.0); HGB 11.6 gm/dL (11.4-16.0); Lymphocytes # (A) 1.1 k/uL (1.0-4.8); Lymphocytes % (A) 9 %; MCH 30.6 pg (25.0-35.0); MCHC 33.5 g/dL (31.0-37.0); MCV 91.3 fL (80.0-100.0); Mean Platelet Volume 6.9; Monocytes # (A) 0.9 k/uL (0-1.0); Monocytes % (A) 8 %; Neutrophils # (A) 9.5 k/uL (1.3-7.7); Neutrophils % (A) 80 %; Platelet Count 203 k/uL (150-450); RBC 3.79 m/uL (3.80-5.40); RDW 13.2 % (11.5-15.5); WBC 11.9 k/uL (3.8-10.6)
[2017-08-14] MEDS: DILTIAZEM 50 MG in SODIUM CHLORIDE 0.9% 40 ML IV SCH ×4 (05:11→19:42)
[2017-08-14 05:34] LABS: Calcium 7.9 mg/dL (8.4-10.2); Magnesium 2.4 mg/dL (1.6-2.3); Phosphorus 2.4 mg/dL (2.5-4.5); Potassium 3.8 mmol/L (3.5-5.1)
[2017-08-14] MEDS ORDERED: POTASSIUM BICARBONATE/CIT AC 20 MEQ TABLET.EFF NG-TUBE SCH (06:00)
[2017-08-14 06:42] LABS: Glucose,Whole Blood 264 mg/dL (75-99)
--- NOTE | 2017-08-14 07:46 | XR ---
EXAMINATION TYPE: XR chest 1V portable DATE OF EXAM: 08/14/2017 CLINICAL HISTORY: Difficulty breathing progress study. TECHNIQUE: Single AP portable semiupright view of the chest is obtained. COMPARISON: Chest x-ray from one day earlier and older studies. FINDINGS: An endotracheal tube and orogastric tube are stable in appearance. There is stable mild ca rdiomegaly with central vascular congestion and bibasilar opacities. No sizable pneumothorax is seen bilaterally. Degenerative change in both shoulders is redemonstrated. IMPRESSION: Overall stable findings, correlate for CHF exacerbation as there is cardiomegaly with c entral vascular congestion and small bilateral pleural effusions all redemonstrated with associated b ibasilar atelectasis and/or infiltrate noted.
[2017-08-14] MEDS: ATORVASTATIN 80 MG TAB PO SCH (08:09)
[2017-08-14] MEDS: ASPIRIN 325 MG TAB PO SCH (08:09)
[2017-08-14] MEDS: AMIODARONE 200 MG TAB PO SCH ×2 (08:09→21:07)
[2017-08-14] MEDS: FUROSEMIDE 10 MG/ML 4 ML VIAL IV SCH (08:10)
[2017-08-14] MEDS: CHLORHEXIDINE GLUCONATE 15 ML CUP MUCOUS MEM SCH ×2 (08:10→21:07)
[2017-08-14] MEDS: PANTOPRAZOLE 40 MG/10 ML VIAL IVP SCH (08:10)
[2017-08-14] MEDS: DIGOXIN 125 MCG TAB PO SCH (08:10)
[2017-08-14] MEDS: POTASSIUM CHLORIDE ER 10 MEQ TAB.ER.PRT PO SCH (08:10)
[2017-08-14 09:18] VITALS: BMI 36.6
--- NOTE | 2017-08-14 09:22 | P.PN ---
Subjective Progress Note Date: 08/14/17 Principal diagnosis: Respiratory failure Progress note dated 08/12/2017 This is an 87-year-old female seen by my partner yesterday with acute hypoxemic respiratory failure, requiring intubation and mechanical ventilation. Respiratory failure was thought related to acute congestive heart failure with secondary atrial fibrillation and RVR. There may also be systolic dysfunction as well. The patient also has a possibility of a pneumonia although it was felt to be less likely. In addition, the patient has a history of benign essential hypertension type 2 diabetes and chronic anxiety disorder. The patient was also thought to have possibly have had a pulmonary embolism because of an elevated d-dimer. The patient's currently already on heparin for his her atrial fibrillation. I will get Dopplers of the lower extremities but no need to proceed with CT angiogram at this time. Currently, the patient is on the mechanical ventilator. The mechanical ventilator settings include the assist control mode rate of 14 tidal volume 400 FiO2 40% and a PEEP of 5. Arterial blood gases show a PaO2 of 90 a PaCO2 of 39 and a pH of 7.43. We will increase the rate up to 24 and decreased the tidal volume from 400 to 350. Currently, the patient's on a saline IV at 10 mL an hour heparin infusion via weightbase protocol norepinephrine at 22 mics per minute, Cardizem drip at 15 mg an hour, insulin drip at 1.5 units per hour propofol 45 mics per kilogram per minute and vital high protein at 35 with a goal of 50 mL per hour. The patient will definitely have a daily interuption of sedation today a random cortisol level and Dopplers of the lower extremities. Progress note dated 08/13/2017 This is an 87-year-old female seen by my partner over the weekend. She came with acute hypoxemic respiratory failure which required intubation and mechanical ventilation. Her respiratory failure was thought be related to underlying acute congestive heart failure was secondary atrial fibrillation and RVR. The patient may also have some systolic dysfunction as well. Pneumonia was thought to be possibility but seems less likely. The patient does have a history of benign essential hypertension, type 2 diabetes and chronic anxiety disorder. Dopplers of the lower extremities were negative. 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 I did alert the girls today to talk to the family about CODE STATUS. In addition, her cortisol level was only 20 she did not respond to 100 mg of hydrocortisone IV push. Hence, relative adrenal insufficiency seems unlikely. The patient is on the assist control mode rate of 24 tidal volume 350 FiO2 of 40% and PEEP of 5. Arterial blood gases show a PaO2 of 87 paCO2 of 41 and a pH of 7.41. Currently , she is on Cardizem drip at 15 mg an hour, heparin via weightbase protocol norepinephrine is 16 mics per minute propofol at 50 mics per kilogram per minute insulin at 5 units an hour and a saline IV at 10 mL an hour. She's also getting vital AF at 47 with a goal of 47 mL per hour. Today's chest x-ray shows evidence of fluid overload with bilateral effusions and fluid in the minor fissure. She also has cardiomegaly. She did not to do well today on her daily interruption of sedation. Not yet ready to wean. Progress note dated 08/14/2017 87-year-old female who been seeing for the last couple of days. Initially seen by my partner over the weekend. She came in with acute hypoxemic respiratory failure which required intubation and mechanical ventilation. Her respiratory failure was thought to be related to acute congestive heart failure as well as atrial fibrillation with rapid ventricular response. The patient was thought to have systolic dysfunction and that was proven because of an echocardiogram done a couple years ago showed an ejection fraction of 20-25% and a more recent echocardiogram again showed an ejection fraction of about 20%. Pneumonia was thought to be a less like. She also has a history of benign essential hypertension, type 2 diabetes, and chronic anxiety disorder. Dopplers of the lower extremities were negative. She did have a Sanches's cyst on the left side. Her CODE STATUS is now DO NOT RESUSCITATE. The family might consider comfort measures and they want to speak to me sometime after rounds today. Her cortisol level was 20 and she did not respond to IV hydrocortisone at 100 mg. Hence, relative adrenal insufficiency seems unlikely. The patient's vent settings include the assist control mode rate of 24 tidal volume 350 FiO2 of 40 % PEEP of 5. Arterial blood gases show a PaO2 of 77, a PaCO2 of 32 and a pH of 7.41. She remains on a Cardizem drip at 15 mg an hour, heparin via weightbase protocol, norepinephrine and 18 mics per minute, propofol at 10 mL an hour. In addition, she is on vital AF at 1.2 with a goal of 47. She's a 47 mL per hour. Objective - Vital Signs Vital signs: Vital Signs Temp 99.3 F 08/14/17 08:00 Pulse 89 08/14/17 08:00 Resp 26 H 08/14/17 08:00 BP 79/59 08/11/17 03:00 Pulse Ox 99 08/14/17 08:00 Intake & Output 08/13/17 08/14/17 08/14/17 18:59 06:59 18:59 Intake Total 2267.213 1489 194 Output Total 1260 410 30 Balance 0233.052 7316 164 Weight 99.9 kg Intake: IV 370 10 0.9 KVO Carrier 120 10 Azithromycin 500 mg In 250 Sodium Chloride 0.9% 250 ml @ 125 mls/hr IVPB DAILY [facility] Rx#:[id number] Intake, IV Titration 1223.213 727 100 Amount Diltiazem 50 mg In Sodium 197 50 Chloride 0.9% 40 ml @ 10 MG/HR 10 mls/hr IV .Q5H [facility] Rx#:[id number] Heparin Sod,Pork in 0.45% 169.35 NaCl 25,000 unit In 0.45 % NaCl 1 500ml.bag @ 18 UNITS/KG/HR 31.84 mls/hr IV .[id number] [facility] Rx#: [id number] Insulin Regular 100 unit 50.313 In Sodium Chloride 0.9% 100 ml @ Per Protocol IV .Q0M [facility] Rx#:[id number] Norepinephrin 4 mg-0.9% 456.75 477 Ns Pmx 4 mg In 250 ml @ Titrate IV .Q0M [facility] Rx#: [id number] Propofol 1,000 mg In 349.800 200 100 Empty Bag 1 bag @ Titrate IV .Q0M [facility] Rx#: [id number] Tube Feeding 564 752 94 Other 110 Output: Urine 1260 410 30 Other: Voiding Method Indwelling Catheter Indwelling Catheter ABP, PAP, CO, CI - Last Documented Arterial Blood Pressure 105/45 - Exam No acute distress, she is sedated, with an orally placed endotracheal tube and NG tube. HEENT examination is grossly unremarkable. Mucous membranes are moist. Neck supple. Full range of motion. No adenopathy thyromegaly or neck vein distention. Cardiovascular examination reveals regular rhythm rate. S1-S2 normal. No S3 or S4. No discernible murmur noted. Lungs reveal diffuse coarse rhonchi. A few scattered crackles are noted. Breath sounds are diminished throughout but equal bilaterally. Abdomen soft bowel sounds are heard. No masses or tenderness. Extremities are intact. No cyanosis or clubbing. There is slight edema. Skin is without rash or lesion. Neurologic examination is very difficult to assess. - Labs CBC & Chem 7: 08/14/17 04:50 08/14/17 04:50 Labs: Abnormal Lab Results - Last 24 Hours (Table) 08/13/17 08/13/17 08/13/17 Range/Units 10:27 11:13 12:47 WBC (3.8-10.6) k/uL RBC (3.80-5.40) m/uL Neutrophils # (1.3-7.7) k/uL APTT (22.0-30.0) sec ABG pO2 (83-108) mmHg ABG HCO3 (21-25) mmol/L ABG Total CO2 (19-24) mmol/L Chloride (98-107) mmol/L BUN (7-17) mg/dL Glucose (74-99) mg/dL POC Glucose (mg/dL) 202 H 173 H 173 H (75-99) mg/dL Calcium (8.4-10.2) mg/dL Phosphorus (2.5-4.5) mg/dL Magnesium (1.6-2.3) mg/dL 08/13/17 08/13/17 08/14/17 Range/Units 15:27 18:01 00:10 WBC (3.8-10.6) k/uL RBC (3.80-5.40) m/uL Neutrophils # (1.3-7.7) k/uL APTT (22.0-30.0) sec ABG pO2 (83-108) mmHg ABG HCO3 (21-25) mmol/L ABG Total CO2 (19-24) mmol/L Chloride (98-107) mmol/L BUN (7-17) mg/dL Glucose (74-99) mg/dL POC Glucose (mg/dL) 203 H 250 H 217 H (75-99) mg/dL Calcium (8.4-10.2) mg/dL Phosphorus (2.5-4.5) mg/dL Magnesium (1.6-2.3) mg/dL 08/14/17 08/14/17 08/14/17 Range/Units 04:34 04:50 04:50 WBC 11.9 H (3.8-10.6) k/uL RBC 3.79 L (3.80-5.40) m/uL Neutrophils # 9.5 H (1.3-7.7) k/uL APTT (22.0-30.0) sec ABG pO2 77 L (83-108) mmHg ABG HCO3 26 H (21-25) mmol/L ABG Total CO2 28 H (19-24) mmol/L Chloride 108 H (98-107) mmol/L BUN 21 H (7-17) mg/dL Glucose 248 H (74-99) mg/dL POC Glucose (mg/dL) (75-99) mg/dL Calcium 7.9 L (8.4-10.2) mg/dL Phosphorus 2.4 L (2.5-4.5) mg/dL Magnesium 2.4 H (1.6-2.3) mg/dL 08/14/17 08/14/17 Range/Units 04:50 06:40 WBC (3.8-10.6) k/uL RBC (3.80-5.40) m/uL Neutrophils # (1.3-7.7) k/uL APTT 57.8 H (22.0-30.0) sec ABG pO2 (83-108) mmHg ABG HCO3 (21-25) mmol/L ABG Total CO2 (19-24) mmol/L Chloride (98-107) mmol/L BUN (7-17) mg/dL Glucose (74-99) mg/dL POC Glucose (mg/dL) 264 H (75-99) mg/dL Calcium (8.4-10.2) mg/dL Phosphorus (2.5-4.5) mg/dL Magnesium (1.6-2.3) mg/dL Microbiology - Last 24 Hours (Table) 08/12/17 13:43 Urine Culture - Final Urine,Catheterized 08/12/17 13:30 Blood Culture - Preliminary Blood No Growth after 24 hours 08/12/17 13:22 Blood Culture - Preliminary Blood No Growth after 24 hours 08/12/17 13:43 Gram Stain - Preliminary Sputum Sputum Culture - Preliminary Assessment and Plan Assessment: Acute hypoxemic respiratory failure requiring intubation and mechanical ventilation, likely secondary to acute congestive heart failure as well as atrial fibrillation and RVR and possible underlying systolic dysfunction, and/ or possible pneumonia. Acute congestive heart failure Atrial fibrillation with RVR Doubt possible underlying pneumonia Benign essential hypertension Type 2 diabetes History of anxiety disorder Failure to wean from mechanical ventilation Plan: Plan dated 08/12/2017 The patient today will have a DIS, a random cortisol level and Dopplers of the lower extremities. She is not likely to be weaned today as she still receiving quite a bit of medication. We did make some vent changes increasing the rate from 14 up to 24 and decreasing the tidal volume from 400 down to 350. X-rays labs and medications are all reviewed. We'll continue to wean the norepinephrine. No additional recommendations are made. Prognosis is guarded. Critical care time is 37 minutes. Plan dated 08/13/2017 The patient did not respond to 100 mg of hydrocortisone IV push. The blood pressure did not improve. The patient's vent settings are appropriate. She still remains on lots of medications Coumadin Cardizem and heparin norepinephrine propofol insulin and saline IV. She is getting nourishment. Labs x-rays a medications are reviewed. Chest x-ray is consistent with fluid overload. We'll continue to follow. Prognosis is not good. We'll have a nurse talk with the family today about CODE STATUS. Critical care time 36 minutes Plan dated 08/14/2017 The patient did not respond to 100 mg of hydrocortisone IV push. The patient likely does not have a relative adrenal insufficiency. The patient's family made the patient a DO NOT RESUSCITATE. I think that's appropriate. Repeat echocardiogram showed a ejection fraction of about 20%. Vent settings are appropriate. She remains on Cardizem and heparin norepinephrine propofol and saline IV. He is being nourished. Overall prognosis is very poor. I will talk with the family again today. Critical care time 38 minutes Time with Patient: Greater than 30
--- NOTE | 2017-08-14 11:12 | P.PN ---
Subjective Progress Note Date: 08/14/17 Principal diagnosis: Acute respiratory failure This is a pleasant 87-year-old female patient with a past medical history significant for severe cardiomyopathy based on an echocardiogram was performed in 2014, chronic atrial fibrillation, hypertension, dyslipidemia, presented to the emergency room complaining of shortness of breath. Currently the patient is intubated and she is on ventilatory. The history was taken from the chart as well as from her son who was bit side. The shortness of breath started about 3 days ago and has gotten worse since. She did not have any symptoms of chest pain or chest discomfort. When she presented to the emergency room, she was in mild respiratory distress and she was in A. fib with RVR. Initially the patient was admitted to the selective floor and she was started on Cardizem drip but apparently the shortness of breath get worse and the patient developed acute respiratory failure required intubation and mechanical ventilation. Beside that she was hypotensive requiring vasopressors was Levophed. The chest x-ray showed findings consistent with CHF. The cardiac enzymes are slightly abnormal. On follow-up with the patient today on 08/14/2017, the patient continues to be in acute respiratory failure and continues to be intubated and requiring 40% FiO2. Beside that hemodynamically she continues to be unstable and requiring high dose of Levophed. She continues to be in atrial fibrillation with slightly controlled heart rate. I am going to decrease the dose of Cardizem IV and hopefully we will be able to wean her from the Levophed. She continues to be on heparin IV and continues to be on Lasix IV as well. The chest x-ray from today showed finding consistent with CHF. Objective - Vital Signs Vital signs: Vital Signs Temp 99.3 F 08/14/17 08:00 Pulse 82 08/14/17 11:00 Resp 24 08/14/17 11:00 BP 79/59 08/11/17 03:00 Pulse Ox 96 08/14/17 11:00 Intake & Output 08/13/17 08/14/17 08/14/17 18:59 06:59 18:59 Intake Total 2267.213 1739 403.000 Output Total 1260 410 30 Balance 8769.373 9750 373.000 Weight 99.9 kg 99.9 kg Intake: IV 370 10 0.9 KVO Carrier 120 10 Azithromycin 500 mg In 250 Sodium Chloride 0.9% 250 ml @ 125 mls/hr IVPB DAILY [facility] Rx#:[id number] Intake, IV Titration 1223.213 977 309.000 Amount Diltiazem 50 mg In Sodium 197 50 73 Chloride 0.9% 40 ml @ 10 MG/HR 10 mls/hr IV .Q5H [facility] Rx#:[id number] Heparin Sod,Pork in 0.45% 169.35 NaCl 25,000 unit In 0.45 % NaCl 1 500ml.bag @ 18 UNITS/KG/HR 31.84 mls/hr IV .[id number] [facility] Rx#: [id number] Insulin Regular 100 unit 50.313 In Sodium Chloride 0.9% 100 ml @ Per Protocol IV .Q0M [facility] Rx#:[id number] Norepinephrin 4 mg-0.9% 456.75 727 129.375 Ns Pmx 4 mg In 250 ml @ Titrate IV .Q0M [facility] Rx#: [id number] Propofol 1,000 mg In 349.800 200 106.625 Empty Bag 1 bag @ Titrate IV .Q0M [facility] Rx#: [id number] Tube Feeding 564 752 94 Other 110 Output: Urine 1260 410 30 Other: Voiding Method Indwelling Catheter Indwelling Catheter ABP, PAP, CO, CI - Last Documented Arterial Blood Pressure 114/51 - Constitutional General appearance: Present: no acute distress - Respiratory Respiratory: bilateral: diminished - Cardiovascular Rhythm: regular Heart sounds: normal: S1, S2 - Labs CBC & Chem 7: 08/14/17 04:50 08/14/17 04:50 Labs: Abnormal Lab Results - Last 24 Hours (Table) 08/13/17 08/13/17 08/13/17 Range/Units 11:13 12:47 15:27 WBC (3.8-10.6) k/uL RBC (3.80-5.40) m/uL Neutrophils # (1.3-7.7) k/uL APTT (22.0-30.0) sec ABG pO2 (83-108) mmHg ABG HCO3 (21-25) mmol/L ABG Total CO2 (19-24) mmol/L Chloride (98-107) mmol/L BUN (7-17) mg/dL Glucose (74-99) mg/dL POC Glucose (mg/dL) 173 H 173 H 203 H (75-99) mg/dL Calcium (8.4-10.2) mg/dL Phosphorus (2.5-4.5) mg/dL Magnesium (1.6-2.3) mg/dL 08/13/17 08/14/17 08/14/17 Range/Units 18:01 00:10 04:34 WBC (3.8-10.6) k/uL RBC (3.80-5.40) m/uL Neutrophils # (1.3-7.7) k/uL APTT (22.0-30.0) sec ABG pO2 77 L (83-108) mmHg ABG HCO3 26 H (21-25) mmol/L ABG Total CO2 28 H (19-24) mmol/L Chloride (98-107) mmol/L BUN (7-17) mg/dL Glucose (74-99) mg/dL POC Glucose (mg/dL) 250 H 217 H (75-99) mg/dL Calcium (8.4-10.2) mg/dL Phosphorus (2.5-4.5) mg/dL Magnesium (1.6-2.3) mg/dL 08/14/17 08/14/17 08/14/17 Range/Units 04:50 04:50 04:50 WBC 11.9 H (3.8-10.6) k/uL RBC 3.79 L (3.80-5.40) m/uL Neutrophils # 9.5 H (1.3-7.7) k/uL APTT 57.8 H (22.0-30.0) sec ABG pO2 (83-108) mmHg ABG HCO3 (21-25) mmol/L ABG Total CO2 (19-24) mmol/L Chloride 108 H (98-107) mmol/L BUN 21 H (7-17) mg/dL Glucose 248 H (74-99) mg/dL POC Glucose (mg/dL) (75-99) mg/dL Calcium 7.9 L (8.4-10.2) mg/dL Phosphorus 2.4 L (2.5-4.5) mg/dL Magnesium 2.4 H (1.6-2.3) mg/dL 08/14/17 Range/Units 06:40 WBC (3.8-10.6) k/uL RBC (3.80-5.40) m/uL Neutrophils # (1.3-7.7) k/uL APTT (22.0-30.0) sec ABG pO2 (83-108) mmHg ABG HCO3 (21-25) mmol/L ABG Total CO2 (19-24) mmol/L Chloride (98-107) mmol/L BUN (7-17) mg/dL Glucose (74-99) mg/dL POC Glucose (mg/dL) 264 H (75-99) mg/dL Calcium (8.4-10.2) mg/dL Phosphorus (2.5-4.5) mg/dL Magnesium (1.6-2.3) mg/dL Microbiology - Last 24 Hours (Table) 08/12/17 13:43 Gram Stain - Final Sputum Sputum Culture - Final 08/12/17 13:43 Urine Culture - Final Urine,Catheterized 08/12/17 13:30 Blood Culture - Preliminary Blood No Growth after 24 hours 08/12/17 13:22 Blood Culture - Preliminary Blood No Growth after 24 hours Assessment and Plan Assessment: Assessment #1 acute hypoxic respiratory failure #2 congestive heart failure exacerbation secondary to systolic dysfunction #3 atrial fibrillation with a rapid ventricular response #4 infiltrate on the chest x-ray likely related to pneumonia #5 shock likely to be septic #6 abnormal d-dimer #7 known severe cardiomyopathy Plan #1 try to wean the patient from the vasopressin at this point of time #Try to lower the dose of Cardizem IV #3 continue the heparin IV and Lasix IV #4 follow-up with the patient The prognosis overall is poor.
--- NOTE | 2017-08-14 11:45 | P.PN ---
Subjective Progress Note Date: 08/14/17 Yomaira Mcdonnell is an 87-year-old female well known to my practice who presented to [facility] emergency room with a chief complaint of worsening shortness of breath. She was evaluated in emergency room and was found to have atrial fibrillation with rapid ventricular response and evidence of acute exacerbation of congestive heart failure was pulmonary edema she was started on IV Cardizem drip and IV Lasix and was admitted to telemetry floor, cardiology consultation was requested. While on the telemetry floor patient continued to have rapid ventricular response with heart rate up to 140 bpm, Cardizem drip was increased from 5 mg/h to 10 mg/h, patient continued to have worsening shortness of breath through the night. Around 3 AM patient was having severe shortness of breath and evidence of oxygen desaturation, she was transferred to intensive care unit she was intubated and started on mechanical ventilation. consultation for Dr. Mark pulmonary critical care was initiated. Patient was seen on 08/11/2017 in intensive care unit she is intubated sedated maintained on mechanical ventilation she is requiring pressure support with IV levo fed, she is also on amiodarone drip, Cardizem drip, insulin drip, and IV heparin drip. Chest x-ray is revealing evidence of pulmonary edema, and by basilar infiltrates, patient is maintained on IV Lasix, she is also receiving IV Zithromax and IV Rocephin. EKG revealed atrial fibrillation was rapid ventricular response was a heart rate of 149, also revealed left bundle branch block, troponin level was slightly elevated at 0.087. On 08/12/2017 patient remains intubated sedated maintained on mechanical ventilation, vent setting is assist control rate of 24 tidal volume 350 FiO2 of 40% and PEEP of 5 patient still requiring norepinephrine drip, Cardizem drip, insulin drip, she also has an NG tube and is receiving protein supplement. Her 2 daughters are at bedside, and are aware of condition. 08/13/2017 patient remains intubated. Did not tolerate sedation holiday. She is currently in restarted on sedation. She still requiring vasopressor and Cardizem drip. Patient remains in atrial fibrillation heart rate in the 100s. 08/14/2017 patient remains intubated and sedated and maintained on mechanical ventilation. Did not tolerate sedation holiday yesterday. . She is still requiring vasopressor and Cardizem drip. Patient remains in atrial fibrillation heart rate in the 100s. Objective - Vital Signs Vital signs: Vital Signs Temp 99.3 F 08/14/17 08:00 Pulse 82 08/14/17 11:00 Resp 24 08/14/17 11:00 BP 79/59 08/11/17 03:00 Pulse Ox 96 08/14/17 11:00 Intake & Output 08/13/17 08/14/17 08/14/17 18:59 06:59 18:59 Intake Total 2267.213 1739 403.000 Output Total 1260 410 30 Balance 9365.479 4025 373.000 Weight 99.9 kg 99.9 kg Intake: IV 370 10 0.9 KVO Carrier 120 10 Azithromycin 500 mg In 250 Sodium Chloride 0.9% 250 ml @ 125 mls/hr IVPB DAILY [facility] Rx#:[id number] Intake, IV Titration 1223.213 977 309.000 Amount Diltiazem 50 mg In Sodium 197 50 73 Chloride 0.9% 40 ml @ 10 MG/HR 10 mls/hr IV .Q5H [facility] Rx#:[id number] Heparin Sod,Pork in 0.45% 169.35 NaCl 25,000 unit In 0.45 % NaCl 1 500ml.bag @ 18 UNITS/KG/HR 31.84 mls/hr IV .[id number] [facility] Rx#: [id number] Insulin Regular 100 unit 50.313 In Sodium Chloride 0.9% 100 ml @ Per Protocol IV .Q0M [facility] Rx#:[id number] Norepinephrin 4 mg-0.9% 456.75 727 129.375 Ns Pmx 4 mg In 250 ml @ Titrate IV .Q0M [facility] Rx#: [id number] Propofol 1,000 mg In 349.800 200 106.625 Empty Bag 1 bag @ Titrate IV .Q0M [facility] Rx#: [id number] Tube Feeding 564 752 94 Other 110 Output: Urine 1260 410 30 Other: Voiding Method Indwelling Catheter Indwelling Catheter ABP, PAP, CO, CI - Last Documented Arterial Blood Pressure 114/51 - Exam Patient is intubated sedated maintained on mechanical ventilation HEENT head normocephalic and atraumatic Neck is supple no JVD no goiter no lymphadenopathy Chest exam reveals a few scattered crackles bilaterally no wheezing Cardiac exam reveals irregular heart sounds no gallops no murmurs Abdomen is soft nontender no organomegaly with normal bowel sounds Extremity exam reveals no edema with palpable peripheral pulses - Labs CBC & Chem 7: 08/14/17 04:50 08/14/17 04:50 Labs: Abnormal Lab Results - Last 24 Hours (Table) 08/13/17 08/13/17 08/13/17 Range/Units 12:47 15:27 18:01 WBC (3.8-10.6) k/uL RBC (3.80-5.40) m/uL Neutrophils # (1.3-7.7) k/uL APTT (22.0-30.0) sec ABG pO2 (83-108) mmHg ABG HCO3 (21-25) mmol/L ABG Total CO2 (19-24) mmol/L Chloride (98-107) mmol/L BUN (7-17) mg/dL Glucose (74-99) mg/dL POC Glucose (mg/dL) 173 H 203 H 250 H (75-99) mg/dL Calcium (8.4-10.2) mg/dL Phosphorus (2.5-4.5) mg/dL Magnesium (1.6-2.3) mg/dL 08/14/17 08/14/17 08/14/17 Range/Units 00:10 04:34 04:50 WBC 11.9 H (3.8-10.6) k/uL RBC 3.79 L (3.80-5.40) m/uL Neutrophils # 9.5 H (1.3-7.7) k/uL APTT (22.0-30.0) sec ABG pO2 77 L (83-108) mmHg ABG HCO3 26 H (21-25) mmol/L ABG Total CO2 28 H (19-24) mmol/L Chloride (98-107) mmol/L BUN (7-17) mg/dL Glucose (74-99) mg/dL POC Glucose (mg/dL) 217 H (75-99) mg/dL Calcium (8.4-10.2) mg/dL Phosphorus (2.5-4.5) mg/dL Magnesium (1.6-2.3) mg/dL 08/14/17 08/14/17 08/14/17 Range/Units 04:50 04:50 06:40 WBC (3.8-10.6) k/uL RBC (3.80-5.40) m/uL Neutrophils # (1.3-7.7) k/uL APTT 57.8 H (22.0-30.0) sec ABG pO2 (83-108) mmHg ABG HCO3 (21-25) mmol/L ABG Total CO2 (19-24) mmol/L Chloride 108 H (98-107) mmol/L BUN 21 H (7-17) mg/dL Glucose 248 H (74-99) mg/dL POC Glucose (mg/dL) 264 H (75-99) mg/dL Calcium 7.9 L (8.4-10.2) mg/dL Phosphorus 2.4 L (2.5-4.5) mg/dL Magnesium 2.4 H (1.6-2.3) mg/dL Microbiology - Last 24 Hours (Table) 08/12/17 13:43 Gram Stain - Final Sputum Sputum Culture - Final 08/12/17 13:43 Urine Culture - Final Urine,Catheterized 08/12/17 13:30 Blood Culture - Preliminary Blood No Growth after 24 hours 08/12/17 13:22 Blood Culture - Preliminary Blood No Growth after 24 hours Assessment and Plan Plan: #1 acute hypoxic respiratory failure, requiring intubation and mechanical ventilation, vent setting adjusted by Dr. Echeverria #2 atrial fibrillation with rapid ventricular response heart rate is improving currently maintained on amiodarone drip and Cardizem drip #3 acute congestive heart failure exacerbation with evidence of pulmonary edema. Cardiology consultation requested echocardiogram requested the results are still pending #4 Bibasilar infiltrate, suspected pneumonia pneumonia patient was started on IV Rocephin and IV Zithromax awaiting further evaluation. #5 elevated d-dimer at 6.82 patient is maintained on IV heparin, will have further evaluation for pulmonary embolism once her condition has improved, she will need to be on anticoagulation for atrial fibrillation regardless of testing results for pulmonary embolism. #6 underlying history of hypertension #7 underlying history of diabetes mellitus, currently on Levemir 20 units daily and insulin sliding-scale every 6 hours #8 underlying history of anxiety disorder Condition is critical and prognosis is guarded family at bedside and aware of patient's condition and prognosis, CODE STATUS changed no code Will follow closely
[2017-08-14 12:15] LABS: Glucose,Whole Blood 267 mg/dL (75-99)
[2017-08-14] MEDS: HEPARIN SOD,PORK IN 0.45% NACL 25,000 UNIT in 0.45% NACL 1 500ML.BAG IV SCH (12:15)
[2017-08-14 18:49] LABS: Glucose,Whole Blood 243 mg/dL (75-99)
[2017-08-14 20:07] LABS: Basophils % (A) 0 %; Eosinophils # (A) 0.1 k/uL (0-0.7); Eosinophils % (A) 1 %; HCT 36.6 % (34.0-46.0); HGB 11.7 gm/dL (11.4-16.0); Lymphocytes # (A) 0.7 k/uL (1.0-4.8); Lymphocytes % (A) 6 %; MCH 29.8 pg (25.0-35.0); MCHC 31.8 g/dL (31.0-37.0); MCV 93.5 fL (80.0-100.0); Mean Platelet Volume 7.4; Monocytes # (A) 1.2 k/uL (0-1.0); Monocytes % (A) 9 %; Neutrophils # (A) 11.2 k/uL (1.3-7.7); Neutrophils % (A) 83 %; Platelet Count 199 k/uL (150-450); RBC 3.92 m/uL (3.80-5.40); RDW 13.5 % (11.5-15.5); WBC 13.4 k/uL (3.8-10.6)
[2017-08-14] MEDS: INSULIN DETEMIR 100 UNIT/ML 10 ML VIAL SQ SCH (21:06)
[2017-08-14 23:49] LABS: Glucose,Whole Blood 199 mg/dL (75-99)
[2017-08-15] MEDS: ACETAMINOPHEN IV (For NPO) 1,000 MG in EMPTY BAG 1 BAG IVPB PRN ×2 (00:02→12:07)
[2017-08-15] MEDS: NOREPINEPHRIN 4 MG-0.9% NS PMX 4 MG/250 ML ML IV SCH ×6 (00:02→14:59)
[2017-08-15] MEDS: INSULIN ASPART 100 UNIT/ML 1 ML 10 ML VIAL SQ SCH ×4 (00:03→19:05)
[2017-08-15] MEDS: DILTIAZEM 50 MG in SODIUM CHLORIDE 0.9% 40 ML IV SCH ×5 (01:14→19:05)
[2017-08-15] MEDS: PROPOFOL 1,000 MG in EMPTY BAG 1 BAG IV SCH ×6 (01:15→19:07)
[2017-08-15 03:40] LABS: ABG Base Excess 2.9 mmol/L; ABG HCO3 28 mmol/L (21-25); ABG Oxygen Saturation 94.4 % (94-97); ABG PCO2 51 mmHg (35-45); ABG PH 7.36 (7.35-7.45); ABG PO2 66 mmHg (83-108); ABG TCO2 30 mmol/L (19-24)
[2017-08-15] MEDS: HEPARIN SOD,PORK IN 0.45% NACL 25,000 UNIT in 0.45% NACL 1 500ML.BAG IV SCH (03:40)
[2017-08-15 04:42] LABS: Magnesium 2.4 mg/dL (1.6-2.3); Phosphorus 2.6 mg/dL (2.5-4.5); Potassium 3.9 mmol/L (3.5-5.1)
[2017-08-15 05:01] LABS: Basophils % (A) 0 %; Eosinophils # (A) 0.1 k/uL (0-0.7); Eosinophils % (A) 1 %; HCT 35.9 % (34.0-46.0); HGB 11.6 gm/dL (11.4-16.0); Lymphocytes # (A) 1.5 k/uL (1.0-4.8); Lymphocytes % (A) 12 %; MCH 30.1 pg (25.0-35.0); MCHC 32.4 g/dL (31.0-37.0); MCV 93.1 fL (80.0-100.0); Mean Platelet Volume 7.1; Monocytes % (A) 9 %; Neutrophils # (A) 9.1 k/uL (1.3-7.7); Neutrophils % (A) 76 %; Platelet Count 221 k/uL (150-450); RBC 3.86 m/uL (3.80-5.40); RDW 13.2 % (11.5-15.5)
[2017-08-15 05:35] LABS: Glucose,Whole Blood 193 mg/dL (75-99)
--- NOTE | 2017-08-15 08:37 | XR ---
EXAMINATION TYPE: XR chest 1V portable DATE OF EXAM: 08/15/2017 Comparison: 08/14/2017 Clinical History: 87-year-old female Tube placement Findings: ET tube tip at the level of the medial clavicular heads. NG tube courses below the diaphragm. Heart r emains borderline enlarged. Diffuse interstitial densities persist with increased density throughout the right mid and lower lung and continued small left pleural effusion with retrocardiac opacity. Impression: 1. Findings suggest continued CHF and pulmonary vascular congestion. 2. [id number] right pleural effusion with adjacent atelectasis and/or consolidation increased in the interval. 3. Stable small left pleural effusion with prominent left basilar atelectasis and/or consolidation.
[2017-08-15] MEDS: ASPIRIN 325 MG TAB PO SCH (08:43)
[2017-08-15] MEDS: ATORVASTATIN 80 MG TAB PO SCH (08:43)
[2017-08-15] MEDS: AMIODARONE 200 MG TAB PO SCH (08:43)
[2017-08-15] MEDS: POTASSIUM CHLORIDE ER 10 MEQ TAB.ER.PRT PO SCH (08:44)
[2017-08-15] MEDS: CHLORHEXIDINE GLUCONATE 15 ML CUP MUCOUS MEM SCH (08:44)
[2017-08-15] MEDS: PANTOPRAZOLE 40 MG/10 ML VIAL IVP SCH (08:44)
[2017-08-15] MEDS: FUROSEMIDE 10 MG/ML 4 ML VIAL IV SCH (08:44)
[2017-08-15] MEDS: DIGOXIN 125 MCG TAB PO SCH (08:44)
--- NOTE | 2017-08-15 09:09 | P.PN ---
Subjective Progress Note Date: 08/15/17 Principal diagnosis: Respiratory failure Progress note dated 08/12/2017 This is an 87-year-old female seen by my partner yesterday with acute hypoxemic respiratory failure, requiring intubation and mechanical ventilation. Respiratory failure was thought related to acute congestive heart failure with secondary atrial fibrillation and RVR. There may also be systolic dysfunction as well. The patient also has a possibility of a pneumonia although it was felt to be less likely. In addition, the patient has a history of benign essential hypertension type 2 diabetes and chronic anxiety disorder. The patient was also thought to have possibly have had a pulmonary embolism because of an elevated d-dimer. The patient's currently already on heparin for his her atrial fibrillation. I will get Dopplers of the lower extremities but no need to proceed with CT angiogram at this time. Currently, the patient is on the mechanical ventilator. The mechanical ventilator settings include the assist control mode rate of 14 tidal volume 400 FiO2 40% and a PEEP of 5. Arterial blood gases show a PaO2 of 90 a PaCO2 of 39 and a pH of 7.43. We will increase the rate up to 24 and decreased the tidal volume from 400 to 350. Currently, the patient's on a saline IV at 10 mL an hour heparin infusion via weightbase protocol norepinephrine at 22 mics per minute, Cardizem drip at 15 mg an hour, insulin drip at 1.5 units per hour propofol 45 mics per kilogram per minute and vital high protein at 35 with a goal of 50 mL per hour. The patient will definitely have a daily interuption of sedation today a random cortisol level and Dopplers of the lower extremities. Progress note dated 08/13/2017 This is an 87-year-old female seen by my partner over the weekend. She came with acute hypoxemic respiratory failure which required intubation and mechanical ventilation. Her respiratory failure was thought be related to underlying acute congestive heart failure was secondary atrial fibrillation and RVR. The patient may also have some systolic dysfunction as well. Pneumonia was thought to be possibility but seems less likely. The patient does have a history of benign essential hypertension, type 2 diabetes and chronic anxiety disorder. Dopplers of the lower extremities were negative. 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 I did alert the girls today to talk to the family about CODE STATUS. In addition, her cortisol level was only 20 she did not respond to 100 mg of hydrocortisone IV push. Hence, relative adrenal insufficiency seems unlikely. The patient is on the assist control mode rate of 24 tidal volume 350 FiO2 of 40% and PEEP of 5. Arterial blood gases show a PaO2 of 87 paCO2 of 41 and a pH of 7.41. Currently , she is on Cardizem drip at 15 mg an hour, heparin via weightbase protocol norepinephrine is 16 mics per minute propofol at 50 mics per kilogram per minute insulin at 5 units an hour and a saline IV at 10 mL an hour. She's also getting vital AF at 47 with a goal of 47 mL per hour. Today's chest x-ray shows evidence of fluid overload with bilateral effusions and fluid in the minor fissure. She also has cardiomegaly. She did not to do well today on her daily interruption of sedation. Not yet ready to wean. Progress note dated 08/14/2017 87-year-old female who been seeing for the last couple of days. Initially seen by my partner over the weekend. She came in with acute hypoxemic respiratory failure which required intubation and mechanical ventilation. Her respiratory failure was thought to be related to acute congestive heart failure as well as atrial fibrillation with rapid ventricular response. The patient was thought to have systolic dysfunction and that was proven because of an echocardiogram done a couple years ago showed an ejection fraction of 20-25% and a more recent echocardiogram again showed an ejection fraction of about 20%. Pneumonia was thought to be a less like. She also has a history of benign essential hypertension, type 2 diabetes, and chronic anxiety disorder. Dopplers of the lower extremities were negative. She did have a Sanches's cyst on the left side. Her CODE STATUS is now DO NOT RESUSCITATE. The family might consider comfort measures and they want to speak to me sometime after rounds today. Her cortisol level was 20 and she did not respond to IV hydrocortisone at 100 mg. Hence, relative adrenal insufficiency seems unlikely. The patient's vent settings include the assist control mode rate of 24 tidal volume 350 FiO2 of 40 % PEEP of 5. Arterial blood gases show a PaO2 of 77, a PaCO2 of 32 and a pH of 7.41. She remains on a Cardizem drip at 15 mg an hour, heparin via weightbase protocol, norepinephrine and 18 mics per minute, propofol at 10 mL an hour. In addition, she is on vital AF at 1.2 with a goal of 47. She's a 47 mL per hour. Progress note dated 08/15/2017 87-year-old female who been seeing for last couple of days. She was initially seen by my partner over the weekend. She came into the hospital with acute hypoxemic respiratory failure which required intubation and mechanical ventilation. Her respiratory failure was related to underlying CHF because of severe cardiomyopathy as well as atrial fibrillation with rapid ventricular response. An echocardiogram revealed an ejection fraction of about 20%. Anyway , the patient remains on the ventilator. She does have a history of benign essential hypertension type 2 diabetes chronic anxiety disorder. Dopplers of the lower extremities were negative. She had a Sanches's cyst on the left popliteal space. She is a DO NOT RESUSCITATE. The family is strongly considering comfort measures. I did have a long talk with the son a couple days ago the daughter yesterday. We'll been doing daily interruption of sedation and the patient does not show any progress. Currently, she is on the assist control mode, rate of 24 tidal volume 350 FiO2 40% and PEEP of 5. Arterial blood gases show a PaO2 of 66 a PaCO2 of 51 and a pH of 7.35. The patient's on a Cardizem drip at 10 mg an hour. IV heparin via weightbase protocol is on hold, norepinephrine is at 20 mcg/m propofol is on hold for a daily interruption of sedation and the patient's on vital high protein at a rate of 24 with a goal of 24 mL per hour. The patient according to the nurse did have an episode of hemoptysis last night. Cardiology was called and the IV heparin was held. In addition, chest x-ray today continues to show a pattern of heart failure. Objective - Vital Signs Vital signs: Vital Signs Temp 98.6 F 08/15/17 04:00 Pulse 86 08/15/17 07:00 Resp 24 08/15/17 07:00 BP 106/55 08/15/17 07:00 Pulse Ox 94 L 08/15/17 07:00 Intake & Output 08/14/17 08/15/17 08/15/17 18:59 06:59 18:59 Intake Total 8215.671 0503.669 138.5 Output Total 1435 500 40 Balance 342.486 0169.669 98.5 Weight 99.9 kg 101.7 kg Intake: Intake, IV Titration 1249.606 6640.669 114.5 Amount ACETAMINOPHEN IV (For NPO 100 ) 1,000 mg In Empty Bag 1 bag @ 400 mls/hr IVPB Q6HR PRN Rx#:[id number] Diltiazem 50 mg In Sodium 100 142.667 Chloride 0.9% 40 ml @ 10 MG/HR 10 mls/hr IV .Q5H [facility] Rx#:[id number] Heparin Sod,Pork in 0.45% 264.616 NaCl 25,000 unit In 0.45 % NaCl 1 500ml.bag @ 18 UNITS/KG/HR 31.84 mls/hr IV .[id number] [facility] Rx#: [id number] Norepinephrin 4 mg-0.9% 911.250 962.386 Ns Pmx 4 mg In 250 ml @ Titrate IV .Q0M [facility] Rx#: [id number] Propofol 1,000 mg In 301.583 283 114.5 Empty Bag 1 bag @ Titrate IV .Q0M [facility] Rx#: [id number] Tube Feeding 521 336 24 Other 90 90 Output: Urine 1435 500 40 Other: Voiding Method Indwelling Catheter Indwelling Catheter ABP, PAP, CO, CI - Last Documented Arterial Blood Pressure 124/49 - Exam The patient does exhibit some respiratory distress off of sedation. Her minute volume is very high. She an orally placed endotracheal tube and NG tube. She does not respond appropriately. HEENT examination is grossly unremarkable. Mucous membranes are moist. Neck supple. Full range of motion. No adenopathy thyromegaly or neck vein distention. Cardiovascular examination reveals regular rhythm rate. S1-S2 normal. No S3 or S4. No discernible murmur noted. Lungs reveal diffuse coarse rhonchi. A few scattered crackles are noted. Breath sounds are diminished throughout but equal bilaterally. Abdomen soft bowel sounds are heard. No masses or tenderness. Extremities are intact. No cyanosis or clubbing. There is slight edema. Skin is without rash or lesion. Neurologic examination is very difficult to assess. - Labs CBC & Chem 7: 18 04:20 08/15/17 04:20 Labs: Abnormal Lab Results - Last 24 Hours (Table) 08/14/17 08/14/17 08/14/17 Range/Units 12:13 18:47 20:00 WBC 13.4 H (3.8-10.6) k/uL Neutrophils # 11.2 H (1.3-7.7) k/uL Lymphocytes # 0.7 L (1.0-4.8) k/uL Monocytes # 1.2 H (0-1.0) k/uL APTT (22.0-30.0) sec ABG pCO2 (35-45) mmHg ABG pO2 (83-108) mmHg ABG HCO3 (21-25) mmol/L ABG Total CO2 (19-24) mmol/L BUN (7-17) mg/dL Glucose (74-99) mg/dL POC Glucose (mg/dL) 267 H 243 H (75-99) mg/dL Calcium (8.4-10.2) mg/dL Magnesium (1.6-2.3) mg/dL 08/14/17 08/14/17 08/15/17 Range/Units 20:00 23:48 03:35 WBC (3.8-10.6) k/uL Neutrophils # (1.3-7.7) k/uL Lymphocytes # (1.0-4.8) k/uL Monocytes # (0-1.0) k/uL APTT 49.8 H (22.0-30.0) sec ABG pCO2 51 H (35-45) mmHg ABG pO2 66 L (83-108) mmHg ABG HCO3 28 H (21-25) mmol/L ABG Total CO2 30 H (19-24) mmol/L BUN (7-17) mg/dL Glucose (74-99) mg/dL POC Glucose (mg/dL) 199 H (75-99) mg/dL Calcium (8.4-10.2) mg/dL Magnesium (1.6-2.3) mg/dL 08/15/17 08/15/17 08/15/17 Range/Units 04:20 04:20 05:33 WBC 12.0 H (3.8-10.6) k/uL Neutrophils # 9.1 H (1.3-7.7) k/uL Lymphocytes # (1.0-4.8) k/uL Monocytes # (0-1.0) k/uL APTT (22.0-30.0) sec ABG pCO2 (35-45) mmHg ABG pO2 (83-108) mmHg ABG HCO3 (21-25) mmol/L ABG Total CO2 (19-24) mmol/L BUN 21 H (7-17) mg/dL Glucose 186 H (74-99) mg/dL POC Glucose (mg/dL) 193 H (75-99) mg/dL Calcium 8.0 L (8.4-10.2) mg/dL Magnesium 2.4 H (1.6-2.3) mg/dL Microbiology - Last 24 Hours (Table) 08/12/17 13:30 Blood Culture - Preliminary Blood No Growth after 48 hours 08/12/17 13:22 Blood Culture - Preliminary Blood No Growth after 48 hours 08/12/17 13:43 Gram Stain - Final Sputum Sputum Culture - Final Assessment and Plan Assessment: Acute hypoxemic respiratory failure requiring intubation and mechanical ventilation, likely secondary to acute congestive heart failure as well as atrial fibrillation and RVR and possible underlying systolic dysfunction, and/ or possible pneumonia. Acute congestive heart failure Atrial fibrillation with RVR Doubt possible underlying pneumonia Benign essential hypertension Type 2 diabetes History of anxiety disorder Failure to wean from mechanical ventilation Plan: Plan dated 08/12/2017 The patient today will have a DIS, a random cortisol level and Dopplers of the lower extremities. She is not likely to be weaned today as she still receiving quite a bit of medication. We did make some vent changes increasing the rate from 14 up to 24 and decreasing the tidal volume from 400 down to 350. X-rays labs and medications are all reviewed. We'll continue to wean the norepinephrine. No additional recommendations are made. Prognosis is guarded. Critical care time is 37 minutes. Plan dated 08/13/2017 The patient did not respond to 100 mg of hydrocortisone IV push. The blood pressure did not improve. The patient's vent settings are appropriate. She still remains on lots of medications Coumadin Cardizem and heparin norepinephrine propofol insulin and saline IV. She is getting nourishment. Labs x-rays a medications are reviewed. Chest x-ray is consistent with fluid overload. We'll continue to follow. Prognosis is not good. We'll have a nurse talk with the family today about CODE STATUS. Critical care time 36 minutes Plan dated 08/14/2017 The patient did not respond to 100 mg of hydrocortisone IV push. The patient likely does not have a relative adrenal insufficiency. The patient's family made the patient a DO NOT RESUSCITATE. I think that's appropriate. Repeat echocardiogram showed a ejection fraction of about 20%. Vent settings are appropriate. She remains on Cardizem and heparin norepinephrine propofol and saline IV. He is being nourished. Overall prognosis is very poor. I will talk with the family again today. Critical care time 38 minutes Plan dated 08/15/2017 I had a long discussion with the daughter yesterday. The patient is likely to be made comfort measures only sometime today. The family wanted to see one last time how she responded to the daily interruption of sedation. She did very poorly. Her heart rate seems out of. Her atrial fibrillation seems to kick in to a greater degree. She demonstrates some respiratory difficulty and unable to really maintain herself off the ventilator. Respiratory rate goes up. Her tidal volume goes down. Her minute volume goes way up. She anyway, she is a DO NOT RESUSCITATE. She remains on Cardizem drip at 10 mg an hour and a norepinephrine at 20 mcg/m. Prognosis is very poor. Critical care time 37 minutes Time with Patient: Greater than 30
[2017-08-15] MEDS ORDERED: INSULIN DETEMIR 100 UNIT/ML 10 ML VIAL SQ SCH ×2 (11:11→21:00)
--- NOTE | 2017-08-15 11:19 | P.PN ---
Subjective Progress Note Date: 08/15/17 Yomaira Mcdonnell is an 87-year-old female well known to my practice who presented to [facility] emergency room with a chief complaint of worsening shortness of breath. She was evaluated in emergency room and was found to have atrial fibrillation with rapid ventricular response and evidence of acute exacerbation of congestive heart failure was pulmonary edema she was started on IV Cardizem drip and IV Lasix and was admitted to telemetry floor, cardiology consultation was requested. While on the telemetry floor patient continued to have rapid ventricular response with heart rate up to 140 bpm, Cardizem drip was increased from 5 mg/h to 10 mg/h, patient continued to have worsening shortness of breath through the night. Around 3 AM patient was having severe shortness of breath and evidence of oxygen desaturation, she was transferred to intensive care unit she was intubated and started on mechanical ventilation. consultation for Dr. Mark pulmonary critical care was initiated. Patient was seen on 08/11/2017 in intensive care unit she is intubated sedated maintained on mechanical ventilation she is requiring pressure support with IV levo fed, she is also on amiodarone drip, Cardizem drip, insulin drip, and IV heparin drip. Chest x-ray is revealing evidence of pulmonary edema, and by basilar infiltrates, patient is maintained on IV Lasix, she is also receiving IV Zithromax and IV Rocephin. EKG revealed atrial fibrillation was rapid ventricular response was a heart rate of 149, also revealed left bundle branch block, troponin level was slightly elevated at 0.087. On 08/12/2017 patient remains intubated sedated maintained on mechanical ventilation, vent setting is assist control rate of 24 tidal volume 350 FiO2 of 40% and PEEP of 5 patient still requiring norepinephrine drip, Cardizem drip, insulin drip, she also has an NG tube and is receiving protein supplement. Her 2 daughters are at bedside, and are aware of condition. 08/13/2017 patient remains intubated. Did not tolerate sedation holiday. She is currently in restarted on sedation. She still requiring vasopressor and Cardizem drip. Patient remains in atrial fibrillation heart rate in the 100s. 08/14/2017 patient not tolerate being off of sedation. Her heart rate and respiratory rate when up. She was on still unresponsive. The prevention had been restarted. She still requiring Levophed. Cardizem drip decreased to 10 yesterday. Followed closely by pulmonary and cardiology service. Echo shows an EF of 20%. She did have a fever of 102.7 this morning area did white count 12.4. Chest x-ray findings suggest continued congestive heart failure and pulmonary vascular congestion. Objective - Vital Signs Vital signs: Vital Signs Temp 99.7 F H 08/15/17 08:00 Pulse 90 08/15/17 10:00 Resp 24 08/15/17 10:00 BP 106/55 08/15/17 07:00 Pulse Ox 93 L 08/15/17 10:00 Intake & Output 08/14/17 08/15/17 08/15/17 18:59 06:59 18:59 Intake Total 0462.088 5406.669 564.5 Output Total 5539 987 7060 Balance 369.646 6925.669 -555.5 Weight 99.9 kg 101.7 kg Intake: Intake, IV Titration 0268.862 6029.669 414.5 Amount ACETAMINOPHEN IV (For NPO 100 ) 1,000 mg In Empty Bag 1 bag @ 400 mls/hr IVPB Q6HR PRN Rx#:[id number] Diltiazem 50 mg In Sodium 100 142.667 50 Chloride 0.9% 40 ml @ 10 MG/HR 10 mls/hr IV .Q5H [facility] Rx#:[id number] Heparin Sod,Pork in 0.45% 264.616 NaCl 25,000 unit In 0.45 % NaCl 1 500ml.bag @ 18 UNITS/KG/HR 31.84 mls/hr IV .[id number] [facility] Rx#: [id number] Norepinephrin 4 mg-0.9% 911.250 962.386 250 Ns Pmx 4 mg In 250 ml @ Titrate IV .Q0M [facility] Rx#: [id number] Propofol 1,000 mg In 301.583 283 114.5 Empty Bag 1 bag @ Titrate IV .Q0M [facility] Rx#: [id number] Tube Feeding 521 336 120 Other 90 90 30 Output: Urine 0641 342 3214 Other: Voiding Method Indwelling Catheter Indwelling Catheter Indwelling Catheter ABP, PAP, CO, CI - Last Documented Arterial Blood Pressure 104/49 - Exam Head normocephalic Neck supple Lungs clear to auscultation bilaterally no wheezing or crackles Heart irregular. A. fib on monitor Abdomen is soft nontender nondistended positive bowel sounds no hepatosplenomegaly Extremities no edema Neuro intubated and sedated - Labs CBC & Chem 7: 18 04:20 08/15/17 04:20 Labs: Abnormal Lab Results - Last 24 Hours (Table) 08/14/17 08/14/17 08/14/17 Range/Units 12:13 18:47 20:00 WBC 13.4 H (3.8-10.6) k/uL Neutrophils # 11.2 H (1.3-7.7) k/uL Lymphocytes # 0.7 L (1.0-4.8) k/uL Monocytes # 1.2 H (0-1.0) k/uL APTT (22.0-30.0) sec ABG pCO2 (35-45) mmHg ABG pO2 (83-108) mmHg ABG HCO3 (21-25) mmol/L ABG Total CO2 (19-24) mmol/L BUN (7-17) mg/dL Glucose (74-99) mg/dL POC Glucose (mg/dL) 267 H 243 H (75-99) mg/dL Calcium (8.4-10.2) mg/dL Magnesium (1.6-2.3) mg/dL 08/14/17 08/14/17 08/15/17 Range/Units 20:00 23:48 03:35 WBC (3.8-10.6) k/uL Neutrophils # (1.3-7.7) k/uL Lymphocytes # (1.0-4.8) k/uL Monocytes # (0-1.0) k/uL APTT 49.8 H (22.0-30.0) sec ABG pCO2 51 H (35-45) mmHg ABG pO2 66 L (83-108) mmHg ABG HCO3 28 H (21-25) mmol/L ABG Total CO2 30 H (19-24) mmol/L BUN (7-17) mg/dL Glucose (74-99) mg/dL POC Glucose (mg/dL) 199 H (75-99) mg/dL Calcium (8.4-10.2) mg/dL Magnesium (1.6-2.3) mg/dL 08/15/17 08/15/17 08/15/17 Range/Units 04:20 04:20 05:33 WBC 12.0 H (3.8-10.6) k/uL Neutrophils # 9.1 H (1.3-7.7) k/uL Lymphocytes # (1.0-4.8) k/uL Monocytes # (0-1.0) k/uL APTT (22.0-30.0) sec ABG pCO2 (35-45) mmHg ABG pO2 (83-108) mmHg ABG HCO3 (21-25) mmol/L ABG Total CO2 (19-24) mmol/L BUN 21 H (7-17) mg/dL Glucose 186 H (74-99) mg/dL POC Glucose (mg/dL) 193 H (75-99) mg/dL Calcium 8.0 L (8.4-10.2) mg/dL Magnesium 2.4 H (1.6-2.3) mg/dL Microbiology - Last 24 Hours (Table) 08/12/17 13:30 Blood Culture - Preliminary Blood No Growth after 48 hours 08/12/17 13:22 Blood Culture - Preliminary Blood No Growth after 48 hours 08/12/17 13:43 Gram Stain - Final Sputum Sputum Culture - Final Assessment and Plan Assessment: #1 acute hypoxic respiratory failure secondary to congestive heart failure, atrial fibrillation with RVR and possible pneumonia. Patient is requiring intubation and mechanical ventilation, vent setting adjusted by Dr. Tang #2 atrial fibrillation with rapid ventricular response heart rate is improving currently maintained on by mouth amiodarone and Cardizem drip #3 acute congestive heart failure exacerbation with evidence of pulmonary edema. Cardiology consultation requested echocardiogram showing an EF of 20% #4 Bibasilar infiltrate on chest x-ray. Evaluated with pulmonary service they doubt pneumonia. Antibiotics discontinued by pulmonary service. #5 elevated d-dimer at 6.82 patient is maintained on IV heparin, will have further evaluation for pulmonary embolism once her condition has improved, she will need to be on anticoagulation for atrial fibrillation regardless of testing results for pulmonary embolism. #6 underlying history of hypertension #7 underlying history of diabetes mellitus: Blood sugars remain elevated. We will increase her Levemir from 20 to 30 units. Patient is usually on Lantus 32 units at home. Blood sugars have been in the 200s #8 underlying history of anxiety disorder Condition is critical and prognosis is guarded CODE STATUS DO NOT RESUSCITATE I performed an examination of the patient and discussed their management with the physician Paralegal Secretary. I have reviewed the Physician Paralegal Secretary's notes and agree with the documented findings and plan of care
--- NOTE | 2017-08-15 11:23 | P.PN ---
Subjective Progress Note Date: 08/15/17 Principal diagnosis: Acute respiratory failure This is a pleasant 87-year-old female patient with a past medical history significant for severe cardiomyopathy based on an echocardiogram was performed in 2014, chronic atrial fibrillation, hypertension, dyslipidemia, presented to the emergency room complaining of shortness of breath. Currently the patient is intubated and she is on ventilatory. The history was taken from the chart as well as from her son who was bit side. The shortness of breath started about 3 days ago and has gotten worse since. She did not have any symptoms of chest pain or chest discomfort. When she presented to the emergency room, she was in mild respiratory distress and she was in A. fib with RVR. Initially the patient was admitted to the selective floor and she was started on Cardizem drip but apparently the shortness of breath get worse and the patient developed acute respiratory failure required intubation and mechanical ventilation. Beside that she was hypotensive requiring vasopressors was Levophed. The chest x-ray showed findings consistent with CHF. The cardiac enzymes are slightly abnormal. On follow-up with the patient today on 08/15/2017, the patient continues to be in acute respiratory failure and continues to be intubated and requiring 40% FiO2. Beside that hemodynamically she continues to be unstable and requiring high dose of Levophed. She continues to be in atrial fibrillation with slightly controlled heart rate. I am going to decrease the dose of Cardizem IV and continue weaning her from the Levophed. Overall the prognosis is very poor and that was discussed with the family. Objective - Vital Signs Vital signs: Vital Signs Temp 99.7 F H 08/15/17 08:00 Pulse 90 08/15/17 10:00 Resp 24 08/15/17 10:00 BP 106/55 08/15/17 07:00 Pulse Ox 93 L 08/15/17 10:00 Intake & Output 08/14/17 08/15/17 08/15/17 18:59 06:59 18:59 Intake Total 3949.157 7149.669 564.5 Output Total 2560 532 5072 Balance 556.611 3180.669 -555.5 Weight 99.9 kg 101.7 kg Intake: Intake, IV Titration 4500.217 4203.669 414.5 Amount ACETAMINOPHEN IV (For NPO 100 ) 1,000 mg In Empty Bag 1 bag @ 400 mls/hr IVPB Q6HR PRN Rx#:[id number] Diltiazem 50 mg In Sodium 100 142.667 50 Chloride 0.9% 40 ml @ 10 MG/HR 10 mls/hr IV .Q5H [facility] Rx#:[id number] Heparin Sod,Pork in 0.45% 264.616 NaCl 25,000 unit In 0.45 % NaCl 1 500ml.bag @ 18 UNITS/KG/HR 31.84 mls/hr IV .[id number] [facility] Rx#: [id number] Norepinephrin 4 mg-0.9% 911.250 962.386 250 Ns Pmx 4 mg In 250 ml @ Titrate IV .Q0M [facility] Rx#: [id number] Propofol 1,000 mg In 301.583 283 114.5 Empty Bag 1 bag @ Titrate IV .Q0M [facility] Rx#: [id number] Tube Feeding 521 336 120 Other 90 90 30 Output: Urine 5557 635 3773 Other: Voiding Method Indwelling Catheter Indwelling Catheter Indwelling Catheter ABP, PAP, CO, CI - Last Documented Arterial Blood Pressure 104/49 - Constitutional General appearance: Present: no acute distress - Respiratory Respiratory: bilateral: diminished - Cardiovascular Rhythm: irregularly irregular - Labs CBC & Chem 7: 08/15/17 04:20 08/15/17 04:20 Labs: Abnormal Lab Results - Last 24 Hours (Table) 08/14/17 08/14/17 08/14/17 Range/Units 12:13 18:47 20:00 WBC 13.4 H (3.8-10.6) k/uL Neutrophils # 11.2 H (1.3-7.7) k/uL Lymphocytes # 0.7 L (1.0-4.8) k/uL Monocytes # 1.2 H (0-1.0) k/uL APTT (22.0-30.0) sec ABG pCO2 (35-45) mmHg ABG pO2 (83-108) mmHg ABG HCO3 (21-25) mmol/L ABG Total CO2 (19-24) mmol/L BUN (7-17) mg/dL Glucose (74-99) mg/dL POC Glucose (mg/dL) 267 H 243 H (75-99) mg/dL Calcium (8.4-10.2) mg/dL Magnesium (1.6-2.3) mg/dL 08/14/17 08/14/17 08/15/17 Range/Units 20:00 23:48 03:35 WBC (3.8-10.6) k/uL Neutrophils # (1.3-7.7) k/uL Lymphocytes # (1.0-4.8) k/uL Monocytes # (0-1.0) k/uL APTT 49.8 H (22.0-30.0) sec ABG pCO2 51 H (35-45) mmHg ABG pO2 66 L (83-108) mmHg ABG HCO3 28 H (21-25) mmol/L ABG Total CO2 30 H (19-24) mmol/L BUN (7-17) mg/dL Glucose (74-99) mg/dL POC Glucose (mg/dL) 199 H (75-99) mg/dL Calcium (8.4-10.2) mg/dL Magnesium (1.6-2.3) mg/dL 08/15/17 08/15/17 08/15/17 Range/Units 04:20 04:20 05:33 WBC 12.0 H (3.8-10.6) k/uL Neutrophils # 9.1 H (1.3-7.7) k/uL Lymphocytes # (1.0-4.8) k/uL Monocytes # (0-1.0) k/uL APTT (22.0-30.0) sec ABG pCO2 (35-45) mmHg ABG pO2 (83-108) mmHg ABG HCO3 (21-25) mmol/L ABG Total CO2 (19-24) mmol/L BUN 21 H (7-17) mg/dL Glucose 186 H (74-99) mg/dL POC Glucose (mg/dL) 193 H (75-99) mg/dL Calcium 8.0 L (8.4-10.2) mg/dL Magnesium 2.4 H (1.6-2.3) mg/dL Microbiology - Last 24 Hours (Table) 08/12/17 13:30 Blood Culture - Preliminary Blood No Growth after 48 hours 08/12/17 13:22 Blood Culture - Preliminary Blood No Growth after 48 hours 08/12/17 13:43 Gram Stain - Final Sputum Sputum Culture - Final Assessment and Plan Assessment: Assessment #1 acute hypoxic respiratory failure #2 congestive heart failure exacerbation secondary to systolic dysfunction #3 atrial fibrillation with a rapid ventricular response #4 infiltrate on the chest x-ray likely related to pneumonia #5 shock likely to be septic #6 abnormal d-dimer #7 known severe cardiomyopathy Plan #1 try to wean the patient from the vasopressin at this point of time #Try to lower the dose of Cardizem IV #3 continue holding the heparin in view of the bleeding from the NG tube #4 follow-up with the patient The prognosis overall is poor.
[2017-08-15 11:55] LABS: Glucose,Whole Blood 199 mg/dL (75-99)
[2017-08-15] MEDS ORDERED: HEPARIN SODIUM,PORCINE 5,000 UNIT/ML 1 ML VIAL SQ SCH (16:00)
[2017-08-15 18:46] LABS: Glucose,Whole Blood 183 mg/dL (75-99)
[2017-08-15 20:26] VITALS: TEMP 99.2
[2017-08-15] MEDS ORDERED: ARTIFICIAL TEARS-HYPROMELLOSE DROPS 15 ML BTL BOTH EYES PRN (20:31)
[2017-08-15] MEDS ORDERED: MORPHINE SULFATE (100 MG/2 ML) 100 MG in SODIUM CHLORIDE 0.9% 100 ML IV SCH (21:00)
[2017-08-16 01:14] VITALS: BP 80/42; PULSE 108; RESP 11
--- NOTE | 2017-08-19 11:32 | CDI ---
Last Revision, April 2017 Documentation Clarification Form Date: 08/19/2017 11:25:00 AM From: Arianna Rowe Mera Vega, Global Compensation Manager between 8:30 am & 5 pm Deanne Admit Date: 08/10/2017 2:26:00 PM Patient Name: Yomaira Mcdonnell Visit Number: [id number] Discharge Date: 08/16/17 ATTENTION: The Clinical Documentation Specialists (CDI) and [facility] Coding Staff appreciate your assistance in clarifying documentation. Please respond to the clarification below the line at the bottom and electronically sign. The CDI & [facility] Coding staff will review the response and follow-up if needed. Please note: Queries are made part of the Legal Health Record. If you have any questions, please contact the author of this message via ITS. Dr. Tamiko Lee Conflicting documentation has been found in the medical record. Dr Da Silva documents in his consult "shock likely to be septic". On admission WBC: 10, Neutrophils: 8.0 On 08/11 WBC: 19.1, Neutrophils: 13.6:Lactic acid: 2.3 & 2.1; Lactic acid reflex: Y; ABG pH: 7.20 Temp on 08/12: 102.0, P-elevated; R-26 up 37; hypotensive on 08/11 In your professional opinion, please clarify if these findings signify one of the following conditions, whether the condition is POA, and cause, if known: Sepsis ruled out Sepsis ruled in with septic shock or shock Present on Admission: Yes No Other explanation of clinical findings Unable to determine (no explanation for clinical findings) Please continue to document in your progress notes and discharge summary in order to capture severity of illness and risk of mortality. Include clinical findings that support your diagnosis. Sepsis with septic shock present on admission [facility]
--- NOTE | 2017-08-30 14:57 | P.DS ---
Providers Date of admission: 08/10/17 14:26 Expected date of discharge: 08/15/17 Attending physician: Tamiko Lee Consults: 08/10/17 14:26 Consult Physician Urgent Consulting Provider: Jersey Cueva Consult Reason/Comments: afib Do you want consulting provider notified?: Yes 08/11/17 01:30 Consult Physician Urgent Consulting Provider: Jorge Mark Consult Reason/Comments: huc Do you want consulting provider notified?: Yes Primary care physician: Tamiko Jesus [facility] Course: summary Preliminary cause of acute respiratory failure secondary to pneumonia and congestive heart failure #1 acute hypoxic respiratory failure secondary to congestive heart failure, atrial fibrillation with RVR and possible pneumonia. Patient is requiring intubation and mechanical ventilation, vent setting adjusted by Dr. Tang #2 atrial fibrillation with rapid ventricular response heart rate is improving currently maintained on by mouth amiodarone and Cardizem drip #3 acute congestive heart failure exacerbation with evidence of pulmonary edema. Cardiology consultation requested echocardiogram showing an EF of 20% #4 Bibasilar infiltrate on chest x-ray. Evaluated with pulmonary service they doubt pneumonia. Antibiotics discontinued by pulmonary service. #5 elevated d-dimer at 6.82 patient is maintained on IV heparin, will have further evaluation for pulmonary embolism once her condition has improved, she will need to be on anticoagulation for atrial fibrillation regardless of testing results for pulmonary embolism. #6 underlying history of hypertension #7 underlying history of diabetes mellitus: Blood sugars remain elevated. We will increase her Levemir from 20 to 30 units. Patient is usually on Lantus 32 units at home. Blood sugars have been in the 200s #8 underlying history of anxiety disorder #9 sepsis with septic shock present on admission Hospital course Yomaira Mcdonnell is an 87-year-old female well known to my practice who presented to [facility] emergency room with a chief complaint of worsening shortness of breath. She was evaluated in emergency room and was found to have atrial fibrillation with rapid ventricular response and evidence of acute exacerbation of congestive heart failure was pulmonary edema she was started on IV Cardizem drip and IV Lasix and was admitted to telemetry floor, cardiology consultation was requested. While on the telemetry floor patient continued to have rapid ventricular response with heart rate up to 140 bpm, Cardizem drip was increased from 5 mg/h to 10 mg/h, patient continued to have worsening shortness of breath through the night. Around 3 AM patient was having severe shortness of breath and evidence of oxygen desaturation, she was transferred to intensive care unit she was intubated and started on mechanical ventilation. consultation for Dr. Mark pulmonary critical care was initiated. Patient was seen on 08/11/2017 in intensive care unit she is intubated sedated maintained on mechanical ventilation she is requiring pressure support with IV levo fed, she is also on amiodarone drip, Cardizem drip, insulin drip, and IV heparin drip. Chest x-ray is revealing evidence of pulmonary edema, and by basilar infiltrates, patient is maintained on IV Lasix, she is also receiving IV Zithromax and IV Rocephin. EKG revealed atrial fibrillation was rapid ventricular response was a heart rate of 149, also revealed left bundle branch block, troponin level was slightly elevated at 0.087. On 08/12/2017 patient remains intubated sedated maintained on mechanical ventilation, vent setting is assist control rate of 24 tidal volume 350 FiO2 of 40% and PEEP of 5 patient still requiring norepinephrine drip, Cardizem drip, insulin drip, she also has an NG tube and is receiving protein supplement. Her 2 daughters are at bedside, and are aware of condition. 08/13/2017 patient remains intubated. Did not tolerate sedation holiday. She is currently in restarted on sedation. She still requiring vasopressor and Cardizem drip. Patient remains in atrial fibrillation heart rate in the 100s. 08/14/2017 patient not tolerate being off of sedation. Her heart rate and respiratory rate when up. She was on still unresponsive. The prevention had been restarted. She still requiring Levophed. Cardizem drip decreased to 10 yesterday. Followed closely by pulmonary and cardiology service. Echo shows an EF of 20%. She did have a fever of 102.7 this morning area did white count 12.4. Chest x-ray findings suggest continued congestive heart failure and pulmonary vascular congestion. Patient's overall condition was very poor and guarded. Condition did not improve with aggressive management. Family was informed of patient's poor prognosis. Decided to make patient comfort care. Patient on 2017. Please refer to chart for any further details. Patient Condition at Discharge: Poor Plan - Discharge Summary New Discharge Prescriptions: No Action Insulin Glargine [Lantus] 32 unit SQ DAILY clonazePAM [KlonoPIN] 1 mg PO TID PRN PRN Reason: Anxiety Atenolol [Tenormin] 25 mg PO DAILY Potassium Chloride [Klor-Con 10] 10 meq PO DAILY Furosemide [Lasix] 40 mg PO DAILY Digoxin [Lanoxin] 125 mcg PO DAILY Discharge Medication List Atenolol [Tenormin] 25 mg PO DAILY 08/07/14 [History] Digoxin [Lanoxin] 125 mcg PO DAILY 08/07/14 [History] Furosemide [Lasix] 40 mg PO DAILY 08/07/14 [History] Insulin Glargine [Lantus] 32 unit SQ DAILY 08/07/14 [History] Potassium Chloride [Klor-Con 10] 10 meq PO DAILY 08/07/14 [History] clonazePAM [KlonoPIN] 1 mg PO TID PRN 08/07/14 [History] Follow up Appointment(s)/Referral(s): Tamiko Lee MD [Primary Care Provider] - 1-2 days Discharge Disposition: - Preliminary Cause of Preliminary Cause of : Acute hypoxic respiratory failure secondary to congestive heart failure and
== END 2017-08-16 00:38 | disposition expired | DRG 870 ==
LOC: EC 12:53 → 6SEL 14:26 → 6ICU 08-11 01:36
PROVIDERS: ADMIT Internal Medicine; ATTEND Internal Medicine
PROC: 5A1955Z Respiratory Ventilation, Greater than 96 Consecutive Hours (ICD-10-PCS; principal; 2017-08-10)
PROC: 0BH17EZ Insertion of Endotracheal Airway into Trachea, Via Natural or Artificial Opening (ICD-10-PCS; 2017-08-10)
PROC: 0D9670Z Drainage of Stomach with Drainage Device, Via Natural or Artificial Opening (ICD-10-PCS; 2017-08-11)
PROC: 3E0G76Z Introduction of Nutritional Substance into Upper GI, Via Natural or Artificial Opening (ICD-10-PCS; 2017-08-11)
DX: A41.9 Sepsis, unspecified organism (principal); J96.01 Acute respiratory failure with hypoxia; J18.9 Pneumonia, unspecified organism; I50.23 Acute on chronic systolic (congestive) heart failure; R65.21 Severe sepsis with septic shock; I43 Cardiomyopathy in diseases classified elsewhere; J44.1 Chronic obstructive pulmonary disease with (acute) exacerbation; J44.0 Chronic obstructive pulmonary disease with (acute) lower respiratory infection; I48.2 Chronic atrial fibrillation; I11.0 Hypertensive heart disease with heart failure; R04.2 Hemoptysis; Z66 Do not resuscitate; Z51.5 Encounter for palliative care; I44.7 Left bundle-branch block, unspecified; E11.9 Type 2 diabetes mellitus without complications; F41.9 Anxiety disorder, unspecified; E78.5 Hyperlipidemia, unspecified; I25.2 Old myocardial infarction; R79.1 Abnormal coagulation profile; M71.20 Synovial cyst of popliteal space [Baker], unspecified knee; Z79.4 Long term (current) use of insulin; Z79.899 Other long term (current) drug therapy; Z88.1 Allergy status to other antibiotic agents; Z88.5 Allergy status to narcotic agent; Z88.0 Allergy status to penicillin; Z88.2 Allergy status to sulfonamides; Z88.8 Allergy status to other drugs, medicaments and biological substances; Z96.651 Presence of right artificial knee joint; Z82.49 Family history of ischemic heart disease and other diseases of the circulatory system
CPT/HCPCS: 36415; 36600; 71045; 71046; 80048; 80053; 80061; 81003; 82533; 82550; 82553; 82805; 83036; 83605; 83735; 83880; 84100; 84484; 85025; 85379; 85610; 85730; 87040; 87070; 87086; 87205; 93005; 93306; 93970; 94002; 94003; 96365; 99291